=== PATIENT | male | born 1960 | race Caucasian/White ===

== ENCOUNTER → 2016-10-17 | Outpatient (CLI) | payer OTHER | END | disposition home or self-care (01) | LOC: LABWHC1 07:13 | PROVIDERS: ATTEND Nurse Practitioner | DX: F31.9 Bipolar disorder, unspecified (principal) | CPT/HCPCS: 36415; 80164 ==

== ENCOUNTER 2017-11-18 08:32 | Inpatient (IN) | payer MEDICAID, OTHER ==
--- NOTE | 2017-11-18 09:02 | ED ---
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 He states he was on and off yesterday. States this started again this morning when he woke up. He denies any injury or trauma to the area. Patient states bleeding seems to have stopped again at this time. Patient does admit that he does have some seasonal ALLERGIES. He states had some drainage coming from the nose. Patient also admits that his had thoughts of hurting himself over the last few weeks. He denies any specific plan. He does admit that he is bipolar. States he has been taking his medications here states that he has been approximately 3 weeks since he seen his counselor. He denies any homicidal thoughts or plans. Patient denies any other complaints. Patient denies any recent fever, chills, shortness of breath, chest pain, back pain, abdominal pain, dysuria or hematuria , constipation or diarrhea, headaches or visual changes, or any other complaints. - Related Data Home Medications Medication Instructions Recorded Confirmed clonazePAM [KlonoPIN] 1 mg PO TID 04/17/15 11/18/17 DULoxetine HCL [Cymbalta] 30 mg PO TID 11/18/17 11/18/17 lamoTRIgine 150 mg PO DAILY 11/18/17 11/18/17 Allergies Allergy/AdvReac Type Severity Reaction Status Date / Time No Known Allergies Allergy Verified 04/17/15 09:20 Review of Systems ROS Statement: Those systems with pertinent positive or pertinent negative responses have been documented in the HPI. ROS Other: All systems not noted in ROS Statement are negative. Past Medical History Past Medical History: Hypertension Additional Past Medical History / Comment(s): HX HTN-RESOLVED NOW PER PT, chronic back pain, anxiety, depression, and alcohol abuse. History of Any Multi-Drug Resistant Organisms: None Reported Past Surgical History: Back Surgery, Bladder Surgery, Hernia Repair Additional Past Surgical History / Comment(s): back surgery 2004 Past Anesthesia/Blood Transfusion Reactions: Motion Sickness Past Psychological History: Anxiety, Depression Smoking Status: Current every day smoker Past Alcohol Use History: Abuse, Heavy Past Drug Use History: None Reported - Past Family History Father Family Medical History: Coronary Artery Disease (CAD) Additional Family Medical History / Comment(s): Bipolar, Heart problems- Open Heart Mother Family Medical History: Cancer, Coronary Artery Disease (CAD) Additional Family Medical History / Comment(s): Breast Ca-Hx.Open Heart General Exam - General Exam Comments Initial Comments: General: The patient is awake and alert, in no distress, and does not appear acutely ill. Eye: Pupils are equal, round and reactive to light. Extra-ocular movements are intact. No nystagmus. There is normal conjunctiva bilaterally. No signs of icterus. Ears, nose, mouth and throat: There are moist mucous membranes and no oral lesions. Right left nostrils are clear no active bleeding. Posterior pharynx clear. Neck: The neck is supple, there is no tenderness or JVD. Cardiovascular: There is a regular rate and rhythm. No murmur, rub or gallop is appreciated. Respiratory: Lungs are clear to auscultation, respirations are non-labored, breath sounds are equal. No wheezes, stridor, rales, or rhonchi. Musculoskeletal: Normal ROM, no tenderness. Sensation intact. Strength 5/5. Pulses equal bilaterally 2+. Neurological: A&O x 3. CN II-XII intact, There are no obvious motor or sensory deficits. Coordination appears grossly intact. Speech is normal. Skin: Skin is warm and dry and no rashes or lesions are noted. Psychiatric: Cooperative Limitations: no limitations Course Vital Signs 11/18/17 08:51 Temperature 97.0 F L Pulse Rate 91 Respiratory 18 Rate Blood Pressure 127/68 O2 Sat by Pulse 96 Oximetry Medical Decision Making - Lab Data Lab Results 11/18/17 Range/Units 10:10 Urine Opiates Screen Not Detected (NotDetected) Ur Oxycodone Screen Not Detected (NotDetected) Urine Methadone Screen Not Detected (NotDetected) Ur Propoxyphene Screen Not Detected (NotDetected) Ur Barbiturates Screen Not Detected (NotDetected) U Tricyclic Antidepress Not Detected (NotDetected) Ur Phencyclidine Scrn Not Detected (NotDetected) Ur Amphetamines Screen Not Detected (NotDetected) U Methamphetamines Scrn Not Detected (NotDetected) U Benzodiazepines Scrn Not Detected (NotDetected) Urine Cocaine Screen Not Detected (NotDetected) U Marijuana (THC) Screen Not Detected (NotDetected) Disposition Clinical Impression: Suicidal ideation, Alcohol intoxication Disposition: ADMITTED IP TO THIS HOSP Condition: Stable Is patient prescribed a controlled substance at d/c from ED?: No Referrals: None,Stated [Primary Care Provider] - 1-2 days Time of Disposition: 13:42
[2017-11-18 11:30] LABS: Amphetamine Screen,Urine Not Detected (NotDetected); Barbiturate Screen,Urine Not Detected (NotDetected); Benzodiazepines Screen,Urine Not Detected (NotDetected); Cocaine Screen,Urine Not Detected (NotDetected); Methadone Screen, Urine Not Detected (NotDetected); Opiate Screen,Urine Not Detected (NotDetected); Oxycodone Screen, Urine Not Detected (NotDetected); Phencyclidine Screen,Urine Not Detected (NotDetected); Tricyclic Antidepressant,Urine Not Detected (NotDetected); Urn Cannabinoid Scrn Not Detected (NotDetected)
[2017-11-18] MEDS ORDERED: MAG HYDROX/AL HYDROX/SIMETH 30 ML CUP PO PRN (13:59)
[2017-11-18] MEDS ORDERED: ACETAMINOPHEN TAB 325 MG TAB PO PRN (13:59)
[2017-11-18] MEDS ORDERED: MAGNESIUM HYDROXIDE 2,400 MG/10 ML CUP PO PRN (13:59)
[2017-11-18] MEDS: NICOTINE 21MG/24HR PATCH TRANSDERM SCH (14:52)
[2017-11-18 15:07] VITALS: BMI 21.7
[2017-11-18] MEDS ORDERED: cloNIDine HCL 0.1 MG TAB PO STA (15:27)
[2017-11-18] MEDS ORDERED: OXYMETAZOLINE 0.05% NASL SPRAY 1 SPRAY BOTTLE NASAL STA (15:44)
[2017-11-18 16:20] LABS: Basophils % (A) 1 %; Eosinophils # (A) 0.2 k/uL (0-0.7); Eosinophils % (A) 2 %; HCT 50.3 % (39.0-53.0); HGB 15.9 gm/dL (13.0-17.5); Lymphocytes # (A) 1.2 k/uL (1.0-4.8); Lymphocytes % (A) 15 %; MCH 31.9 pg (25.0-35.0); MCHC 31.7 g/dL (31.0-37.0); MCV 100.6 fL (80.0-100.0); Mean Platelet Volume 6.2; Monocytes # (A) 0.9 k/uL (0-1.0); Monocytes % (A) 11 %; Neutrophils # (A) 5.5 k/uL (1.3-7.7); Neutrophils % (A) 70 %; Platelet Count 346 k/uL (150-450); RDW 13.4 % (11.5-15.5)
[2017-11-18 16:21] LABS: Prothrombin Time 9.5 sec (9.0-12.0)
[2017-11-18 16:29] LABS: ALT 83 U/L (21-72); AST 87 U/L (17-59); Albumin 4.4 g/dL (3.5-5.0); Alkaline Phosphatase 49 U/L (38-126); Anion Gap 9 mmol/L; Blood Urea Nitrogen 9 mg/dL (9-20); Calcium 9.1 mg/dL (8.4-10.2); Carbon Dioxide 28 mmol/L (22-30); Chloride 96 mmol/L (98-107); Glucose 95 mg/dL (74-99); Potassium 4.9 mmol/L (3.5-5.1); Sodium 133 mmol/L (137-145); Total Bilirubin 0.3 mg/dL (0.2-1.3); Total Protein 7.3 g/dL (6.3-8.2)
--- NOTE | 2017-11-18 16:30 | P.HPMEDMHU ---
History of Present Illness H&P Date: 11/18/17 Chief Complaint: Consult for MHU HPI 56-year-old male presented to the emergency room today by EMS, with chief complaint of epistaxis that started yesterday. He states he was on and off yesterday. States this started again this morning when he woke up. He denies any injury or trauma to the area. Patient states bleeding seems to have stopped again at this time. Patient does admit that he does have some seasonal ALLERGIES. He states had some drainage coming from the nose. Patient also admits that his had fleeting thoughts of hurting himself over the last few weeks. He denies any specific plan, but mentions he would jump off the bridge. He does admit that he is bipolar. States he has been taking his medications here states that he has been approximately 3 weeks since he seen his counselor. He denies any homicidal thoughts or plans. Patient denies any other complaints. Patient denies any recent fever, chills, shortness of breath, chest pain, back pain, abdominal pain, dysuria or hematuria, constipation or diarrhea , headaches or visual changes, or any other complaints. Per nursing reports apparently the patient blew .092 on BAT. He reports his last drink being at 1 AM this morning, has a history of alcohol withdrawals, usually drinks 6 beers daily. He was recommended for admission to the mental health unit, on arrival the patient began having right-sided nosebleed. Review of Systems Pertinent positives per HPI all other review of systems are otherwise negative Past Medical History Past Medical History: Hypertension Additional Past Medical History / Comment(s): HX HTN-RESOLVED NOW PER PT, chronic back pain/DDD, anxiety, depression, and alcohol abuse, Sinusitis, Epistaxis, Poor balance History of Any Multi-Drug Resistant Organisms: None Reported Past Surgical History: Back Surgery, Bladder Surgery, Hernia Repair Additional Past Surgical History / Comment(s): back surgery 2004 Past Anesthesia/Blood Transfusion Reactions: No Reported Reaction Past Psychological History: Anxiety, Bipolar, Depression Smoking Status: Current every day smoker Past Alcohol Use History: Abuse, Heavy Additional Past Alcohol Use History / Comment(s): 6 beers daily last drink at 0100 Past Drug Use History: None Reported - Past Family History Father Family Medical History: Coronary Artery Disease (CAD) Additional Family Medical History / Comment(s): Bipolar, Heart problems- Open Heart Mother Family Medical History: Cancer, Coronary Artery Disease (CAD) Additional Family Medical History / Comment(s): Breast Ca-Hx.Open Heart Medications and Allergies Home Medications Medication Instructions Recorded Confirmed Type clonazePAM [KlonoPIN] 1 mg PO TID 04/17/15 11/18/17 History DULoxetine HCL [Cymbalta] 30 mg PO TID 11/18/17 11/18/17 History lamoTRIgine 150 mg PO DAILY 11/18/17 11/18/17 History Allergies Allergy/AdvReac Type Severity Reaction Status Date / Time No Known Allergies Allergy Verified 11/18/17 15:36 Physical Exam Vitals: Vital Signs Temp Pulse Pulse Resp BP BP Pulse Ox 11/18/17 14:52 97.0 F L 98 20 157/97 97 11/18/17 08:51 97.0 F L 91 18 127/68 96 Intake and Output 11/18/17 11/18/17 11/18/17 06:59 14:59 22:59 Other: Weight 66.933 kg Constitutional: No acute distress, conversant, pleasant Eyes: Anicteric sclerae, moist conjunctiva, no lid-lag, PERRLA ENMT: NC/AT,Oropharynx clear, no erythema, exudates, kleenex packed in R nare Neck:Supple, FROM, no masses, or JVD, No carotid bruits; No thyromegaly Lungs: Clear to auscultation, Clear to percussion, Normal respiratory effort, no accessory muscle use Cardiovascular: Heart regular in rate and rhythm, No murmurs, gallops, or rubs no peripheral edema Abdominal: Soft Nontender, nom distended, no guarding, no rebound or rigidity, Normoactive bowel sounds No hepatomegaly, No splenomegaly, No palpable mass No abdominal wall hernia noted Skin: Normal temperature, tone, texture, turgor, No induration No subcutaneous nodules, No rash, lesions, No ulcers Extremities:No digital cyanosis No clubbing, Pedal pulses intact and symmetrical Radial pulses intact and symmetrical Normal gait and station, No calf tenderness Psychiatric: Alert and oriented to person, place and time, Appropriate affect Intact judgement Neuro: Muscles Strength 5/5 in all 4 extremities, Sensation to light touch grossly present throughout, Cranial nerves II-XII grossly intact. No focal sensory deficits Cranial Nerve Examination - Cranial Nerves Cranial Nerve II- Optic: Intact Cranial Nerve III- Oculomotor: Intact Cranial Nerve IV- Trochlear: Intact Cranial Nerve V- Trigeminal: Intact Cranial Nerve - Abducens: Intact Cranial Nerve VII- Facial: Intact Cranial Nerve VIII- Auditory: Intact Cranial Nerve IX- Glossopharyngeal: Intact Cranial Nerve X- Vagus: Intact Cranial Nerve XI- Accessory: Intact Cranial Nerve XII- Hypoglossal: Intact Results CBC & Chem 7: 11/18/17 15:51 Thrombosis Risk Factor Assmnt - Choose All That Apply Each Factor Represents 1 point: Age 41-60 years Other Risk Factors: No Other congenital or acquired thrombophilia - If yes, enter type in comment: No Thrombosis Risk Factor Assessment Total Risk Factor Score: 1 Thrombosis Risk Factor Assessment Level: Low Risk Assessment and Plan (1) Epistaxis Current Visit: Yes Status: Acute Code(s): R04.0 - EPISTAXIS SNOMED Code(s) : 751465308 (2) Suicidal ideation Current Visit: Yes Status: Acute Code(s): R45.851 - SUICIDAL IDEATIONS SNOMED Code(s): 8406095 (3) Alcohol intoxication Current Visit: Yes Status: Chronic Priority: Medium Code(s): F10.129 - ALCOHOL ABUSE WITH INTOXICATION, UNSPECIFIED SNOMED Code(s): 05868132 Plan: Patient is admitted to the mental health unit we'll defer to acute inpatient psychiatry treatment for all medical psychotherapy and ongoing CBT therapy. Given patient's history of alcoholism and he did present with acute alcohol intoxication, we'll monitor the patient for alcohol withdrawal. Check stat labs , CBC CMP PT/INR. For his epistaxis will give 2 sprays of Afrin intranasally along with Merocel packing covered by bacitracin. We'll continue to monitor patient's clinical course
[2017-11-18] MEDS: cloNIDine HCL 0.1 MG TAB PO SCH (20:01)
[2017-11-19] MEDS: NICOTINE 21MG/24HR PATCH TRANSDERM SCH (08:04)
[2017-11-19] MEDS: lamoTRIgine 100 MG TAB PO SCH (08:04)
[2017-11-19] MEDS: cloNIDine HCL 0.1 MG TAB PO SCH ×2 (08:05→19:47)
[2017-11-19 10:01] LABS: Basophils % (A) 1 %; Eosinophils # (A) 0.1 k/uL (0-0.7); Eosinophils % (A) 2 %; HCT 51.7 % (39.0-53.0); HGB 16.2 gm/dL (13.0-17.5); Lymphocytes # (A) 1.1 k/uL (1.0-4.8); Lymphocytes % (A) 19 %; MCH 31.4 pg (25.0-35.0); MCHC 31.3 g/dL (31.0-37.0); MCV 100.3 fL (80.0-100.0); Mean Platelet Volume 6.4; Monocytes # (A) 0.9 k/uL (0-1.0); Monocytes % (A) 16 %; Neutrophils # (A) 3.3 k/uL (1.3-7.7); Neutrophils % (A) 60 %; Platelet Count 382 k/uL (150-450); RBC 5.15 m/uL (4.30-5.90); RDW 13.3 % (11.5-15.5); WBC 5.5 k/uL (3.8-10.6)
[2017-11-19 10:11] LABS: ALT 77 U/L (21-72); AST 69 U/L (17-59); Albumin 4.4 g/dL (3.5-5.0); Alkaline Phosphatase 45 U/L (38-126); Anion Gap 9 mmol/L; Blood Urea Nitrogen 14 mg/dL (9-20); Calcium 9.8 mg/dL (8.4-10.2); Carbon Dioxide 31 mmol/L (22-30); Chloride 96 mmol/L (98-107); Glucose 78 mg/dL (74-99); Potassium 4.9 mmol/L (3.5-5.1); Sodium 136 mmol/L (137-145); Total Bilirubin 0.4 mg/dL (0.2-1.3); Total Protein 7.3 g/dL (6.3-8.2)
--- NOTE | 2017-11-19 11:00 | P.HP ---
Psychiatric H&P - . History & Physical: Allergies Allergy/AdvReac Type Severity Reaction Status Date / Time No Known Allergies Allergy Verified 11/18/17 15:36 Vital Signs Temp 98 F 11/19/17 06:20 Pulse 121 H 11/19/17 08:06 Resp 18 11/19/17 08:06 BP 135/87 11/19/17 08:06 Pulse Ox 97 11/18/17 14:52 Intake & Output 11/18/17 11/19/17 11/19/17 18:59 06:59 18:59 Weight 66.933 kg Laboratory Last Values WBC 5.5 k/uL (3.8-10.6) 11/19/17 09:33 RBC 5.15 m/uL (4.30-5.90) 11/19/17 09:33 Hgb 16.2 gm/dL (13.0-17.5) 11/19/17 09:33 Hct 51.7 % (39.0-53.0) 11/19/17 09:33 MCV 100.3 fL (80.0-100.0) H 11/19/17 09:33 MCH 31.4 pg (25.0-35.0) 11/19/17 09:33 MCHC 31.3 g/dL (31.0-37.0) 11/19/17 09:33 RDW 13.3 % (11.5-15.5) 11/19/17 09:33 Plt Count 382 k/uL (150-450) 11/19/17 09:33 Neutrophils % 60 % 11/19/17 09:33 Lymphocytes % 19 % 11/19/17 09:33 Monocytes % 16 % 11/19/17 09:33 Eosinophils % 2 % 11/19/17 09:33 Basophils % 1 % 11/19/17 09:33 Neutrophils # 3.3 k/uL (1.3-7.7) 11/19/17 09:33 Lymphocytes # 1.1 k/uL (1.0-4.8) 11/19/17 09:33 Monocytes # 0.9 k/uL (0-1.0) 11/19/17 09:33 Eosinophils # 0.1 k/uL (0-0.7) 11/19/17 09:33 Basophils # 0.0 k/uL (0-0.2) 11/19/17 09:33 PT 9.5 sec (9.0-12.0) 11/18/17 15:51 INR 1.0 (<1.2) 11/18/17 15:51 Sodium 136 mmol/L (137-145) L 11/19/17 09:33 Potassium 4.9 mmol/L (3.5-5.1) 11/19/17 09:33 Chloride 96 mmol/L (98-107) L 11/19/17 09:33 Carbon Dioxide 31 mmol/L (22-30) H 11/19/17 09:33 Anion Gap 9 mmol/L 11/19/17 09:33 BUN 14 mg/dL (9-20) 11/19/17 09:33 Creatinine 0.87 mg/dL (0.66-1.25) 11/19/17 09:33 Est GFR (CKD-EPI)AfAm >90 (>60 ml/min/1.73 sqM) 11/19/17 09:33 Est GFR (CKD-EPI)NonAf >90 (>60 ml/min/1.73 sqM) 11/19/17 09:33 Glucose 78 mg/dL (74-99) 11/19/17 09:33 Calcium 9.8 mg/dL (8.4-10.2) 11/19/17 09:33 Total Bilirubin 0.4 mg/dL (0.2-1.3) 11/19/17 09:33 AST 69 U/L (17-59) H 11/19/17 09:33 ALT 77 U/L (21-72) H 11/19/17 09:33 Alkaline Phosphatase 45 U/L (38-126) 11/19/17 09:33 Total Protein 7.3 g/dL (6.3-8.2) 11/19/17 09:33 Albumin 4.4 g/dL (3.5-5.0) 11/19/17 09:33 TSH 1.610 mIU/L (0.465-4.680) 11/19/17 09:33 Urine Opiates Screen Not Detected (NotDetected) 11/18/17 10:10 Ur Oxycodone Screen Not Detected (NotDetected) 11/18/17 10:10 Urine Methadone Screen Not Detected (NotDetected) 11/18/17 10:10 Ur Propoxyphene Screen Not Detected (NotDetected) 11/18/17 10:10 Ur Barbiturates Screen Not Detected (NotDetected) 11/18/17 10:10 U Tricyclic Antidepress Not Detected (NotDetected) 11/18/17 10:10 Ur Phencyclidine Scrn Not Detected (NotDetected) 11/18/17 10:10 Ur Amphetamines Screen Not Detected (NotDetected) 11/18/17 10:10 U Methamphetamines Scrn Not Detected (NotDetected) 11/18/17 10:10 U Benzodiazepines Scrn Not Detected (NotDetected) 11/18/17 10:10 Urine Cocaine Screen Not Detected (NotDetected) 11/18/17 10:10 U Marijuana (THC) Screen Not Detected (NotDetected) 11/18/17 10:10 11/19/17 10:51 IDENTIFYING DATA: This patient is a 56-year-old single male who was admitted to the mental health unit with a report of suicidal ideation in the context of alcohol intoxication. HPI: The patient presented to the emergency room with epistaxis. This was treated and during the course of his evaluation he reported having suicidal thoughts. He had verbalized to the psychiatric nurse that he had thoughts of drowning himself in the [place] or hanging himself. He had reported a history of bipolar disorder. It was noted that the patient was a poor historian and demonstrated evidence of confusion. Today the patient is pleasant and cooperative but continues to appear disorganized. He will have moments where he is more lucid but he is struggling with focused concentration and retaining information. He is not able to answer questions sufficiently enough to determine if he does have a bipolar illness. He reports feeling safe in the hospital. He describes no homicidal ideation. He is reporting no auditory or visual hallucinations or any specific delusions. Insight and judgment are impaired. He describes a history of anxiety symptoms but again struggles with specifying. PAST PSYCHIATRIC HISTORY: The patient's second psychiatric admission. He was on this mental health unit in October 2016. He has been [facility] at [facility] He has been on Cymbalta Klonopin Lamictal and Depakote. He states most recently he is on Cymbalta 20 mg 3 times a day, Klonopin 1 mg 3 times a day, Lamictal 150 mg daily. No history of suicide attempts. PMH: Chronic back pain with sciatica ALLERGIES: NO KNOWN DRUG ALLERGIES MEDICATIONS: As above CHEMICAL DEPENDENCY HISTORY: He reports using alcohol on a daily basis having at least 8 beers but oftentimes up to 14. He's been doing this for several months and prior to that he was drinking two thirds of a gallon of vodka a day. He has been in residential treatment twice the last was at [facility]. Arrangements have been made for him to go to [facility] again once he is psychiatrically stable and he is agreeable. FAMILY PSYCHIATRIC HISTORY: Several family members known to have depression and anxiety, no suicides in the family FAMILY CHEMICAL DEPENDENCY HISTORY: Several family members known to struggle with alcohol use SOCIAL HISTORY: The patient is 56 years old he single he has 2 adult children that reside in [place] one is a physician in one is a dentist. He lives alone in his own apartment. He has been unemployed since 1995 and is on a disability income. He has a 12th grade education no history of service. He has 2 brothers and 3 sisters. No legal history. No abuse history. MENTAL STATUS EXAM: The patient is a thin vanessa male appearing his stated age. He is mildly disheveled. He is pleasant and cooperative but overall appears somewhat confused. Speech is fluent and spontaneous. He appears distractible. He loses focus during the course of our conversation requiring me to repeat statements or reexplain answers to questions asked. He is reporting no suicidal or homicidal thoughts now and gives a disorganized description of his suicidal thoughts yesterday. He is reporting no auditory or visual hallucinations. He states he has struggle with paranoid thoughts in the past but feels safe here. With outstretched arms he demonstrates a fine tremor of his upper extremities. He demonstrates no verbal or physical aggressiveness. He is oriented to person place and date. He was able to name the days the week backwards after 3 trials. STRENGTHS/WEAKNESSES: Strengths: Willingness to receive voluntary treatment and willingness to go to inpatient chemical dependency treatment weaknesses ongoing alcohol use disorder INTELLECTUAL FUNCTIONING: Average IMPRESSIONS: [] 1. Depression unspecified, rule out major depressive disorder rule out bipolar depression, alcohol use disorder 2. Medical comorbidities include chronic pain PLAN: The patient has been admitted to the mental health unit he has signed in voluntarily. We reviewed his presenting symptoms and treatment options. I am unable to determine if he in fact has a bipolar disorder at this time conservatively we will remain off of the Cymbalta and continue the Lamictal. I will prescribe Ativan 1 mg 3 times a day scheduled and 1 mg every 2 hours as needed for alcohol withdrawal. We will monitor him closely using the CIME protocol. The patient is willing to attend inpatient chemical dependency treatment but at this time he is not appropriate for that level of care. Due to his disorganization he would not be able to benefit from the groups and requires further stabilization. Vital signs reviewed. He has been seen by internal medicine social work will meet with him to complete a psychosocial assessment.
[2017-11-19] MEDS: FOLIC ACID 1 MG TAB PO SCH (12:44)
[2017-11-19] MEDS: THIAMINE 100 MG TAB PO SCH (12:44)
[2017-11-19] MEDS: LORazepam 1 MG TAB PO PRN (12:45)
[2017-11-19] MEDS: LORazepam 1 MG TAB PO SCH ×2 (15:45→19:47)
[2017-11-20] MEDS: cloNIDine HCL 0.1 MG TAB PO SCH ×2 (08:51→20:25)
[2017-11-20] MEDS: lamoTRIgine 100 MG TAB PO SCH (08:51)
[2017-11-20] MEDS: NICOTINE 21MG/24HR PATCH TRANSDERM SCH (08:51)
[2017-11-20] MEDS: LORazepam 1 MG TAB PO SCH ×3 (08:51→20:26)
--- NOTE | 2017-11-20 11:30 | P.PN ---
Progress Note - Text Interval history: The patient is found in his room sleeping he follows me to an interview room. He states that he is doing okay but feels that he has some cobwebs in terms of his thinking. He does report feeling tired as he is coming off of alcohol and we're using Ativan to prevent withdrawal symptoms. Vital signs reviewed he's been tachycardic. He continues to be amenable to inpatient chemical dependency treatment a placement date has been established. He reports that his appetite been stable. He feels safe in the hospital. He's had no contact with any friends or family since he's been in the hospital he reports. Mental status exam: The patient is a thin vanessa male appearing his stated age. He is dressed in his own clothing. Eye contact is appropriate speech is fluent and spontaneous. He demonstrates some circumstantial thinking at times some tangential thinking. No loose associations or flight of ideas. He continues to struggle with focus and concentration. He does not seem to remember items we discussed from yesterday. He is reporting no suicidal or homicidal ideation. He reports no auditory or visual donations. He demonstrates no verbal or physical aggressiveness. There is only a mild tremor of upper extremities with outstretched arms. Affect is constricted. Plan: The patient will continue on his current psychotropic medication. We will continue to monitor for alcohol withdrawal. We will monitor his cognitive abilities to see if they improve. He is encouraged to participate fully in the milieu we will monitor him for safety. He requires continued psychiatric hospitalization at this time.
[2017-11-20] MEDS: THIAMINE 100 MG TAB PO SCH (12:25)
[2017-11-20] MEDS: FOLIC ACID 1 MG TAB PO SCH (12:25)
[2017-11-21] MEDS: lamoTRIgine 100 MG TAB PO SCH (08:38)
[2017-11-21] MEDS: NICOTINE 21MG/24HR PATCH TRANSDERM SCH (08:38)
[2017-11-21] MEDS: LORazepam 1 MG TAB PO SCH ×3 (08:39→21:03)
[2017-11-21] MEDS: cloNIDine HCL 0.1 MG TAB PO SCH ×2 (08:39→21:03)
[2017-11-21] MEDS: THIAMINE 100 MG TAB PO SCH (12:22)
[2017-11-21] MEDS: FOLIC ACID 1 MG TAB PO SCH (12:22)
[2017-11-21] MEDS: LORazepam 1 MG TAB PO PRN (12:26)
[2017-11-21 17:18] LABS: Appearance,Urine Clear (Clear); Bilirubin,Urine Negative (Negative); Blood,Urine Negative (Negative); Color,Urine Yellow; Glucose,Urine (UA) Negative (Negative); Ketones,Urine Negative (Negative); Leukocyte Esterase,Urine Negative (Negative); Nitrite,Urine Negative (Negative); Protein,Urine Negative (Negative); Urobilinogen,Urine <2.0 mg/dL (<2.0)
--- NOTE | 2017-11-21 19:13 | PN ---
PROGRESS NOTE patient is seen and interviewed in detail, found in better mood. He reports his mood has been better today. He still feeling having some low energy and some withdrawal symptoms from alcohol, though he said he would try to stay sober. He did sleep better last night. He denies any suicidal or homicidal ideation. He has been med compliant, tolerating well and reporting no side effects. MENTAL STATUS EXAM: Patient is alert and oriented x4. Has fair eye contact. Speech is spontaneous. Mood euthymic with flat affect. He denies any suicidal or homicidal ideation. I did not see him responding to internal stimuli. Insight and judgment improving slowly and gradually. ASSESSMENT: Major depressive disorder, recurrent, moderate, and alcohol use disorder. PLAN: Continue with the current medications. We will continue to monitor for withdrawals and offer him the support and resources in the community. SATANM / CONOR: [id number] /
[2017-11-22] MEDS: NICOTINE 21MG/24HR PATCH TRANSDERM SCH (09:07)
[2017-11-22] MEDS: lamoTRIgine 100 MG TAB PO SCH (09:07)
[2017-11-22] MEDS: FOLIC ACID 1 MG TAB PO SCH (09:08)
[2017-11-22] MEDS: THIAMINE 100 MG TAB PO SCH (09:08)
[2017-11-22] MEDS: LORazepam 1 MG TAB PO SCH ×3 (09:08→20:39)
[2017-11-22] MEDS: cloNIDine HCL 0.1 MG TAB PO SCH ×2 (09:08→20:39)
--- NOTE | 2017-11-22 12:47 | PN ---
PROGRESS NOTE The patient is seen, interviewed. Found sitting in the recreational room. Reports doing a lot better. He said so far he is liking the medication and he thinks he is getting ready to be discharged with the proper follow up. He wants to continue going to rehab services so that he can maintain sobriety. He has been promising and showing commitment to stay sober. Denies any issues. MENTAL STATUS EXAM: Patient alert and oriented x4. Has fair eye contact. Speech is spontaneous. Mood euthymic and bright affect. He denies any suicidal or homicidal ideation. I did not see him responding to internal stimuli. Insight and judgment improving. ASSESSMENT: 1. Major depressive disorder, recurrent, moderate. 2. Alcohol use disorder. PLAN: Continue the current medication as he is responding well to the medications. Supportive therapy provided. CBT therapy provided. SATNAM / CONOR: [id number] /
[2017-11-23] MEDS: lamoTRIgine 100 MG TAB PO SCH (08:08)
[2017-11-23] MEDS: NICOTINE 21MG/24HR PATCH TRANSDERM SCH (08:08)
[2017-11-23] MEDS: LORazepam 1 MG TAB PO SCH ×2 (08:08→20:07)
[2017-11-23] MEDS: cloNIDine HCL 0.1 MG TAB PO SCH ×2 (08:08→20:07)
--- NOTE | 2017-11-23 11:06 | P.PN ---
Progress Note - Text Interval history: The patient is found in group he follows me to an interview room. He states that he feels more clear. He is aware that he is scheduled to go to [facility] for inpatient chemical dependency treatment tomorrow. He has questions regarding that placement and those were addressed. He indicates that he slept last night appetite is stable. No questions regarding his medication. He feels he is no longer experiencing any symptoms of alcohol withdrawal. Mental status exam: The patient is alert he seated appropriately in his chair. Eye contact is appropriate speech is fluent spontaneous nonpressured. He was able to demonstrate a more linear thought process. He is oriented to person place and date. He is reporting no acute suicidal or homicidal ideation. He is endorsing no auditory or visual hallucinations. Insight and judgment improving. He demonstrates no verbal or physical aggressiveness. Plan: The patient appears to be clinically stabilizing. We will reduce the Ativan to twice daily. We will plan to discharge him tomorrow morning and he will be able to go to rehab by noon. We will continue to monitor him for safety and encourage full participation in the milieu.
[2017-11-23] MEDS: FOLIC ACID 1 MG TAB PO SCH (12:01)
[2017-11-23] MEDS: THIAMINE 100 MG TAB PO SCH (12:01)
[2017-11-24 06:39] VITALS: TEMP 97.9
[2017-11-24] MEDS: cloNIDine HCL 0.1 MG TAB PO SCH (08:59)
[2017-11-24] MEDS: LORazepam 1 MG TAB PO SCH (08:59)
[2017-11-24] MEDS: lamoTRIgine 100 MG TAB PO SCH (08:59)
[2017-11-24] MEDS: NICOTINE 21MG/24HR PATCH TRANSDERM SCH (08:59)
[2017-11-24] MEDS: FOLIC ACID 1 MG TAB PO SCH (08:59)
[2017-11-24 09:28] VITALS: BP 126/93; PULSE 106; RESP 18
--- NOTE | 2017-11-24 09:57 | P.DS ---
Providers Date of admission: 11/18/17 13:52 Expected date of discharge: 11/24/17 Attending physician: Cm Cobos Consults: 11/18/17 13:59 Consult Physician Routine Consulting Provider: Adina Montgomery Consult Reason/Comments: H & P & medical management Do you want consulting provider notified?: Yes Primary care physician: Stated None - Discharge Diagnosis(es) (1) Depression Current Visit: Yes Status: Acute Priority: High (2) Alcohol use disorder Current Visit: Yes Status: Acute Priority: High Hospital Course: Brief summary of admission note: This patient is a 56-year-old single male who was admitted to the mental health unit with a report of suicidal ideation in the context of alcohol use disorder. The patient originally presented to the emergency room with epistaxis he was treated and during the course of the evaluation reported suicidal ideation. He reported to the psychiatric nurse he had thoughts of drowning himself or hanging himself. He described a previous history of bipolar disorder. For full details please refer to the psychiatric evaluation dated 11/19/2017. Summary of hospital course: The patient was admitted to the mental health unit voluntarily. We reviewed his presenting symptoms and treatment options. We decided to continue the Lamictal and defer restarting the Cymbalta. We monitor for alcohol withdrawal symptoms and Ativan was used to prevent alcohol withdrawal. He was seen by internal medicine for a routine history and physical exam. The patient was initially confused this has improved over the course of the hospitalization. There may be an ongoing impairment of short- term memory. He is agreeable to attending inpatient chemical dependency treatment and that has been arranged at [place]. At this point the patient is stable for discharge from the hospital. He is scheduled to attend rehab today [place] but he is asking that this be postponed so that he can attend to several tasks he needs to complete prior to going to rehab for 28 days. The patient plans to stay at a penitentiary until he goes to rehab. He does have transportation available via his insurance. The patient's demonstrated no agitated behavior he feels stable he is reporting no suicidal or homicidal thoughts. Mental status exam: The patient is alert he is dressed in his own clothing hygiene is adequate. Speech is spontaneous fluent nonpressured. Eye contact is appropriate. He is reporting no suicidal or homicidal ideation intent or plan. In fact he is future oriented and describes several tasks he needs to complete prior to going to rehab. He reports no auditory or visual hallucinations or any specific delusions. There is no observed evidence of psychosis. He does not appear hypomanic or manic. Thought process can be linear. He demonstrates no tangential thinking loose associations or flight of ideas. At times he can be circumstantial. He demonstrates no verbal or physical aggressiveness. Affect is euthymic. Insight and judgment have improved. He is oriented to person place and date. Impressions 1. Depression and specified rule out major depressive disorder versus bipolar depression, alcohol use disorder Plan: The patient will be discharged mental health unit today. He plans on residing at a local penitentiary and till he attends inpatient chemical dependency treatment at [place]. He will continue on Lamictal 150 mg daily. We will defer restarting the Cymbalta at this time. Social work will arrange his outpatient follow-up depending on the wait time to attend [facility] inpatient chemical dependency treatment. He is instructed to abstain from any use of alcohol marijuana or any other illicit drug as it will elevate his safety risk. There is no imminent safety risk. He is verbalizing no suicidal or homicidal thoughts. He has been attending to his activities daily living such as eating sleeping and bathing. He is instructed to return to the hospital if any acute safety concerns. Patient Condition at Discharge: Stable Plan - Discharge Summary Discharge Rx Participant: No New Discharge Prescriptions: New cloNIDine HCL [Catapres] 0.1 mg PO BID #30 tab Folic Acid 1 mg PO DAILY@1200 #30 tab Nicotine 21Mg/24Hr Patch [Habitrol] 1 patch TRANSDERM DAILY #10 patch Thiamine [Vitamin B-1] 100 mg PO DAILY@1200 #30 tab Continue lamoTRIgine 150 mg PO DAILY #30 tablet Discontinued clonazePAM [KlonoPIN] 1 mg PO TID DULoxetine HCL [Cymbalta] 30 mg PO TID Discharge Medication List Folic Acid 1 mg PO DAILY@1200 #30 tab 11/24/17 [Rx] Nicotine 21Mg/24Hr Patch [Habitrol] 1 patch TRANSDERM DAILY #10 patch 11/24/17 [ Rx] Thiamine [Vitamin B-1] 100 mg PO DAILY@1200 #30 tab 11/24/17 [Rx] cloNIDine HCL [Catapres] 0.1 mg PO BID #30 tab 11/24/17 [Rx] lamoTRIgine 150 mg PO DAILY #30 tablet 11/24/17 [Rx] Follow up Appointment(s)/Referral(s): [facility] [Outside] - 11/24/17 12:00 pm (11/24/17 at 1200 ) None,Stated [Primary Care Provider] - 1-2 days
== END 2017-11-24 11:05 | disposition home or self-care (01) | DRG 885 ==
LOC: EC 08:32 → 3MHU 13:52
PROVIDERS: ADMIT Psychiatry & Neurology Psychiatry; ATTEND Psychiatry & Neurology Psychiatry
DX: F33.1 Major depressive disorder, recurrent, moderate (principal); F10.239 Alcohol dependence with withdrawal, unspecified; R45.851 Suicidal ideations; F10.229 Alcohol dependence with intoxication, unspecified; F17.200 Nicotine dependence, unspecified, uncomplicated; G89.29 Other chronic pain; I10 Essential (primary) hypertension; J30.2 Other seasonal allergic rhinitis; R04.0 Epistaxis; Z80.3 Family history of malignant neoplasm of breast; Z82.49 Family history of ischemic heart disease and other diseases of the circulatory system; Z81.1 Family history of alcohol abuse and dependence; Z81.8 Family history of other mental and behavioral disorders; Z60.2 Problems related to living alone; M54.9 Dorsalgia, unspecified; J32.9 Chronic sinusitis, unspecified
CPT/HCPCS: 80053; 80175; 80306; 81003; 82075; 84443; 85025; 85610; 99285

== ENCOUNTER 2017-11-28 06:31 | Emergency (ER) | payer OTHER ==
[2017-11-28 06:42] VITALS: RESP 18
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
[2017-11-28 12:29] VITALS: BP 128/82; PULSE 58; TEMP 98.4
== END 2017-11-28 12:29 | disposition home or self-care (01) ==
LOC: EC 06:31
DX: F32.9 Major depressive disorder, single episode, unspecified (principal); F10.129 Alcohol abuse with intoxication, unspecified; F22 Delusional disorders; F31.9 Bipolar disorder, unspecified; F17.200 Nicotine dependence, unspecified, uncomplicated
CPT/HCPCS: 99283

== ENCOUNTER 2017-11-29 22:21 | Emergency (ER) | payer OTHER ==
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
[2017-11-30 01:48] LABS: Amphetamine Screen,Urine Not Detected (NotDetected); Barbiturate Screen,Urine Not Detected (NotDetected); Benzodiazepines Screen,Urine Detected (NotDetected); Cocaine Screen,Urine Not Detected (NotDetected); Methadone Screen, Urine Not Detected (NotDetected); Opiate Screen,Urine Not Detected (NotDetected); Oxycodone Screen, Urine Not Detected (NotDetected); Phencyclidine Screen,Urine Not Detected (NotDetected); Tricyclic Antidepressant,Urine Not Detected (NotDetected); Urn Cannabinoid Scrn Not Detected (NotDetected)
[2017-11-30 02:10] VITALS: BP 133/79; PULSE 97; RESP 17; TEMP 97.3
== END 2017-11-30 02:34 | disposition home or self-care (01) ==
LOC: EC 22:21
DX: F41.9 Anxiety disorder, unspecified (principal); F17.200 Nicotine dependence, unspecified, uncomplicated
CPT/HCPCS: 80306; 82075; 99284

== ENCOUNTER 2018-01-05 13:16 | Inpatient (IN) | payer OTHER ==
[2018-01-05] MEDS ORDERED: LORazepam 2 MG/ML INJ IV STA ×3 (14:02→17:00)
[2018-01-05] MEDS ORDERED: ONDANSETRON 4 MG/2 ML VIAL IVP STA (14:04)
--- NOTE | 2018-01-05 14:10 | ED ---
General Adult HPI - General Chief complaint: Nausea/Vomiting/Diarrhea Stated complaint: BACK PAIN Time Seen by Provider: 01/05/18 13:25 Source: patient, RN notes reviewed Mode of arrival: EMS Limitations: no limitations - History of Present Illness Initial comments: This a 57-year-old male who presents emergency Department stating he has been vomiting all morning. Patient states he vomited at least 6 times per patient states she usually drinks beer a day. Patient states he only had 1 beer today. Patient states he feels like he is going to have diarrhea but he has not yet had any diarrhea. Patient states he has had some abdominal cramping. Patient states he can't stop shaking. Patient states that shaking started early this morning continues currently. Patient denies any fever chills per patient denies any chest pain or shortness of breath per patient denies any injury or trauma recently. Patient denies any near syncopal episode. Patient states he is also suicidal. - Related Data Home Medications Medication Instructions Recorded Confirmed DULoxetine HCL [Cymbalta] 30 mg PO TID 01/05/18 01/05/18 Previous Rx's Medication Instructions Recorded cloNIDine HCL [Catapres] 0.1 mg PO BID #30 tab 11/24/17 lamoTRIgine 150 mg PO DAILY #30 tablet 11/24/17 Allergies Allergy/AdvReac Type Severity Reaction Status Date / Time No Known Allergies Allergy Verified 01/05/18 14:11 Review of Systems ROS Statement: Those systems with pertinent positive or pertinent negative responses have been documented in the HPI. ROS Other: All systems not noted in ROS Statement are negative. Past Medical History Past Medical History: Hypertension Additional Past Medical History / Comment(s): HX HTN-RESOLVED NOW PER PT, chronic back pain/DDD, anxiety, depression, and alcohol abuse, Sinusitis, Epistaxis, Poor balance History of Any Multi-Drug Resistant Organisms: None Reported Past Surgical History: Back Surgery, Bladder Surgery, Hernia Repair Additional Past Surgical History / Comment(s): back surgery 2004 Past Anesthesia/Blood Transfusion Reactions: No Reported Reaction Past Psychological History: Anxiety, Bipolar, Depression Smoking Status: Current every day smoker Past Alcohol Use History: Abuse, Heavy Past Drug Use History: None Reported - Past Family History Father Family Medical History: Coronary Artery Disease (CAD) Additional Family Medical History / Comment(s): Bipolar, Heart problems- Open Heart Mother Family Medical History: Cancer, Coronary Artery Disease (CAD) Additional Family Medical History / Comment(s): Breast Ca-Hx.Open Heart General Exam - General Exam Comments Initial Comments: GENERAL: Patient is well-developed and well-nourished. Patient is nontoxic and well- hydrated and is in mild distress. Patient is having tremors. ENT: Neck is soft and supple. No significant lymphadenopathy is noted. Oropharynx is clear. Moist mucous membranes. Neck has full range of motion without eliciting any pain. EYES: The sclera were anicteric and conjunctiva were pink and moist. Extraocular movements were intact and pupils were equal round and reactive to light. Eyelids were unremarkable. PULMONARY: Unlabored respirations. Good breath sounds bilaterally. No audible rales rhonchi or wheezing was noted. CARDIOVASCULAR: There is a regular rate and rhythm without any murmurs gallops or rubs. ABDOMEN: Mild general abdominal pain. No palpable organomegaly was noted. There is no palpable pulsatile mass. SKIN: Skin is clear with no lesions or rashes and otherwise unremarkable. NEUROLOGIC: Patient is alert and oriented x3. Cranial nerves II through XII are grossly intact. Motor and sensory are also intact. Normal speech, volume and content. Symmetrical smile. MUSCULOSKELETAL: Normal extremities with adequate strength and full range of motion. No lower extremity swelling or edema. No calf tenderness. LYMPHATICS: No significant lymphadenopathy is noted PSYCHIATRIC: Patient states he suicidal Limitations: no limitations Course Vital Signs 01/05/18 01/05/18 01/05/18 13:22 14:00 15:00 Temperature Pulse Rate 83 89 87 Respiratory 20 18 Rate Blood Pressure 68/56 90/78 113/93 O2 Sat by Pulse 98 100 100 Oximetry 01/05/18 01/05/18 01/05/18 16:00 16:30 17:00 Temperature Pulse Rate 89 101 H 110 H Respiratory 18 22 Rate Blood Pressure 89/66 97/60 103/61 O2 Sat by Pulse 100 100 96 Oximetry 01/05/18 01/05/18 01/05/18 17:30 18:00 18:30 Temperature 97.1 F L Pulse Rate 99 113 H 115 H Respiratory 18 18 18 Rate Blood Pressure 110/73 95/58 83/66 O2 Sat by Pulse 100 99 99 Oximetry 01/05/18 19:00 Temperature Pulse Rate 114 H Respiratory 20 Rate Blood Pressure 139/115 O2 Sat by Pulse 99 Oximetry Medical Decision Making - Medical Decision Making EKG shows a normal sinus rhythm at 80 bpm OK interval is 162 QRS is 86 QT interval 400 QTC is 44. Patient's EKG is of somewhat back quality because the patient was shaking. Patient had a seizure while in the emergency department was assumed that it was a seizure from alcohol withdrawal patient stated he has had them before. I admitted the patient after speaking with Dr. Diaz he agreed with the admission I wrote admitting orders I put the patient withdrawal protocol for Ativan. While the patient was in the emergency department waiting for room he had black stools so I had them do an Hemoccult on them and the patient was guaiac positive. I spoke with Dr. Diaz about this and Dr. Barton admitted the patient to the unit. I ordered a type and screen. I ordered repeat CBC. PT and PTT. - Lab Data Result diagrams: 01/05/18 10:35 01/05/18 10:35 Lab Results 01/05/18 01/05/18 01/05/18 Range/Units 10:35 10:35 15:28 WBC 10.5 (3.8-10.6) k/uL RBC 3.97 L (4.30-5.90) m/uL Hgb 12.5 L D (13.0-17.5) gm/dL Hct 38.9 L (39.0-53.0) % MCV 98.0 (80.0-100.0) fL MCH 31.6 (25.0-35.0) pg MCHC 32.2 (31.0-37.0) g/dL RDW 13.2 (11.5-15.5) % Plt Count 205 (150-450) k/uL Neutrophils % 83 % Lymphocytes % 7 % Monocytes % 9 % Eosinophils % 0 % Basophils % 0 % Neutrophils # 8.7 H (1.3-7.7) k/uL Lymphocytes # 0.8 L (1.0-4.8) k/uL Monocytes # 0.9 (0-1.0) k/uL Eosinophils # 0.0 (0-0.7) k/uL Basophils # 0.0 (0-0.2) k/uL Sodium 123 L (137-145) mmol/L Potassium 3.9 (3.5-5.1) mmol/L Chloride 68 L* (98-107) mmol/L Carbon Dioxide 15 L (22-30) mmol/L Anion Gap 40 mmol/L BUN 59 H (9-20) mg/dL Creatinine 1.91 H (0.66-1.25) mg/dL Est GFR (CKD-EPI)AfAm 43 (>60 ml/min/1.73 sqM) Est GFR (CKD-EPI)NonAf 38 (>60 ml/min/1.73 sqM) Glucose 104 H (74-99) mg/dL Calcium 9.8 (8.4-10.2) mg/dL Magnesium 3.1 H (1.6-2.3) mg/dL Total Bilirubin 1.0 (0.2-1.3) mg/dL AST 1112 H (17-59) U/L ALT 680 H (21-72) U/L Alkaline Phosphatase 34 L (38-126) U/L Total Protein 6.0 L (6.3-8.2) g/dL Albumin 4.0 (3.5-5.0) g/dL Amylase 85 (30-110) U/L Lipase 80 (23-300) U/L Urine Color Yellow Urine Appearance Cloudy (Clear) Urine pH 5.5 (5.0-8.0) Ur Specific [place] 1.013 (1.001-1.035) Urine Protein 1+ H (Negative) Urine Glucose (UA) Negative (Negative) Urine Ketones 1+ H (Negative) Urine Blood Moderate H (Negative) Urine Nitrite Negative (Negative) Urine Bilirubin Negative (Negative) Urine Urobilinogen 2.0 (<2.0) mg/dL Ur Leukocyte Esterase Negative (Negative) Urine RBC <1 (0-5) /hpf Urine WBC 4 (0-5) /hpf Ur Squamous Epith Cells 1 (0-4) /hpf Hyaline Casts 32 H (0-2) /lpf Urine Mucus Few H (None) /hpf Urine Opiates Screen (NotDetected) Ur Oxycodone Screen (NotDetected) Urine Methadone Screen (NotDetected) Ur Propoxyphene Screen (NotDetected) Ur Barbiturates Screen (NotDetected) U Tricyclic Antidepress (NotDetected) Ur Phencyclidine Scrn (NotDetected) Ur Amphetamines Screen (NotDetected) U Methamphetamines Scrn (NotDetected) U Benzodiazepines Scrn (NotDetected) Urine Cocaine Screen (NotDetected) U Marijuana (THC) Screen (NotDetected) 01/05/18 Range/Units 15:28 WBC (3.8-10.6) k/uL RBC (4.30-5.90) m/uL Hgb (13.0-17.5) gm/dL Hct (39.0-53.0) % MCV (80.0-100.0) fL MCH (25.0-35.0) pg MCHC (31.0-37.0) g/dL RDW (11.5-15.5) % Plt Count (150-450) k/uL Neutrophils % % Lymphocytes % % Monocytes % % Eosinophils % % Basophils % % Neutrophils # (1.3-7.7) k/uL Lymphocytes # (1.0-4.8) k/uL Monocytes # (0-1.0) k/uL Eosinophils # (0-0.7) k/uL Basophils # (0-0.2) k/uL Sodium (137-145) mmol/L Potassium (3.5-5.1) mmol/L Chloride (98-107) mmol/L Carbon Dioxide (22-30) mmol/L Anion Gap mmol/L BUN (9-20) mg/dL Creatinine (0.66-1.25) mg/dL Est GFR (CKD-EPI)AfAm (>60 ml/min/1.73 sqM) Est GFR (CKD-EPI)NonAf (>60 ml/min/1.73 sqM) Glucose (74-99) mg/dL Calcium (8.4-10.2) mg/dL Magnesium (1.6-2.3) mg/dL Total Bilirubin (0.2-1.3) mg/dL AST (17-59) U/L ALT (21-72) U/L Alkaline Phosphatase (38-126) U/L Total Protein (6.3-8.2) g/dL Albumin (3.5-5.0) g/dL Amylase (30-110) U/L Lipase (23-300) U/L Urine Color Urine Appearance (Clear) Urine pH (5.0-8.0) Ur Specific [place] (1.001-1.035) Urine Protein (Negative) Urine Glucose (UA) (Negative) Urine Ketones (Negative) Urine Blood (Negative) Urine Nitrite (Negative) Urine Bilirubin (Negative) Urine Urobilinogen (<2.0) mg/dL Ur Leukocyte Esterase (Negative) Urine RBC (0-5) /hpf Urine WBC (0-5) /hpf Ur Squamous Epith Cells (0-4) /hpf Hyaline Casts (0-2) /lpf Urine Mucus (None) /hpf Urine Opiates Screen Not Detected (NotDetected) Ur Oxycodone Screen Not Detected (NotDetected) Urine Methadone Screen Not Detected (NotDetected) Ur Propoxyphene Screen Not Detected (NotDetected) Ur Barbiturates Screen Not Detected (NotDetected) U Tricyclic Antidepress Not Detected (NotDetected) Ur Phencyclidine Scrn Not Detected (NotDetected) Ur Amphetamines Screen Not Detected (NotDetected) U Methamphetamines Scrn Not Detected (NotDetected) U Benzodiazepines Scrn Not Detected (NotDetected) Urine Cocaine Screen Not Detected (NotDetected) U Marijuana (THC) Screen Not Detected (NotDetected) Disposition Clinical Impression: Acute vomiting, Alcoholism, Suicidal ideations, Elevated liver enzymes, Renal insufficiency, Hyponatremia, Alcohol withdrawal, Withdrawal seizures, GI bleed Disposition: ADMITTED IP TO THIS [facility] Time of Disposition: 16:24
[2018-01-05 14:25] LABS: Calcium 9.8 mg/dL (8.4-10.2); Magnesium 3.1 mg/dL (1.6-2.3); Potassium 3.9 mmol/L (3.5-5.1)
[2018-01-05] MEDS ORDERED: SODIUM CHLORIDE 0.9% 1,000 ML with MVI, ADULT NO.4 WITH VIT K 10 ML, THIAMINE 100 MG, F... IV ONE ×4 (14:30)
[2018-01-05 14:35] LABS: Basophils % (A) 0 %; Eosinophils % (A) 0 %; HCT 38.9 % (39.0-53.0); Lymphocytes # (A) 0.8 k/uL (1.0-4.8); Lymphocytes % (A) 7 %; MCH 31.6 pg (25.0-35.0); MCHC 32.2 g/dL (31.0-37.0); Mean Platelet Volume 7.4; Monocytes # (A) 0.9 k/uL (0-1.0); Monocytes % (A) 9 %; Neutrophils # (A) 8.7 k/uL (1.3-7.7); Neutrophils % (A) 83 %; Platelet Count 205 k/uL (150-450); RBC 3.97 m/uL (4.30-5.90); RDW 13.2 % (11.5-15.5); WBC 10.5 k/uL (3.8-10.6)
[2018-01-05 14:42] LABS: HGB 12.5 gm/dL (13.0-17.5)
--- NOTE | 2018-01-05 14:46 | XR ---
EXAMINATION TYPE: XR KUB DATE OF EXAM: 01/05/2018 2:39 PM CLINICAL HISTORY: Abdominal pain and vomiting TECHNIQUE: Single supine KUB image of the abdomen is obtained. COMPARISON: 01/26/2015. FINDINGS: Right lateral subcutaneous tissues are not imaged and cannot be evaluated. Scattered gas is seen in non-distended small bowel loops. Gas and fecal material is seen in non-distended colon. Ther e is no visceromegaly, pneumoperitoneum, or abnormal calcification appreciated. The lung bases are cl ear and the osseous structures are intact. Mild femoral acetabular arthropathy is seen bilaterally. P hleboliths are noted within the pelvis. IMPRESSION: Nonobstructive bowel gas pattern.
[2018-01-05] MEDS ORDERED: SODIUM CHLORIDE 0.9% 1,000 ML IV ONE ×3 (14:54→18:00)
[2018-01-05 15:44] LABS: Appearance,Urine Cloudy (Clear); Bilirubin,Urine Negative (Negative); Blood,Urine Moderate (Negative); Color,Urine Yellow; Glucose,Urine (UA) Negative (Negative); Hyaline Casts,Urine 32 /lpf (0-2); Ketones,Urine 1+ (Negative); Leukocyte Esterase,Urine Negative (Negative); Mucus,Urine Few /hpf; Nitrite,Urine Negative (Negative); PH, Urine 5.5 (5.0-8.0); Protein,Urine 1+ (Negative); RBC,Urine <1 /hpf (0-5); Specific Gravity,Urine 1.013 (1.001-1.035); Squamous Epithelial Cell,Urine 1 /hpf (0-4); WBC,Urine 4 /hpf (0-5)
[2018-01-05 15:52] LABS: Amphetamine Screen,Urine Not Detected (NotDetected); Barbiturate Screen,Urine Not Detected (NotDetected); Benzodiazepines Screen,Urine Not Detected (NotDetected); Cocaine Screen,Urine Not Detected (NotDetected); Methadone Screen, Urine Not Detected (NotDetected); Opiate Screen,Urine Not Detected (NotDetected); Oxycodone Screen, Urine Not Detected (NotDetected); Phencyclidine Screen,Urine Not Detected (NotDetected); Tricyclic Antidepressant,Urine Not Detected (NotDetected); Urn Cannabinoid Scrn Not Detected (NotDetected)
[2018-01-05] MEDS ORDERED: THIAMINE 100 MG/ML 2 ML VIAL IM STA (17:35)
[2018-01-05] MEDS ORDERED: LORazepam 2 MG/ML INJ IV PRN ×2 (17:35)
[2018-01-05] MEDS ORDERED: PANTOPRAZOLE 40 MG/10 ML VIAL IVP ONE (20:13)
[2018-01-05 21:08] LABS: HCT 32.8 % (39.0-53.0); HGB 10.5 gm/dL (13.0-17.5); MCH 30.9 pg (25.0-35.0); MCHC 32.1 g/dL (31.0-37.0); MCV 96.4 fL (80.0-100.0); Mean Platelet Volume 7.4; Platelet Count 154 k/uL (150-450); RBC 3.41 m/uL (4.30-5.90); RDW 13.2 % (11.5-15.5); WBC 11.7 k/uL (3.8-10.6)
--- NOTE | 2018-01-05 21:26 | P.HPIM ---
History of Present Illness H&P Date: 01/05/18 Chief Complaint: Nausea and vomiting Patient is a 57-year-old male with a known history of hypertension and alcohol abuse initially presented to ER with complaints of nausea and vomiting all day. Patient is also complaining of abdominal pain, mainly in the epigastric region , cramping type when asked specifically. Patient says that he has vomited all day about 5-6 times today. Patient does drink alcohol on daily basis. Patient says that she drank only 1 beer today. Patient is currently homeless. Denied any complaints of chest pain. No fever no chills. Patient says that has been shaky at home. Patient denied any fall or trauma. Patient does have a history of anxiety, depression and bipolar disorder. Patient says that she has been having suicidal ideation recently. Denied any Susa. Hemoglobin 12.5, sodium 123 and chloride 68, bicarb is 15, BUN 59 and creatinine 1.91 AST 1112, ALT 680 UDS negative Blood pressure 97/60, heart rate 116 KUB x-ray showed nonspecific bowel gas pattern. Patient is a poor historian and unable to provide reliable history. Late in the evening today, patient did have a large dark-colored bowel movement along with hematemesis. Repeat CBC stat was ordered. Patient will be transferred to MICU for close monitoring. Review of Systems Constitutional: Patient denies any fever. Patient did have chills at home . Generalized weakness.. Abdomen: Patient does have nausea and vomiting and cramping abdominal pain. Cardiovascular: Patient denies any chest pain or short of breath no palpitations. Respiratory: patient denied any cough is from production. No shortness of breath Neurologic: Patient denied any numbness or tingling headache. Musculoskeletal: Patient denies any complaints of joint swelling or deformity. Skin: Negative Psychiatric: Depression and suicidal ideation Endocrine: No heat or cold intolerance. No recent weight gain. Genitourinary: No dysuria or hematuria. All other 14 point ROS negative except the above Past Medical History Past Medical History: Hypertension Additional Past Medical History / Comment(s): HX HTN-RESOLVED NOW PER PT, chronic back pain/DDD, anxiety, depression, and alcohol abuse, Sinusitis, Epistaxis, Poor balance History of Any Multi-Drug Resistant Organisms: None Reported Past Surgical History: Back Surgery, Bladder Surgery, Hernia Repair Additional Past Surgical History / Comment(s): back surgery 2004 Past Anesthesia/Blood Transfusion Reactions: No Reported Reaction Past Psychological History: Anxiety, Bipolar, Depression Smoking Status: Current every day smoker Past Alcohol Use History: Abuse, Heavy Past Drug Use History: None Reported - Past Family History Father Family Medical History: Coronary Artery Disease (CAD) Additional Family Medical History / Comment(s): Bipolar, Heart problems- Open Heart Mother Family Medical History: Cancer, Coronary Artery Disease (CAD) Additional Family Medical History / Comment(s): Breast Ca-Hx.Open Heart Medications and Allergies Home Medications Medication Instructions Recorded Confirmed Type cloNIDine HCL [Catapres] 0.1 mg PO BID #30 tab 11/24/17 01/05/18 Rx lamoTRIgine 150 mg PO DAILY #30 tablet 11/24/17 01/05/18 Rx DULoxetine HCL [Cymbalta] 30 mg PO TID 01/05/18 01/05/18 History Allergies Allergy/AdvReac Type Severity Reaction Status Date / Time No Known Allergies Allergy Verified 01/05/18 14:11 Physical Exam Vitals: Vital Signs Temp Pulse Resp BP Pulse Ox 01/05/18 19:00 114 H 20 139/115 99 01/05/18 18:30 115 H 18 83/66 99 01/05/18 18:00 97.1 F L 113 H 18 95/58 99 01/05/18 17:30 99 18 110/73 100 01/05/18 17:00 110 H 22 103/61 96 01/05/18 16:30 101 H 18 97/60 100 01/05/18 16:00 89 89/66 100 01/05/18 15:00 87 113/93 100 01/05/18 14:00 89 18 90/78 100 01/05/18 13:22 83 20 68/56 98 Intake and Output 01/05/18 01/05/18 01/05/18 06:59 14:59 22:59 Other: Weight 68.039 kg PHYSICAL EXAMINATION: Patient is lying in the bed comfortably, no acute distress, awake alert and oriented but lethargic and Covered with 2-3 blankets... HEENT: Normocephalic. Neck is supple. Pupils reactive. Nostrils clear. Oral cavity is moist. Ears reveal no drainage. Neck reveals no JVD, carotid bruits, or thyromegaly. CHEST EXAMINATION: Trachea is central. Symmetrical expansion. Bibasilar diminished air entry. Lung garza clear to auscultation and percussion. CARDIAC: Normal S1, S2 with no gallops. No murmurs ABDOMEN: Soft. Mild epigastric tenderness. Bowel sounds normal. No organomegaly. No abdominal bruits. Extremities: reveal no edema. No clubbing or cyanosis Neurologically awake, alert, oriented x3 with well-coordinated movements. Patient is lethargic. No focal deficits noted Skin: No rash or skin lesions. Psychiatric: Coperative. Could not be assessed completely. Musculoskeletal: No joint swelling or deformity. Normal range of motion. Results CBC & Chem 7: 01/05/18 20:30 01/05/18 10:35 Labs: Abnormal Lab Results - Last 24 Hours (Table) 01/05/18 01/05/18 01/05/18 Range/Units 10:35 10:35 15:28 RBC 3.97 L (4.30-5.90) m/uL Hgb 12.5 L D (13.0-17.5) gm/dL Hct 38.9 L (39.0-53.0) % Neutrophils # 8.7 H (1.3-7.7) k/uL Lymphocytes # 0.8 L (1.0-4.8) k/uL Sodium 123 L (137-145) mmol/L Chloride 68 L* (98-107) mmol/L Carbon Dioxide 15 L (22-30) mmol/L BUN 59 H (9-20) mg/dL Creatinine 1.91 H (0.66-1.25) mg/dL Glucose 104 H (74-99) mg/dL Magnesium 3.1 H (1.6-2.3) mg/dL AST 1112 H (17-59) U/L ALT 680 H (21-72) U/L Alkaline Phosphatase 34 L (38-126) U/L Total Protein 6.0 L (6.3-8.2) g/dL Urine Protein 1+ H (Negative) Urine Ketones 1+ H (Negative) Urine Blood Moderate H (Negative) Hyaline Casts 32 H (0-2) /lpf Urine Mucus Few H (None) /hpf Thrombosis Risk Factor Assmnt - DVT/VTE Prophylaxis DVT/VTE Prophylaxis: Mechanical Prophylaxis ordered Assessment and Plan Assessment: Acute GI bleed. With dark-colored stools and hematemesis while in the hospital. Likely upper GI. Intractable Nausea vomiting and cramping abdominal pain on admission Acute blood loss anemia Severe alcohol abuse Hypertension. Currently hypotensive on admission Chronic back pain/DDD Anxiety/depression and bipolar disorder History of epistaxis and poor balance Currently a day smoker DVT prophylaxis with SCDs Plan: Patient will be continued on IV Protonix twice a day and monitor closely in the ICU. Continue to monitor H&H and IV fluids will be continued. GI consult. Transfuse if needed. Patient will be kept nothing by mouth and further recommendations based on the clinical course. Prognosis is guarded. Time with Patient: Greater than 30
[2018-01-05 21:38] LABS: Band Neutrophils % 15 %; Lymphocytes # (M) 2.22 k/uL (1.0-4.8); Metamyelocytes # (M) 0.12 k/uL (0); Metamyelocytes % 1 %; Monocytes # (M) 1.17 k/uL (0-1.0); Myelocytes # (M) 0.35 k/uL (0); Myelocytes % 3 %; Neutrophils % (M) 54 %; Nucleated Red Blood Cells 0 /100 WBC (0-0); Total Cells Counted 200
[2018-01-05 21:39] LABS: Toxic Vacuolation Present
[2018-01-05 21:42] LABS: Polychromasia Present
[2018-01-05 21:43] LABS: Large Platelets Present
[2018-01-05 22:31] LABS: INR 1.2 (<1.2); Partial Thromboplastin Time 24.2 sec (22.0-30.0); Prothrombin Time 11.1 sec (9.0-12.0)
[2018-01-05 23:01] LABS: Glucose,Whole Blood 99 mg/dL (75-99)
[2018-01-06] MEDS ORDERED: ACETAMINOPHEN IV (For NPO) 1,000 MG in EMPTY BAG 1 BAG IVPB ONE (00:13)
[2018-01-06] MEDS ORDERED: ONDANSETRON 4 MG/2 ML VIAL IVP PRN (00:16)
[2018-01-06] MEDS ORDERED: NALOXONE 0.4 MG/ML 1 ML VIAL IV PRN (03:59)
[2018-01-06] MEDS: SODIUM CHLORIDE 0.9% 1,000 ML IV SCH ×3 (04:28→12:54)
[2018-01-06 05:52] LABS: Calcium 7.7 mg/dL (8.4-10.2); Magnesium 2.4 mg/dL (1.6-2.3); Phosphorus 4.2 mg/dL (2.5-4.5)
[2018-01-06 06:10] LABS: HCT 29.8 % (39.0-53.0); HGB 10.2 gm/dL (13.0-17.5); MCH 32.5 pg (25.0-35.0); MCHC 34.1 g/dL (31.0-37.0); MCV 95.3 fL (80.0-100.0); Mean Platelet Volume 7.6; Platelet Count 139 k/uL (150-450); RBC 3.13 m/uL (4.30-5.90); RDW 13.2 % (11.5-15.5); WBC 9.3 k/uL (3.8-10.6)
--- NOTE | 2018-01-06 07:47 | XR ---
EXAMINATION TYPE: XR chest 1V DATE OF EXAM: 01/06/2018 HISTORY: Shortness of breath. COMPARISON: 01/26/2015 TECHNIQUE: Single view of the chest is submitted. FINDINGS: Demonstrated are scattered senescent parenchymal change. There is no evidence for focal infiltrate. The heart is stable. Hilar and mediastinal structures are within normal limits. Degenerative changes are seen of the dorsal spine. IMPRESSION: 1. Chronic changes without evidence for acute pulmonary disease.
[2018-01-06 08:10] LABS: Band Neutrophils % 22 %; Lymphocytes # (M) 0.47 k/uL (1.0-4.8); Metamyelocytes # (M) 0.65 k/uL (0); Metamyelocytes % 7 %; Monocytes # (M) 0.47 k/uL (0-1.0); Neutrophils % (M) 63 %; Nucleated Red Blood Cells 0 /100 WBC (0-0); Total Cells Counted 200
[2018-01-06 08:11] LABS: Toxic Vacuolation Present
[2018-01-06] MEDS: PANTOPRAZOLE 40 MG/10 ML VIAL IVP SCH ×2 (08:34→20:48)
[2018-01-06] MEDS ORDERED: SODIUM CHLORIDE 0.9% 1,000 ML IV ONE (09:43)
--- NOTE | 2018-01-06 10:20 | P.CNPUL ---
History of Present Illness Consult date: 01/06/18 Requesting physician: Cecilia Diaz Reason for consult: other Chief complaint: Anemia, GI bleeding, seizures, hyponatremia History of present illness: This is a 57-year-old white male patient who was brought into the emergency department per EMS for evaluation of vomiting. Patient is a habitual EtOH user. On the day of presentation patient states he only had 1 beer. He was having some abdominal cramping, he couldn't stop shaking. He denied any fever or chills, denied any chest pain or shortness of breath. Patient also admitted to being suicidal, patient has a history of major depression, and he follows with a counselor on the regular basis. Past medical history is significant for hypertension, anxiety, depression, bipolar disorder, nicotine dependence. X- ray of the abdomen showed nonobstructive bowel gas pattern. In the emergency department patient's serum sodium was noted to be low at 123, chloride of 68, CO2 of 15, BUN of 59 and creatinine of 1.91, LFTs were elevated, with AST of 1112, ALT of 680, alkaline phosphatase of 34.. Lipase and amylase were within normal limits. White count was 11.7, hemoglobin was 10.5, platelet, was 154. Subsequently patient started having a seizure in the emergency department, he was given of a dose of IV Ativan, and the seizure stopped. He then had a large black tarry bowel movement, he became hypotensive, with a blood pressure 68/56, tachycardic. He was given IV boluses of 2 L a 0.9 normal saline, and his maintenance IV fluids were infusing at 75 ML per hour. he was started on CPAP protocol for EtOH withdrawal. Patient denies any prior history of GI bleeding, he is not on any anticoagulants, no aspirin, NSAIDs. INR was 1.2. Denies any prior history of seizure disorder. Patient was transferred to the intensive care unit, where he is having frequent black tarry stools, no hematemesis, he has not received any blood transfusions. He still mildly tachycardic, with a heart rate in the 105 BPM, he is afebrile, current blood pressure is 96/66. Patient is a bit lethargic, but is able to arouse to verbal stimuli, he is oriented 3, he denies being suicidal, is able to provide history. Calm and cooperative, no signs of delirium noted at this time, no further seizure episodes. GI service has been consult that, we will also request evaluation by psychiatry. Review of Systems All systems: negative Constitutional: Denies chills, Denies fever Eyes: denies blurred vision, denies pain Ears, nose, mouth and throat: Denies headache, Denies sore throat Cardiovascular: Denies chest pain, Denies shortness of breath Respiratory: Denies cough Gastrointestinal: Denies abdominal pain, Denies diarrhea, Denies nausea, Denies vomiting Musculoskeletal: Denies myalgias Integumentary: Denies pruritus, Denies rash Neurological: Denies numbness, Denies weakness Psychiatric: Denies anxiety, Denies depression Endocrine: Denies fatigue, Denies weight change Past Medical History Past Medical History: Hypertension Additional Past Medical History / Comment(s): HX HTN-RESOLVED NOW PER PT, chronic back pain/DDD, anxiety, depression, and alcohol abuse w/withdrawl , Sinusitis, Epistaxis, Poor balance, 2015 anemia required blood tranfusion. History of Any Multi-Drug Resistant Organisms: None Reported Past Surgical History: Back Surgery, Bladder Surgery, Hernia Repair Additional Past Surgical History / Comment(s): back surgery 2004 Past Anesthesia/Blood Transfusion Reactions: No Reported Reaction Smoking Status: Current every day smoker - Past Family History Father Family Medical History: Coronary Artery Disease (CAD) Additional Family Medical History / Comment(s): Bipolar, Heart problems- Open Heart Mother Family Medical History: Cancer, Coronary Artery Disease (CAD) Additional Family Medical History / Comment(s): Breast Ca-Hx.Open Heart Medications and Allergies Home Medications Medication Instructions Recorded Confirmed Type cloNIDine HCL [Catapres] 0.1 mg PO BID #30 tab 11/24/17 01/05/18 Rx lamoTRIgine 150 mg PO DAILY #30 tablet 11/24/17 01/05/18 Rx DULoxetine HCL [Cymbalta] 30 mg PO TID 01/05/18 01/05/18 History Allergies Allergy/AdvReac Type Severity Reaction Status Date / Time No Known Allergies Allergy Verified 01/05/18 14:11 Physical Exam Vitals: Vital Signs Temp Pulse Pulse Resp BP BP Pulse Ox 01/06/18 09:00 105 H 14 117/77 98 01/06/18 08:00 97.6 F 105 H 20 113/85 96 01/06/18 07:00 105 H 13 96/66 95 01/06/18 06:00 116 H 18 92/66 92 L 01/06/18 05:00 104 H 15 94/65 92 L 01/06/18 04:11 97.9 F 110 H 13 86/62 94 L 01/06/18 03:00 86/62 01/06/18 02:00 112 H 16 94/67 01/06/18 01:00 115 H 16 87/65 01/06/18 00:05 98.2 F 120 H 18 90/62 01/05/18 23:00 98.1 F 130 H 16 89/64 94 L 01/05/18 22:51 124 H 20 123/101 91 L 01/05/18 21:25 104 H 20 111/79 91 L 01/05/18 21:00 98 136/111 01/05/18 19:00 114 H 20 139/115 99 01/05/18 18:30 115 H 18 83/66 99 01/05/18 18:00 97.1 F L 113 H 18 95/58 99 01/05/18 17:30 99 18 110/73 100 01/05/18 17:00 110 H 22 103/61 96 01/05/18 16:30 101 H 18 97/60 100 01/05/18 16:00 89 89/66 100 01/05/18 15:00 87 113/93 100 01/05/18 14:00 89 18 90/78 100 01/05/18 13:22 83 20 68/56 98 Intake and Output 01/05/18 01/06/18 01/06/18 22:59 06:59 14:59 Intake Total 3000 800 1200 Output Total 1600 Balance 3000 -800 1200 Intake: IV 800 1200 Sodium Chloride 0.9% 1, 800 1200 000 ml @ 100 mls/hr IV . Q10H [facility] Rx#:[id number] Amount of Fluid Infused ( 3000 ml) Output: Urine 1600 Other: Voiding Method Urinal Urinal # Voids 1 0 # Bowel Movements 1 1 Weight 60 kg GENERAL EXAM: Slightly lethargic, but easily arousable to verbal stimuli, 57- year-old white male patient comfortable in no apparent distress. HEAD: Normocephalic/atraumatic. EYES: Normal reaction of pupils, equal size. Conjunctiva pink, sclera white. NOSE: Clear with pink turbinates. THROAT: No erythema or exudates. NECK: No masses, no JVD, no thyroid enlargement, no adenopathy. CHEST: No chest wall deformity. Symmetrical expansion. LUNGS: Equal air entry with no crackles, wheeze, rhonchi or dullness. CVS: Regular rate and rhythm, normal S1 and S2, no gallops, no murmurs, no rubs ABDOMEN: Soft, nontender. No hepatosplenomegaly, normal bowel sounds, no guarding or rigidity. EXTREMITIES: No clubbing, no edema, no cyanosis, 2+ pulses and upper and lower extremities. MUSCULOSKELETAL: Muscle strength and tone normal. SPINE: No scoliosis or deformity SKIN: No rashes CENTRAL NERVOUS SYSTEM: Alert and oriented -3. No focal deficits, tone is normal in all 4 extremities. PSYCHIATRIC: Alert and oriented -3. Appropriate affect. Intact judgment and insight. Results - Laboratory Findings CBC and BMP: 01/06/18 04:44 01/06/18 04:44 PT/INR, D-dimer PT 11.1 sec (9.0-12.0) 01/05/18 20:30 INR 1.2 (<1.2) H 01/05/18 20:30 Abnormal lab findings: Abnormal Labs 01/05/18 01/05/18 01/05/18 10:35 10:35 15:28 WBC RBC 3.97 L Hgb 12.5 L D Hct 38.9 L Plt Count Neutrophils # 8.7 H Neutrophils # (Manual) Lymphocytes # 0.8 L Lymphocytes # (Manual) Monocytes # (Manual) Metamyelocytes # (Man) Myelocytes # (Manual) INR Sodium 123 L Chloride 68 L* Carbon Dioxide 15 L BUN 59 H Creatinine 1.91 H Glucose 104 H Calcium Magnesium 3.1 H AST 1112 H ALT 680 H Alkaline Phosphatase 34 L Total Protein 6.0 L Urine Protein 1+ H Urine Ketones 1+ H Urine Blood Moderate H Hyaline Casts 32 H Urine Mucus Few H 01/05/18 01/05/18 01/06/18 20:30 20:30 04:44 WBC 11.7 H RBC 3.41 L 3.13 L Hgb 10.5 L 10.2 L Hct 32.8 L 29.8 L Plt Count 139 L Neutrophils # Neutrophils # (Manual) 8.00 H 7.90 H Lymphocytes # Lymphocytes # (Manual) 0.47 L Monocytes # (Manual) 1.17 H Metamyelocytes # (Man) 0.12 H 0.65 H Myelocytes # (Manual) 0.35 H INR 1.2 H Sodium Chloride Carbon Dioxide BUN Creatinine Glucose Calcium Magnesium AST ALT Alkaline Phosphatase Total Protein Urine Protein Urine Ketones Urine Blood Hyaline Casts Urine Mucus 01/06/18 04:44 WBC RBC Hgb Hct Plt Count Neutrophils # Neutrophils # (Manual) Lymphocytes # Lymphocytes # (Manual) Monocytes # (Manual) Metamyelocytes # (Man) Myelocytes # (Manual) INR Sodium 124 L Chloride 86 L Carbon Dioxide BUN 69 H Creatinine Glucose 116 H Calcium 7.7 L Magnesium 2.4 H AST ALT Alkaline Phosphatase Total Protein Urine Protein Urine Ketones Urine Blood Hyaline Casts Urine Mucus - Diagnostic Findings Chest x-ray: report reviewed, image reviewed Additional studies: EKG reviewed Assessment and Plan Plan: Assessment: #1. Acute blood loss anemia secondary to GI bleeding, patient is having black tarry stools, and the source is likely upper GI tract #2. Hyponatremia, likely hypovolemic, proving with IV fluid boluses #3. New onset seizures, likely related to electrolyte imbalance, and EtOH withdrawal #4. Suicidal ideation #5. History of major depression #6. Acute kidney injury #7. Elevated liver enzymes #9. EtOH dependence #10. Nicotine dependence, ongoing #11. Hypertension Plan: Continue with serial H&H's, we will give the patient another liter bolus of 0.9 normal saline. Continue with IV Protonix, SCDs for DVT prophylaxis, continue with the CIWA, we'll request GI service and psychiatric evaluation for history of depression, and suicidal ideation. Continue with the suicidal precautions. Patient remain in the intensive care. I performed a history & physical examination of the patient and discussed their management with my nurse practitioner, Becky Hudson. I reviewed the nurse practitioner's note and agree with the documented findings and plan of care. Lung sounds are clear. The findings and the impression was discussed with the patient. I attest to the documentation by the nurse practitioner. Time with Patient: Greater than 30
--- NOTE | 2018-01-06 10:59 | P.CONS ---
History of Present Illness - Reason for Consult Consult date: 01/06/18 GI bleeding Requesting physician: Cecilia Diaz - Chief Complaint Nausea vomiting suicidal ideations - History of Present Illness 57-year-old gentleman history of EtOH abuse daily for several years beer intake , anxiety, depression, recent epistaxis, admitted with nausea vomiting suicidal ideations. Consultation requested for GI bleed evaluation. Denies hematemesis hematochezia melena but reports darker brown near black bowel movements. Reports lower abdominal discomfort. Afebrile. Hemoglobin 12.5 presently 10.2. Platelet 139. Previous hemoglobin last month was 16.2. INR 1.2. FOBT positive. BUN 59. Creatinine 1.9. Total bilirubin 1.0. AST 1112. ALT 680. AP 34. No NSAIDs or aspirin antiplatelet medications. Unsure if patient has a history of EGD colonoscopy in the past. Review of medical records patient had some labile blood pressures upon admission as low as systolically 50s. Review of Systems RConstitutional: Denies fever, chills, sweats, weight gain, or loss. HEENT: Negative for migraines, blurred vision or loss, earaches, drainage, tinnitus, oral mucosal lesions, dysphagia, or odynophagia. Cardiac: Negative for chest pain, arrhythmias, or palpitation. Respiratory: Negative for shortness of breath, hemoptysis, cough, or sputum production. Gastrointestinal: See HPI for pertinent findings. Genitourinary: Negative for hematuria, urgency, frequency, polyuria, dysuria, or penile discharge. Musculoskeletal: Negative for muscle aches, swelling, arthritis, and arthralgias. Neurologic: Negative for stroke or TIA. Endocrine: Negative for thyroid problems. Skin: Negative for rash or itching. Psychiatric: History of depression and anxiety admitted with suicidal ideations Past Medical History Past Medical History: Hypertension Additional Past Medical History / Comment(s): HX HTN-RESOLVED NOW PER PT, chronic back pain/DDD, anxiety, depression, and alcohol abuse w/withdrawl , Sinusitis, Epistaxis, Poor balance, 2015 anemia required blood tranfusion. History of Any Multi-Drug Resistant Organisms: None Reported Past Surgical History: Back Surgery, Bladder Surgery, Hernia Repair Additional Past Surgical History / Comment(s): back surgery 2004 Past Anesthesia/Blood Transfusion Reactions: No Reported Reaction Smoking Status: Current every day smoker - Past Family History Father Family Medical History: Coronary Artery Disease (CAD) Additional Family Medical History / Comment(s): Bipolar, Heart problems- Open Heart Mother Family Medical History: Cancer, Coronary Artery Disease (CAD) Additional Family Medical History / Comment(s): Breast Ca-Hx.Open Heart Medications and Allergies Home Medications Medication Instructions Recorded Confirmed Type cloNIDine HCL [Catapres] 0.1 mg PO BID #30 tab 11/24/17 01/05/18 Rx lamoTRIgine 150 mg PO DAILY #30 tablet 11/24/17 01/05/18 Rx DULoxetine HCL [Cymbalta] 30 mg PO TID 01/05/18 01/05/18 History Allergies Allergy/AdvReac Type Severity Reaction Status Date / Time No Known Allergies Allergy Verified 01/05/18 14:11 Physical Exam Vitals: Vital Signs Temp Pulse Pulse Resp BP BP Pulse Ox 01/06/18 08:00 97.6 F 105 H 20 113/85 96 01/06/18 07:00 105 H 13 96/66 95 01/06/18 06:00 116 H 18 92/66 92 L 01/06/18 05:00 104 H 15 94/65 92 L 01/06/18 04:11 97.9 F 110 H 13 86/62 94 L 01/06/18 03:00 86/62 01/06/18 02:00 112 H 16 94/67 01/06/18 01:00 115 H 16 87/65 01/06/18 00:05 98.2 F 120 H 18 90/62 01/05/18 23:00 98.1 F 130 H 16 89/64 94 L 01/05/18 22:51 124 H 20 123/101 91 L 01/05/18 21:25 104 H 20 111/79 91 L 01/05/18 21:00 98 136/111 01/05/18 19:00 114 H 20 139/115 99 01/05/18 18:30 115 H 18 83/66 99 01/05/18 18:00 97.1 F L 113 H 18 95/58 99 01/05/18 17:30 99 18 110/73 100 01/05/18 17:00 110 H 22 103/61 96 01/05/18 16:30 101 H 18 97/60 100 01/05/18 16:00 89 89/66 100 01/05/18 15:00 87 113/93 100 01/05/18 14:00 89 18 90/78 100 01/05/18 13:22 83 20 68/56 98 Intake and Output 01/05/18 01/06/18 01/06/18 22:59 06:59 14:59 Intake Total 3000 800 200 Output Total 1600 Balance 3000 -800 200 Intake: IV 800 200 Sodium Chloride 0.9% 1, 800 200 000 ml @ 100 mls/hr IV . Q10H [facility] Rx#:[id number] Amount of Fluid Infused ( 3000 ml) Output: Urine 1600 Other: Voiding Method Urinal # Voids 1 0 # Bowel Movements 1 1 Weight 60 kg General appearance: The patient is alert, oriented, in no acute distress. Slightly drowsy. HET: Head is normocephalic and atraumatic. Pupils are equal and reactive. Oropharynx is clear without lesions. Neck: Supple without lymphadenopathy. Trachea midline. Heart: S1 S2. Regular rate and rhythm. Lungs: No crackles or wheezes are heard. Abdomen: Soft, mild bilateral lower abdominal tenderness, nondistended with bowel sounds. No peritoneal signs. No palpable organomegaly or masses. Extremities: Normal skin color and turgor. No cyanosis, rash, ulceration, clubbing, or edema. Radial and pedal pulses are 2/4 bilaterally. Neurological: No focal deficits. Strength and sensation are grossly intact. Results CBC & Chem 7: 01/07/18 05:00 01/07/18 05:00 Labs: Abnormal Lab Results - Last 24 Hours (Table) 01/05/18 01/05/18 01/05/18 Range/Units 10:35 10:35 15:28 WBC (3.8-10.6) k/uL RBC 3.97 L (4.30-5.90) m/uL Hgb 12.5 L D (13.0-17.5) gm/dL Hct 38.9 L (39.0-53.0) % Plt Count (150-450) k/uL Neutrophils # 8.7 H (1.3-7.7) k/uL Neutrophils # (Manual) (1.3-7.7) k/uL Lymphocytes # 0.8 L (1.0-4.8) k/uL Lymphocytes # (Manual) (1.0-4.8) k/uL Monocytes # (Manual) (0-1.0) k/uL Metamyelocytes # (Man) (0) k/uL Myelocytes # (Manual) (0) k/uL INR (<1.2) Sodium 123 L (137-145) mmol/L Chloride 68 L* (98-107) mmol/L Carbon Dioxide 15 L (22-30) mmol/L BUN 59 H (9-20) mg/dL Creatinine 1.91 H (0.66-1.25) mg/dL Glucose 104 H (74-99) mg/dL Calcium (8.4-10.2) mg/dL Magnesium 3.1 H (1.6-2.3) mg/dL AST 1112 H (17-59) U/L ALT 680 H (21-72) U/L Alkaline Phosphatase 34 L (38-126) U/L Total Protein 6.0 L (6.3-8.2) g/dL Urine Protein 1+ H (Negative) Urine Ketones 1+ H (Negative) Urine Blood Moderate H (Negative) Hyaline Casts 32 H (0-2) /lpf Urine Mucus Few H (None) /hpf 01/05/18 01/05/18 01/06/18 Range/Units 20:30 20:30 04:44 WBC 11.7 H (3.8-10.6) k/uL RBC 3.41 L 3.13 L (4.30-5.90) m/uL Hgb 10.5 L 10.2 L (13.0-17.5) gm/dL Hct 32.8 L 29.8 L (39.0-53.0) % Plt Count 139 L (150-450) k/uL Neutrophils # (1.3-7.7) k/uL Neutrophils # (Manual) 8.00 H 7.90 H (1.3-7.7) k/uL Lymphocytes # (1.0-4.8) k/uL Lymphocytes # (Manual) 0.47 L (1.0-4.8) k/uL Monocytes # (Manual) 1.17 H (0-1.0) k/uL Metamyelocytes # (Man) 0.12 H 0.65 H (0) k/uL Myelocytes # (Manual) 0.35 H (0) k/uL INR 1.2 H (<1.2) Sodium (137-145) mmol/L Chloride (98-107) mmol/L Carbon Dioxide (22-30) mmol/L BUN (9-20) mg/dL Creatinine (0.66-1.25) mg/dL Glucose (74-99) mg/dL Calcium (8.4-10.2) mg/dL Magnesium (1.6-2.3) mg/dL AST (17-59) U/L ALT (21-72) U/L Alkaline Phosphatase (38-126) U/L Total Protein (6.3-8.2) g/dL Urine Protein (Negative) Urine Ketones (Negative) Urine Blood (Negative) Hyaline Casts (0-2) /lpf Urine Mucus (None) /hpf 01/06/18 Range/Units 04:44 WBC (3.8-10.6) k/uL RBC (4.30-5.90) m/uL Hgb (13.0-17.5) gm/dL Hct (39.0-53.0) % Plt Count (150-450) k/uL Neutrophils # (1.3-7.7) k/uL Neutrophils # (Manual) (1.3-7.7) k/uL Lymphocytes # (1.0-4.8) k/uL Lymphocytes # (Manual) (1.0-4.8) k/uL Monocytes # (Manual) (0-1.0) k/uL Metamyelocytes # (Man) (0) k/uL Myelocytes # (Manual) (0) k/uL INR (<1.2) Sodium 124 L (137-145) mmol/L Chloride 86 L (98-107) mmol/L Carbon Dioxide (22-30) mmol/L BUN 69 H (9-20) mg/dL Creatinine (0.66-1.25) mg/dL Glucose 116 H (74-99) mg/dL Calcium 7.7 L (8.4-10.2) mg/dL Magnesium 2.4 H (1.6-2.3) mg/dL AST (17-59) U/L ALT (21-72) U/L Alkaline Phosphatase (38-126) U/L Total Protein (6.3-8.2) g/dL Urine Protein (Negative) Urine Ketones (Negative) Urine Blood (Negative) Hyaline Casts (0-2) /lpf Urine Mucus (None) /hpf Assessment and Plan (1) Acute vomiting Narrative/Plan: 57-year-old male history of long-standing EtOH abuse admitted with nausea vomiting Hemoccult-positive stool lower abdominal pain with documentation of hypotension elevated transaminases without jaundice. Elevated liver enzymes multifactorial combination of ischemic hepatitis as well as component of alcohol hepatitis underlying viral hepatitis cannot be excluded but felt to be less likely. Possible peptic ulcer disease possible possible alcoholic gastritis esophagitis duodenitis, esophageal varices and portal hypertensive gastropathy needs to be kept within the differential with a history of long- standing alcoholism. Mild coagulopathy and mild thrombocytopenia. Current Visit: Yes Status: Acute Code(s): R11.10 - VOMITING, UNSPECIFIED SNOMED Code(s): 20915079 (2) Positive occult stool blood test Current Visit: Yes Status: Acute Code(s): R19.5 - OTHER FECAL ABNORMALITIES SNOMED Code(s): 02916959 (3) Alcoholism Current Visit: Yes Status: Chronic Priority: High Code(s): F10.20 - ALCOHOL DEPENDENCE, UNCOMPLICATED SNOMED Code(s): 7117644 (4) Elevated liver enzymes Current Visit: Yes Status: Acute Code(s): R74.8 - ABNORMAL LEVELS OF OTHER SERUM ENZYMES SNOMED Code(s): 674035007 (5) Suicidal ideation Current Visit: Yes Status: Acute Priority: High Code(s): R45.851 - SUICIDAL IDEATIONS SNOMED Code(s): 4509669 (6) Acute blood loss anemia Narrative/Plan: Possible GI bleed Current Visit: Yes Status: Acute Code(s): D62 - ACUTE POSTHEMORRHAGIC ANEMIA SNOMED Code(s): 047180976 (7) Acute kidney injury Current Visit: Yes Status: Acute Code(s): N17.9 - ACUTE KIDNEY FAILURE, UNSPECIFIED SNOMED Code(s): 51339899 Plan: 1. Protonix 40 mg twice daily. Ultrasound of the abdomen. Viral studies. Daily CBC, CMP, PT/INR. We'll check ammonia level. Hepatitis screen. EGD contingent on clinical course. 2. Alcohol abstinence advised. 3. Psychiatry consult. Thank you for this kind referral and the opportunity to participate in the care of your patient. This consultation was discussed with Dr. Rowe. The impression and plan of care have been directed as dictated.
[2018-01-06 11:41] LABS: HCT 26.8 % (39.0-53.0); HGB 9.2 gm/dL (13.0-17.5); MCH 32.8 pg (25.0-35.0); MCHC 34.3 g/dL (31.0-37.0); MCV 95.5 fL (80.0-100.0); Mean Platelet Volume 7.6; Platelet Count 138 k/uL (150-450); RDW 13.2 % (11.5-15.5); WBC 11.9 k/uL (3.8-10.6)
[2018-01-06] MEDS: THIAMINE 100 MG TAB PO SCH ×2 (12:53→16:48)
--- NOTE | 2018-01-06 14:04 | US ---
EXAMINATION TYPE: US abdomen limited DATE OF EXAM: 01/06/2018 COMPARISON: NONE CLINICAL HISTORY: elevated liver enzymes. EXAM MEASUREMENTS: Liver Length: 15.9 cm Gallbladder Wall: 0.1 cm CBD: 0.4 cm Right Kidney: 21.0 x 6.4 x 5.0 cm Pancreas: wnl Liver: wnl Gallbladder: 12.1 x 4.3 x 3.9cm Evidence for sonographic Gresham's sign: No CBD: wnl Right Kidney: wnl IMPRESSION: 1. gallbladder hydrops with a small amount of pericholecystic fluid. No definite cholelithiasis or wa ll thickening this time.
--- NOTE | 2018-01-06 14:13 | P.CN ---
Psychiatric Consult - . Consult date: 01/06/18 Consult:: 01/06/18 09:22 Depression and suicidal ideation Assessment and Plan Assessment: Patient is a 57-year-old male with a known history of hypertension and alcohol abuse initially presented to ER with complaints of nausea and vomiting all day. Patient is also complaining of abdominal pain, mainly in the epigastric region , cramping type when asked specifically. Patient says that he has vomited all day about 5-6 times today. Patient does drink alcohol on daily basis. Patient says that she drank only 1 beer today. Patient is currently homeless. Denied any complaints of chest pain. No fever no chills. Patient says that has been shaky at home. Patient denied any fall or trauma. Patient does have a history of anxiety, depression and bipolar disorder. Patient says that she has been having suicidal ideation recently. Past Medical History Past Medical History: Hypertension Additional Past Medical History / Comment(s): HX HTN-RESOLVED NOW PER PT, chronic back pain/DDD, anxiety, depression, and alcohol abuse, Sinusitis, Epistaxis, Poor balance History of Any Multi-Drug Resistant Organisms: None Reported Past Surgical History: Back Surgery, Bladder Surgery, Hernia Repair Additional Past Surgical History / Comment(s): surgery 2004 Past Anesthesia/Blood Transfusion Reactions: No Reported Reaction Past Psychological History: Anxiety, Bipolar, Depression Smoking Status: Current every day smoker Past Alcohol Use History: Abuse, Heavy Past Drug Use History: None Reported - Past Family History Father Family Medical History: Coronary Artery Disease (CAD) Additional Family Medical History / Comment(s): Bipolar, Heart problems- Open Heart Mother Family Medical History: Cancer, Coronary Artery Disease (CAD) Additional Family Medical History / Comment(s): Breast Ca-Hx.Open Heart Musculoskeletal Examination - Abnormal/Involuntary Movements: [ tremors] Strength: [ weakness:] Muscle Tone: [ flaccid] Gait: wide-based] Station: unsteady Mental Status Examination - this is a 57-year-old male lying in hospital bed who looks severely ill who complains of depression since 1996 and chronic alcoholic. He has little to no insight about how to take care of himself. General Appearance: [disheveled, bizarre, appears older than stated age Speech/Language: [slow, slurred, mumbling, hesitant, halting, monotone, soft] Attitude/Behavior: [withdrawn, indifferent] Mood: [ depressed, anxious, fearful, hopelessness] Affect: [flat, incongruent, labile, blunted constricted] Orientation: [time, person, place situation] Thought Content: [wnl Risk Factors: [He is suicidal (ideations, plan) Perception: [wnl Thought Processes: [ concrete, circumstantial] Concentration/Attention Span: [ impaired] [Per observation and interview with the patient] Recent Memory: impaired] [0 out of 3 in 3 minutes] Remote Memory: [wnl ] [past events, as related history] Intelligence: [below average] [based on history, based on vocabulary, syntax, grammar, and content] Judgement: poor] [per patient's behavior/history of present illness] Insight: [ poor] [understanding severity of illness/history of present illness] Psychiatric clinical impression: This is a chronic alcohol use disorder severe in nature and major depressive disorder. Psychiatric recommendations: Detox protocol's written and continue one-to-one sitter for his suicidal ideation (1) Alcoholism Current Visit: Yes Status: Chronic Priority: High Code(s): F10.20 - ALCOHOL DEPENDENCE, UNCOMPLICATED SNOMED Code(s): 7324248 (2) Depression Current Visit: No Status: Acute Priority: High Code(s): F32.9 - MAJOR DEPRESSIVE DISORDER, SINGLE EPISODE, UNSPECIFIED SNOMED Code(s): 49638288 (3) Suicidal ideation Current Visit: Yes Status: Acute Priority: High Code(s): R45.851 - SUICIDAL IDEATIONS SNOMED Code(s): 9401349 Plan: Continue detoxifications medical stabilization and continue with sitter is at the bedside since he is suicidal at the current time Time with Patient: Less than 30
[2018-01-06 14:57] LABS: Albumin 2.4 g/dL (3.5-5.0); Bilirubin, Delta 0.5 mg/dL (0.0-0.2); Bilirubin,Unconjugated 0.1 mg/dL (0.0-1.1); Total Bilirubin 0.6 mg/dL (0.2-1.3); Total Protein 4.4 g/dL (6.3-8.2)
[2018-01-06] MEDS: LORazepam 2 MG/ML INJ IV PRN (16:48)
[2018-01-06 18:07] LABS: HCT 27.9 % (39.0-53.0); HGB 9.2 gm/dL (13.0-17.5); MCH 32.2 pg (25.0-35.0); MCV 97.6 fL (80.0-100.0); Platelet Count 151 k/uL (150-450); RBC 2.86 m/uL (4.30-5.90); RDW 13.4 % (11.5-15.5); WBC 14.5 k/uL (3.8-10.6)
[2018-01-06 20:47] LABS: Hepatitis A Antibody IgM Non-Reactive (Non-Reactive); Hepatitis B Core IgM Non-Reactive (Non-Reactive)
[2018-01-07 00:52] LABS: HCT 26.3 % (39.0-53.0); HGB 8.9 gm/dL (13.0-17.5); MCH 32.6 pg (25.0-35.0); MCHC 33.9 g/dL (31.0-37.0); MCV 96.2 fL (80.0-100.0); Platelet Count 133 k/uL (150-450); RBC 2.73 m/uL (4.30-5.90); RDW 13.3 % (11.5-15.5)
[2018-01-07] MEDS: SODIUM CHLORIDE 0.9% 1,000 ML IV SCH ×3 (05:00→21:28)
[2018-01-07 05:51] LABS: ALT 976 U/L (21-72); Albumin 2.2 g/dL (3.5-5.0); Alkaline Phosphatase 28 U/L (38-126); Anion Gap 4 mmol/L; Blood Urea Nitrogen 35 mg/dL (9-20); Calcium 7.7 mg/dL (8.4-10.2); Carbon Dioxide 24 mmol/L (22-30); Chloride 105 mmol/L (98-107); Glucose 87 mg/dL (74-99); Magnesium 2.3 mg/dL (1.6-2.3); Phosphorus 2.1 mg/dL (2.5-4.5); Potassium 3.8 mmol/L (3.5-5.1); Sodium 133 mmol/L (137-145); Total Bilirubin 0.6 mg/dL (0.2-1.3); Total Protein 4.2 g/dL (6.3-8.2)
[2018-01-07 06:01] LABS: Basophils % (A) 0 %; Eosinophils % (A) 0 %; HCT 26.4 % (39.0-53.0); HGB 8.7 gm/dL (13.0-17.5); Lymphocytes # (A) 0.7 k/uL (1.0-4.8); Lymphocytes % (A) 6 %; MCH 32.4 pg (25.0-35.0); MCV 98.2 fL (80.0-100.0); Mean Platelet Volume 7.1; Monocytes # (A) 0.4 k/uL (0-1.0); Monocytes % (A) 3 %; Neutrophils # (A) 10.3 k/uL (1.3-7.7); Neutrophils % (A) 90 %; Platelet Count 160 k/uL (150-450); RBC 2.69 m/uL (4.30-5.90); RDW 13.4 % (11.5-15.5); WBC 11.5 k/uL (3.8-10.6)
[2018-01-07 06:16] LABS: AST 1351 U/L (17-59)
--- NOTE | 2018-01-07 08:05 | XR ---
EXAMINATION TYPE: XR chest 1V DATE OF EXAM: 01/07/2018 COMPARISON: Prior chest x-ray 01/06/2018 HISTORY: Shortness of breath TECHNIQUE: Single frontal view of the chest is obtained. FINDINGS: Suspect there are skinfolds bilaterally. There are overlying cardiac leads. Technique is so mewhat apical lordotic and rotated. Question retrocardiac density. There is no focal air space opaci ty, pleural effusion, or pneumothorax seen. The cardiac silhouette size is within normal limits. T he osseous structures are intact. IMPRESSION: No acute process. Retrocardiac density is indeterminate, correlate for possible hiatal h ernia, dedicated imaging could be performed for better evaluation.
[2018-01-07] MEDS: PANTOPRAZOLE 40 MG/10 ML VIAL IVP SCH ×2 (10:51→21:25)
[2018-01-07] MEDS: LORazepam 2 MG/ML INJ IV PRN (11:06)
[2018-01-07] MEDS: THIAMINE 100 MG TAB PO SCH ×2 (11:13→18:12)
[2018-01-07] MEDS ORDERED: MORPHINE SULFATE 2 MG/ML SYRINGE IVP PRN (12:27)
--- NOTE | 2018-01-07 15:00 | P.PN ---
Subjective Progress Note Date: 01/07/18 Principal diagnosis: Acute alcohol hepatitis suicidal ideations Ultrasound abdomen gallbladder hydrops no definite cholelithiasis. White count 11.5. Hemoglobin 8.7, 12.5 on admission. Platelet 160. Hepatitis screen nonreactive. Transaminases yesterday increased AST 3385. ALT 1451 but improved this morning AST 1351. ALT 976. AP 28. Total bilirubin 0.6. Ammonia 12. Objective - Vital Signs Vital signs: Vital Signs Temp 98.3 F 01/07/18 13:00 Pulse 85 01/07/18 14:00 Resp 13 01/07/18 14:00 BP 109/64 01/07/18 14:00 Pulse Ox 96 01/07/18 14:00 Intake & Output 01/06/18 01/07/18 01/07/18 18:59 06:59 18:59 Intake Total 2100 1200 700 Output Total 651 475 Balance 1449 725 700 Weight 55.7 kg Intake: IV 2100 1200 700 Sodium Chloride 0.9% 2099 1200 700 000 ml @ 100 mls/hr IV . Q10H [facility] Rx#:[id number] Output: Urine 650 475 Stool 1 Other: Voiding Method Urinal Urinal Urinal # Voids 1 1 0 # Bowel Movements 1 1 - Exam General appearance: The patient is alert, oriented, in no acute distress. HET: Head is normocephalic and atraumatic. Pupils are equal and reactive. Oropharynx is clear without lesions. Neck: Supple without lymphadenopathy. Trachea midline. Heart: S1 S2. Regular rate and rhythm. Lungs: No crackles or wheezes are heard. Abdomen: Soft, nontender, nondistended with bowel sounds. No peritoneal signs. No palpable organomegaly or masses. Extremities: Normal skin color and turgor. No cyanosis, rash, ulceration, clubbing, or edema. Radial and pedal pulses are 2/4 bilaterally. Neurological: No focal deficits. Strength and sensation are grossly intact. - Labs CBC & Chem 7: 01/07/18 05:00 01/07/18 05:00 Labs: Abnormal Lab Results - Last 24 Hours (Table) 01/06/18 01/06/18 01/07/18 Range/Units 04:44 17:53 00:30 WBC 14.5 H 12.0 H (3.8-10.6) k/uL RBC 2.86 L 2.73 L (4.30-5.90) m/uL Hgb 9.2 L 8.9 L (13.0-17.5) gm/dL Hct 27.9 L 26.3 L (39.0-53.0) % Plt Count 133 L (150-450) k/uL Neutrophils # (1.3-7.7) k/uL Lymphocytes # (1.0-4.8) k/uL Sodium (137-145) mmol/L BUN (9-20) mg/dL Creatinine (0.66-1.25) mg/dL Calcium (8.4-10.2) mg/dL Phosphorus (2.5-4.5) mg/dL Delta Bilirubin 0.5 H (0.0-0.2) mg/dL AST 3385 H (17-59) U/L ALT 1451 H (21-72) U/L Alkaline Phosphatase 31 L (38-126) U/L Total Protein 4.4 L (6.3-8.2) g/dL Albumin 2.4 L (3.5-5.0) g/dL 01/07/18 01/07/18 Range/Units 05:00 05:00 WBC 11.5 H (3.8-10.6) k/uL RBC 2.69 L (4.30-5.90) m/uL Hgb 8.7 L (13.0-17.5) gm/dL Hct 26.4 L (39.0-53.0) % Plt Count (150-450) k/uL Neutrophils # 10.3 H (1.3-7.7) k/uL Lymphocytes # 0.7 L (1.0-4.8) k/uL Sodium 133 L (137-145) mmol/L BUN 35 H (9-20) mg/dL Creatinine 0.55 L (0.66-1.25) mg/dL Calcium 7.7 L (8.4-10.2) mg/dL Phosphorus 2.1 L (2.5-4.5) mg/dL Delta Bilirubin (0.0-0.2) mg/dL AST 1351 H (17-59) U/L ALT 976 H (21-72) U/L Alkaline Phosphatase 28 L (38-126) U/L Total Protein 4.2 L (6.3-8.2) g/dL Albumin 2.2 L (3.5-5.0) g/dL Assessment and Plan (1) Acute vomiting Narrative/Plan: 57-year-old male history of long-standing EtOH abuse admitted with nausea vomiting Hemoccult-positive stool lower abdominal pain with documentation of hypotension elevated transaminases without jaundice. Elevated liver enzymes multifactorial combination of ischemic hepatitis as well as component of alcohol hepatitis underlying viral hepatitis possible but felt to be less likely. Possible peptic ulcer disease possible possible alcoholic gastritis esophagitis duodenitis, esophageal varices and portal hypertensive gastropathy needs to be kept within the differential with a history of long-standing alcoholism. Mild coagulopathy and mild thrombocytopenia. Current Visit: Yes Status: Acute Code(s): R11.10 - VOMITING, UNSPECIFIED SNOMED Code(s): 20648719 (2) Positive occult stool blood test Current Visit: Yes Status: Acute Code(s): R19.5 - OTHER FECAL ABNORMALITIES SNOMED Code(s): 15858134 (3) Alcoholism Current Visit: Yes Status: Chronic Priority: High Code(s): F10.20 - ALCOHOL DEPENDENCE, UNCOMPLICATED SNOMED Code(s): 1731389 (4) Elevated liver enzymes Current Visit: Yes Status: Acute Code(s): R74.8 - ABNORMAL LEVELS OF OTHER SERUM ENZYMES SNOMED Code(s): 712902211 (5) Suicidal ideation Current Visit: Yes Status: Acute Priority: High Code(s): R45.851 - SUICIDAL IDEATIONS SNOMED Code(s): 7183949 (6) Acute blood loss anemia Narrative/Plan: Possible GI bleed Current Visit: Yes Status: Acute Code(s): D62 - ACUTE POSTHEMORRHAGIC ANEMIA SNOMED Code(s): 508047974 (7) Acute kidney injury Current Visit: Yes Status: Acute Code(s): N17.9 - ACUTE KIDNEY FAILURE, UNSPECIFIED SNOMED Code(s): 68461926 Plan: 1. Protonix 40 mg twice daily. Daily CBC, CMP, PT/INR. No episodes of bleeding today patient is hungry will allow liquid diet for dinner. NPO after midnight for EGD tomorrow. 2. Alcohol abstinence advised. 3. Psychiatry consult appreciated. Assessment and plan of care discussed with Dr. Rowe
--- NOTE | 2018-01-07 15:45 | P.PN ---
Subjective Progress Note Date: 01/07/18 Principal diagnosis: Acute GI bleeding, hypovolemic hyponatremia, new onset seizures and suicidal ideations. This is a 57-year-old white male patient who was brought into the emergency department per EMS for evaluation of vomiting. Patient is a habitual EtOH user. On the day of presentation patient states he only had 1 beer. He was having some abdominal cramping, he couldn't stop shaking. He denied any fever or chills, denied any chest pain or shortness of breath. Patient also admitted to being suicidal, patient has a history of major depression, and he follows with a counselor on the regular basis. Past medical history is significant for hypertension, anxiety, depression, bipolar disorder, nicotine dependence. X- ray of the abdomen showed nonobstructive bowel gas pattern. In the emergency department patient's serum sodium was noted to be low at 123, chloride of 68, CO2 of 15, BUN of 59 and creatinine of 1.91, LFTs were elevated, with AST of 1112, ALT of 680, alkaline phosphatase of 34.. Lipase and amylase were within normal limits. White count was 11.7, hemoglobin was 10.5, platelet, was 154. Subsequently patient started having a seizure in the emergency department, he was given of a dose of IV Ativan, and the seizure stopped. He then had a large black tarry bowel movement, he became hypotensive, with a blood pressure 68/56, tachycardic. He was given IV boluses of 2 L a 0.9 normal saline, and his maintenance IV fluids were infusing at 75 ML per hour. he was started on CPAP protocol for EtOH withdrawal. Patient denies any prior history of GI bleeding, he is not on any anticoagulants, no aspirin, NSAIDs. INR was 1.2. Denies any prior history of seizure disorder. Patient was transferred to the intensive care unit, where he is having frequent black tarry stools, no hematemesis, he has not received any blood transfusions. He still mildly tachycardic, with a heart rate in the 105 BPM, he is afebrile, current blood pressure is 96/66. Patient is a bit lethargic, but is able to arouse to verbal stimuli, he is oriented 3, he denies being suicidal, is able to provide history. Calm and cooperative, no signs of delirium noted at this time, no further seizure episodes. GI service has been consult that, we will also request evaluation by psychiatry. Patient was reevaluated today on 01/07/2018, remains in the ICU, relatively asymptomatic, denies any suicidal ideations, his hemoglobin today is 8.7, it was 12.5 on admission. Hepatitis screen has been negative And the rest of the liver enzymes are abnormal consistent with acute alcohol hepatitis. GI staff is recommending at least EGD to be done tomorrow, and that will be to reevaluate his GI blood losses. Concerned about the possibility of peptic ulcer disease or possible alcoholic gastritis/esophagitis/esophageal varices. Patient continues to have a sitter at bedside, although he denies any suicidal thoughts at this point. All labs were reviewed, his electrodes are normal renal profile is normal liver enzymes are elevated as noted above with AST of 1351 ALT of 976. Objective - Vital Signs Vital signs: Vital Signs Temp 98.3 F 01/07/18 13:00 Pulse 90 01/07/18 15:00 Resp 12 01/07/18 15:00 BP 137/94 01/07/18 15:00 Pulse Ox 97 01/07/18 15:00 Intake & Output 01/06/18 01/07/18 01/07/18 18:59 06:59 18:59 Intake Total 2100 1200 800 Output Total 651 475 Balance 1449 725 800 Weight 55.7 kg Intake: IV 2100 1200 800 Sodium Chloride 0.9% 1, 2100 1200 800 000 ml @ 100 mls/hr IV . Q10H [facility] Rx#:[id number] Output: Urine 650 475 Stool 1 Other: Voiding Method Urinal Urinal Urinal # Voids 1 1 0 # Bowel Movements 1 1 - Exam General appearance: Physical exam revealed a 57-year-old black male, in no distress. Asymptomatic at the time of my evaluation. HET: PERRLA, EOMI, atraumatic, normocephalic. Pale conjunctiva was noted. Neck: Supple, no neck masses, no JVD, no thyroid thyromegaly, no stridor.. Heart: S1 S2. Regular rate and rhythm. Lungs: Diminished breath sounds at the bases, no rhonchi and no wheezes. Symmetrical chest expansion is noted. Abdomen: Soft nontender no megaly no rebound no guarding, positive bowel sounds.. Extremities: No clubbing edema or cyanosis. Good distal pulses bilaterally. Neurological: No gross focal neurologic deficits. Psychiatric: Normal mood affect and mental status examination. Musculoskeletal: No limitations in range of motion, no deformities. Lymphatics: No lymphadenopathy. - Labs CBC & Chem 7: 01/07/18 05:00 01/07/18 05:00 Labs: Abnormal Lab Results - Last 24 Hours (Table) 01/06/18 01/07/18 01/07/18 Range/Units 17:53 00:30 05:00 WBC 14.5 H 12.0 H 11.5 H (3.8-10.6) k/uL RBC 2.86 L 2.73 L 2.69 L (4.30-5.90) m/uL Hgb 9.2 L 8.9 L 8.7 L (13.0-17.5) gm/dL Hct 27.9 L 26.3 L 26.4 L (39.0-53.0) % Plt Count 133 L (150-450) k/uL Neutrophils # 10.3 H (1.3-7.7) k/uL Lymphocytes # 0.7 L (1.0-4.8) k/uL Sodium (137-145) mmol/L BUN (9-20) mg/dL Creatinine (0.66-1.25) mg/dL Calcium (8.4-10.2) mg/dL Phosphorus (2.5-4.5) mg/dL AST (17-59) U/L ALT (21-72) U/L Alkaline Phosphatase (38-126) U/L Total Protein (6.3-8.2) g/dL Albumin (3.5-5.0) g/dL 01/07/18 Range/Units 05:00 WBC (3.8-10.6) k/uL RBC (4.30-5.90) m/uL Hgb (13.0-17.5) gm/dL Hct (39.0-53.0) % Plt Count (150-450) k/uL Neutrophils # (1.3-7.7) k/uL Lymphocytes # (1.0-4.8) k/uL Sodium 133 L (137-145) mmol/L BUN 35 H (9-20) mg/dL Creatinine 0.55 L (0.66-1.25) mg/dL Calcium 7.7 L (8.4-10.2) mg/dL Phosphorus 2.1 L (2.5-4.5) mg/dL AST 1351 H (17-59) U/L ALT 976 H (21-72) U/L Alkaline Phosphatase 28 L (38-126) U/L Total Protein 4.2 L (6.3-8.2) g/dL Albumin 2.2 L (3.5-5.0) g/dL Assessment and Plan Assessment: #1. Acute blood loss anemia secondary to GI bleeding, patient is having black tarry stools, discussed with gastroenterology, may undergo EGD tomorrow. Concerned about erosive gastritis, peptic ulcer disease, duodenitis, and possible dysphagia basis. #2. Hypovolemic hyponatremia, improved with hydration. #3. New onset seizures, likely related to electrolyte imbalance, or possibly alcohol withdrawal. #4. Suicidal ideation, psychiatric consultation was initiated. #5. History of major depression #6. Acute kidney injury, resolved. #7. Elevated liver enzymes #9. EtOH dependence #10. Nicotine dependence, ongoing #11. Hypertension Recommendation: Agree with EGD planning for tomorrow, continue present supportive care measures, will continue to follow. Time with Patient: Less than 30
[2018-01-07] MEDS: traMADol 50 MG TAB PO PRN ×2 (16:32→21:23)
[2018-01-07] MEDS ORDERED: Potassium Replacement Protocol 1 EACH MISC MISCELLANE PRN (17:03)
[2018-01-07] MEDS ORDERED: POTASSIUM CHLORIDE ER 20 MEQ TAB.ER PO ONE (18:00)
[2018-01-07] MEDS ORDERED: LACTATED RINGERS 1,000 ML IV SCH (20:56)
[2018-01-07 22:43] LABS: Basophils % (A) 0 %; Eosinophils # (A) 0.1 k/uL (0-0.7); Eosinophils % (A) 1 %; HCT 22.3 % (39.0-53.0); HGB 7.3 gm/dL (13.0-17.5); Lymphocytes # (A) 0.9 k/uL (1.0-4.8); Lymphocytes % (A) 10 %; MCH 31.6 pg (25.0-35.0); MCHC 32.5 g/dL (31.0-37.0); MCV 97.3 fL (80.0-100.0); Monocytes # (A) 0.5 k/uL (0-1.0); Monocytes % (A) 5 %; Neutrophils # (A) 7.6 k/uL (1.3-7.7); Neutrophils % (A) 83 %; Platelet Count 145 k/uL (150-450); RDW 13.5 % (11.5-15.5); WBC 9.1 k/uL (3.8-10.6)
[2018-01-08] MEDS: traMADol 50 MG TAB PO PRN ×2 (04:59→12:47)
[2018-01-08 06:26] VITALS: BP 111/72; PULSE 95; RESP 16; TEMP 96.8
[2018-01-08 08:34] LABS: INR 0.9 (<1.2); Prothrombin Time 9.3 sec (9.0-12.0)
[2018-01-08 08:45] LABS: ALT 664 U/L (21-72); AST 633 U/L (17-59); Albumin 2.2 g/dL (3.5-5.0); Alkaline Phosphatase 37 U/L (38-126); Anion Gap 4 mmol/L; Blood Urea Nitrogen 15 mg/dL (9-20); Calcium 7.9 mg/dL (8.4-10.2); Carbon Dioxide 25 mmol/L (22-30); Chloride 106 mmol/L (98-107); Glucose 82 mg/dL (74-99); Magnesium 1.8 mg/dL (1.6-2.3); Phosphorus 2.1 mg/dL (2.5-4.5); Potassium 3.8 mmol/L (3.5-5.1); Sodium 135 mmol/L (137-145); Total Bilirubin 0.4 mg/dL (0.2-1.3); Total Protein 4.3 g/dL (6.3-8.2)
[2018-01-08 08:59] LABS: Basophils % (A) 0 %; Eosinophils # (A) 0.1 k/uL (0-0.7); Eosinophils % (A) 2 %; HCT 23.2 % (39.0-53.0); HGB 7.5 gm/dL (13.0-17.5); Lymphocytes % (A) 12 %; MCH 31.4 pg (25.0-35.0); MCHC 32.2 g/dL (31.0-37.0); MCV 97.5 fL (80.0-100.0); Monocytes # (A) 0.6 k/uL (0-1.0); Monocytes % (A) 7 %; Neutrophils # (A) 6.6 k/uL (1.3-7.7); Neutrophils % (A) 78 %; Platelet Count 163 k/uL (150-450); RBC 2.38 m/uL (4.30-5.90); RDW 13.5 % (11.5-15.5); WBC 8.5 k/uL (3.8-10.6)
[2018-01-08] MEDS: PANTOPRAZOLE 40 MG/10 ML VIAL IVP SCH (09:58)
[2018-01-08] MEDS: THIAMINE 100 MG TAB PO SCH (11:20)
--- NOTE | 2018-01-08 12:01 | P.PN ---
Subjective Progress Note Date: 01/08/18 Principal diagnosis: jGI bleeding, hypovolemic hyponatremia, new onset seizures and suicidal ideations This is a 57-year-old white male patient who was brought into the emergency department per EMS for evaluation of vomiting. Patient is a habitual EtOH user. On the day of presentation patient states he only had 1 beer. He was having some abdominal cramping, he couldn't stop shaking. He denied any fever or chills, denied any chest pain or shortness of breath. Patient also admitted to being suicidal, patient has a history of major depression, and he follows with a counselor on the regular basis. Past medical history is significant for hypertension, anxiety, depression, bipolar disorder, nicotine dependence. X- ray of the abdomen showed nonobstructive bowel gas pattern. In the emergency department patient's serum sodium was noted to be low at 123, chloride of 68, CO2 of 15, BUN of 59 and creatinine of 1.91, LFTs were elevated, with AST of 1112, ALT of 680, alkaline phosphatase of 34.. Lipase and amylase were within normal limits. White count was 11.7, hemoglobin was 10.5, platelet, was 154. Subsequently patient started having a seizure in the emergency department, he was given of a dose of IV Ativan, and the seizure stopped. He then had a large black tarry bowel movement, he became hypotensive, with a blood pressure 68/56, tachycardic. He was given IV boluses of 2 L a 0.9 normal saline, and his maintenance IV fluids were infusing at 75 ML per hour. he was started on CPAP protocol for EtOH withdrawal. Patient denies any prior history of GI bleeding, he is not on any anticoagulants, no aspirin, NSAIDs. INR was 1.2. Denies any prior history of seizure disorder. Patient was transferred to the intensive care unit, where he is having frequent black tarry stools, no hematemesis, he has not received any blood transfusions. He still mildly tachycardic, with a heart rate in the 105 BPM, he is afebrile, current blood pressure is 96/66. Patient is a bit lethargic, but is able to arouse to verbal stimuli, he is oriented 3, he denies being suicidal, is able to provide history. Calm and cooperative, no signs of delirium noted at this time, no further seizure episodes. GI service has been consult that, we will also request evaluation by psychiatry. Patient was reevaluated today on 01/07/2018, remains in the ICU, relatively asymptomatic, denies any suicidal ideations, his hemoglobin today is 8.7, it was 12.5 on admission. Hepatitis screen has been negative And the rest of the liver enzymes are abnormal consistent with acute alcohol hepatitis. GI staff is recommending at least EGD to be done tomorrow, and that will be to reevaluate his GI blood losses. Concerned about the possibility of peptic ulcer disease or possible alcoholic gastritis/esophagitis/esophageal varices. Patient continues to have a sitter at bedside, although he denies any suicidal thoughts at this point. All labs were reviewed, his electrodes are normal renal profile is normal liver enzymes are elevated as noted above with AST of 1351 ALT of 976. On 01/08/2018 patient seen in follow-up. He is awake and alert, in no acute distress, he still has a safety investigator/cause analyst at the bedside for suicidal ideation. Is scheduled for EGD today for investigation of acute GI blood loss anemia. Patient is still having dark stools. Today's hemoglobin is 7.5, patient remains hemodynamically stable, he has not required any blood transfusions, odium is improving, up to 135 today, depressed the electrolytes are within normal limits, BUN 15 and creatinine 0.51. No leukocytosis, no fever or chills , his liver enzymes are improving. GI service is following, hepatitis panel has been negative. [place] any shortness of breath or chest pain, room air pulse ox is 98%, lung sounds are positive for diminished breath sounds, with some limited rales at the bases. Objective - Vital Signs Vital signs: Vital Signs Temp 96.8 F L 01/08/18 05:45 Pulse 95 01/08/18 05:45 Resp 16 01/08/18 08:00 BP 111/72 01/08/18 05:45 Pulse Ox 98 01/08/18 05:45 Intake & Output 01/07/18 01/08/18 01/08/18 18:59 06:59 18:59 Intake Total 1650 Output Total 500 Balance 1150 Intake: IV 1250 Sodium Chloride 0.9% 1, 1250 000 ml @ 50 mls/hr IV . Q20H [facility] Rx#:[id number] Oral 400 Output: Urine 500 Other: Voiding Method Urinal Toilet Toilet Urinal Urinal # Voids 0 0 # Bowel Movements 3 - Exam General appearance: Physical exam revealed a 57-year-old black male, in no distress. Asymptomatic at the time of my evaluation. HET: PERRLA, EOMI, atraumatic, normocephalic. Pale conjunctiva was noted. Neck: Supple, no neck masses, no JVD, no thyroid thyromegaly, no stridor.. Heart: S1 S2. Regular rate and rhythm. Lungs: Diminished breath sounds at the bases, no rhonchi and no wheezes. Symmetrical chest expansion is noted. Abdomen: Soft nontender no megaly no rebound no guarding, positive bowel sounds.. Extremities: No clubbing edema or cyanosis. Good distal pulses bilaterally. Neurological: No gross focal neurologic deficits. Psychiatric: Normal mood affect and mental status examination. Musculoskeletal: No limitations in range of motion, no deformities. Lymphatics: No lymphadenopathy. - Labs CBC & Chem 7: 01/08/18 07:24 01/08/18 07:24 Labs: Abnormal Lab Results - Last 24 Hours (Table) 01/07/18 01/08/18 01/08/18 Range/Units 22:33 07:24 07:24 RBC 2.30 L 2.38 L (4.30-5.90) m/uL Hgb 7.3 L 7.5 L (13.0-17.5) gm/dL Hct 22.3 L 23.2 L (39.0-53.0) % Plt Count 145 L (150-450) k/uL Lymphocytes # 0.9 L (1.0-4.8) k/uL Sodium 135 L (137-145) mmol/L Creatinine 0.51 L (0.66-1.25) mg/dL Calcium 7.9 L (8.4-10.2) mg/dL Phosphorus 2.1 L (2.5-4.5) mg/dL AST 633 H (17-59) U/L ALT 664 H (21-72) U/L Alkaline Phosphatase 37 L (38-126) U/L Total Protein 4.3 L (6.3-8.2) g/dL Albumin 2.2 L (3.5-5.0) g/dL Assessment and Plan Plan: Assessment: #1. Acute blood loss anemia secondary to GI bleeding, patient is having black tarry stools, and the source is likely upper GI tract #2. Hyponatremia, likely hypovolemic, improving with IV fluid fluids #3. New onset seizures, likely related to electrolyte imbalance, and EtOH withdrawal #4. Suicidal ideation #5. History of major depression #6. Acute kidney injury, resolved #7. Elevated liver enzymes, improving #9. EtOH dependence #10. Nicotine dependence, ongoing #11. Hypertension Plan: Patient is scheduled for EGD today, urinary/critical care perspective patient is hemodynamically stable, denies any shortness of breath, no chest pain. Serum sodium is improving, patient continues on IV fluids, liver enzymes are improving. No active pulmonary or critical care issues at this time, we will follow the patient on as-needed basis. I performed a history & physical examination of the patient and discussed their management with my nurse practitioner, eBcky Hudson. I reviewed the nurse practitioner's note and agree with the documented findings and plan of care. Lung sounds are positive for some limited crackles at the bases. The findings and the impression was discussed with the patient. I attest to the documentation by the nurse practitioner. Time with Patient: Less than 30
--- NOTE | 2018-01-08 12:27 | P.CN ---
Psychiatric Consult - . Consult date: 01/08/18 Consult:: 01/06/18 09:22 Depression and suicidal ideation Assessment and Plan Assessment: Patient is a 57-year-old male with a known history of hypertension and alcohol abuse initially presented to ER with complaints of nausea and vomiting all day. Patient is also complaining of abdominal pain, mainly in the epigastric region , cramping type when asked specifically. Patient says that he has vomited all day about 5-6 times today. Patient does drink alcohol on daily basis. Patient says that she drank only 1 beer today. Patient is currently homeless. Denied any complaints of chest pain. No fever no chills. Patient says that has been shaky at home. Patient denied any fall or trauma. Patient does have a history of anxiety, depression and bipolar disorder. Patient says that she has been having suicidal ideation recently. Past Medical History Past Medical History: Hypertension Additional Past Medical History / Comment(s): HX HTN-RESOLVED NOW PER PT, chronic back pain/DDD, anxiety, depression, and alcohol abuse, Sinusitis, Epistaxis, Poor balance History of Any Multi-Drug Resistant Organisms: None Reported Past Surgical History: Back Surgery, Bladder Surgery, Hernia Repair Additional Past Surgical History / Comment(s): surgery 2004 Past Anesthesia/Blood Transfusion Reactions: No Reported Reaction Past Psychological History: Anxiety, Bipolar, Depression Smoking Status: Current every day smoker Past Alcohol Use History: Abuse, Heavy Past Drug Use History: None Reported - Past Family History Father Family Medical History: Coronary Artery Disease (CAD) Additional Family Medical History / Comment(s): Bipolar, Heart problems- Open Heart Mother Family Medical History: Cancer, Coronary Artery Disease (CAD) Additional Family Medical History / Comment(s): Breast Ca-Hx.Open Heart Mental Status Examination - this is a 57-year-old male lying in hospital bed who looks severely ill who complains of depression since 1996 and chronic alcoholic. He has little to no insight about how to take care of himself.The patient presents alert, pleasant, and cooperative. There calmly seated without any agitated behavior. [he] reports that [his] mood is good. Affect is congruent and euthymic. [he] deny having any suicidal or homicidal ideation intent or plan. [he] denies any auditory or visual hallucinations. There is no evidence of any delusional thought content. [his] thought process is linear and goal-directed. [his] speech is fluent and nonpressured. [his] memory and concentration is grossly intact for the purposes of this session. Psychiatric clinical impression: This is a chronic alcohol use disorder severe in nature and major depressive disorder. Psychiatric recommendations: Detox protocol's written and discontinue one-to- one sitter for h he is not suicidal ideation (1) Alcoholism Current Visit: Yes Status: Chronic Priority: High Code(s): F10.20 - ALCOHOL DEPENDENCE, UNCOMPLICATED SNOMED Code(s): 3577789 (2) Depression Current Visit: No Status: Chronic Priority: Low Code(s): F32.9 - MAJOR DEPRESSIVE DISORDER, SINGLE EPISODE, UNSPECIFIED SNOMED Code(s): 13429407 (3) Suicidal ideation Current Visit: Yes Status: Chronic Priority: Low Code(s): R45.851 - SUICIDAL IDEATIONS SNOMED Code(s): 2843635 Plan: Continue detoxifications medical stabilization and continue with sitter is at the bedside since he is not suicidal at the current time Time with Patient: Less than 30
[2018-01-08 14:32] VITALS: BMI 17.6
[2018-01-08] MEDS: SODIUM CHLORIDE 0.9% 1,000 ML IV SCH (15:06)
--- NOTE | 2018-01-08 18:14 | P.DS ---
Providers Date of admission: 01/05/18 16:31 Expected date of discharge: 01/08/18 Attending physician: Cecilia Ritter Final Diagnoses: Acute GI bleed. With dark-colored stools and hematemesis while in the hospital. Likely upper GI. Intractable Nausea vomiting and cramping abdominal pain on admission Acute blood loss anemia Severe alcohol abuse Hypertension. Currently hypotensive on admission Chronic back pain/DDD Anxiety/depression and bipolar disorder History of epistaxis and poor balance Currently a day smoker DVT prophylaxis with SCDs Consults: 01/05/18 16:29 Consult Physician Urgent Consulting Provider: Horace Nuno Consult Reason/Comments: Suicidal ideations Do you want consulting provider notified?: Already Contacted 01/05/18 20:33 Consult Physician Urgent Consulting Provider: Reilly Mayo Consult Reason/Comments: GI bleed Do you want consulting provider notified?: Yes 01/05/18 20:34 Consult Physician Routine Consulting Provider: Yolanda Jackson Consult Reason/Comments: GI bleed Do you want consulting provider notified?: Yes Primary care physician: Stated None Hospital Course: Acute GI bleed. With dark-colored stools and hematemesis while in the hospital. Likely upper GI. Hyponatremia, hypovolemic, improving with fluids Intractable Nausea vomiting and cramping abdominal pain on admission, subsided Acute blood loss anemia Chronic Severe alcohol abuse Major depressive disorder in a patient with history of anxiety, depression, bipolar disorder Suicidal ideation; no suicidal or homicidal ideation intent or plan as per psychiatry New-onset seizures secondary to EtOH abuse, electrolyte imbalance Hypertension. hypotensive on admission Chronic back pain/DDD Ongoing nicotine dependence Hospital course:Patient is a 57-year-old male with a known history of hypertension and alcohol abuse initially presented to ER with complaints of nausea and vomiting all day. Patient is also complaining of abdominal pain, mainly in the epigastric region, cramping type when asked specifically. Patient says that he has vomited all day about 5-6 times today. Patient does drink alcohol on daily basis. Patient says that she drank only 1 beer today. Patient is currently homeless. Denied any complaints of chest pain. No fever no chills. Patient says that has been shaky at home. Patient denied any fall or trauma. Patient does have a history of anxiety, depression and bipolar disorder. Patient says that she has been having suicidal ideation recently. Denied any Susa. Hemoglobin 12.5, sodium 123 and chloride 68, bicarb is 15, BUN 59 and creatinine 1.91 AST 1112, ALT 680 UDS negative Blood pressure 97/60, heart rate 116 KUB x-ray showed nonspecific bowel gas pattern. Patient is a poor historian and unable to provide reliable history. Late in the evening today, patient did have a large dark-colored bowel movement along with hematemesis. Repeat CBC stat was ordered. Patient will be transferred to MICU for close monitoring. Evaluated by selector packer/pulmonary, GI, consult psychiatry. Patient had continue to improve, transferred out of ICU to [facility] unit. Scheduled today for EGD. Black stools have subsided, no further bleeding episodes. No further seizure episodes. Reevaluated by psychiatry, suicide precautions including sitter discontinued. case worker assisting with providing patient with homeless retirement at discharge. Patient declined EGD, refused to wait for discharge/prescriptions, went AMA. EXAM: GENERAL: Alert and oriented 3, no acute distress CV: Regular S1 and S2. LUNGS: Diminished. ABD: Soft, nontender, positive bowel sounds.Neuro no gross focal neuro deficits The impression and plan of care has been dictated as directed. Dr.: I performed a history and examination of this patient, discussed the same with the dictator. I agree with the dictator's note ,documented as a scribe. Any additional findings or plans will be noted. Time taken: 35 minutes Patient Condition at Discharge: Stable Plan - Discharge Summary New Discharge Prescriptions: New Omeprazole [PriLOSEC] 20 mg PO AC-BID #60 cap Continue cloNIDine HCL [Catapres] 0.1 mg PO BID #30 tab lamoTRIgine 150 mg PO DAILY #30 tablet DULoxetine HCL [Cymbalta] 30 mg PO TID Discharge Medication List cloNIDine HCL [Catapres] 0.1 mg PO BID #30 tab 11/24/17 [Rx] lamoTRIgine 150 mg PO DAILY #30 tablet 11/24/17 [Rx] DULoxetine HCL [Cymbalta] 30 mg PO TID 01/05/18 [History] Omeprazole [PriLOSEC] 20 mg PO AC-BID #60 cap 01/08/18 [Rx] Follow up Appointment(s)/Referral(s): Brant Lozano MD [REFERRING] - 3 Days Velocci,Awais, MD [STAFF PHYSICIAN] - 3 Days Activity/Diet/Wound Care/Special Instructions: patient left [facility] Discharge Disposition: Left Against Medical Advice
--- NOTE | 2018-01-11 17:54 | P.PN ---
Subjective Progress Note Date: 01/06/18 Progress note being dictated for Dr. Diaz. Interval history:Patient is a 57-year-old male with a known history of hypertension and alcohol abuse initially presented to ER with complaints of nausea and vomiting all day. Patient is also complaining of abdominal pain, mainly in the epigastric region, cramping type when asked specifically. Patient says that he has vomited all day about 5-6 times today. Patient does drink alcohol on daily basis. Patient says that she drank only 1 beer today. Patient is currently homeless. Denied any complaints of chest pain. No fever no chills. Patient says that has been shaky at home. Patient denied any fall or trauma. Patient does have a history of anxiety, depression and bipolar disorder. Patient says that she has been having suicidal ideation recently. Denied any Suicidal ideation. Hemoglobin 12.5, sodium 123 and chloride 68, bicarb is 15, BUN 59 and creatinine 1.91 AST 1112, ALT 680 UDS negative Blood pressure 97/60, heart rate 116 KUB x-ray showed nonspecific bowel gas pattern. Patient is a poor historian and unable to provide reliable history. Late in the evening today, patient did have a large dark-colored bowel movement along with hematemesis. Repeat CBC stat was ordered. Patient will be transferred to MICU for close monitoring. Review of Systems Constitutional: Patient denies any fever. Patient did have chills at home . Generalized weakness.. Abdomen: Patient does have nausea and vomiting and cramping abdominal pain. Cardiovascular: Patient denies any chest pain or short of breath no palpitations. Respiratory: patient denied any cough is from production. No shortness of breath Neurologic: Patient denied any numbness or tingling headache. Musculoskeletal: Patient denies any complaints of joint swelling or deformity. Skin: Negative Psychiatric: Depression and suicidal ideation Endocrine: No heat or cold intolerance. No recent weight gain. Genitourinary: No dysuria or hematuria. All other 14 point ROS negative except the above 01/06/2018 currently being monitored in ICU. Telemetry sinus rhythm to sinus tach. Lethargic with Garbled speech. Suicide precautions maintained with sitter at bedside. Frequent black tarry stools, hemoglobin 9.2. Worsening LFTs , ammonia level 12. Evaluated by GI with recommendations noted. Abdominal ultrasound pending. Evaluated by a psychiatry, recommending suicide precautions be maintained, as patient currently suicidal. Chest x-ray nonacute. Afebrile. No further seizure episodes. Objective - Vital Signs Vital signs: Vital Signs Temp 98.2 F 01/06/18 16:00 Pulse 106 H 01/06/18 19:00 Resp 14 01/06/18 19:00 BP 127/83 01/06/18 19:00 Pulse Ox 96 01/06/18 19:00 Intake & Output 01/06/18 01/06/18 01/07/18 06:59 18:59 06:59 Intake Total 3800 2100 100 Output Total 1600 651 Balance 2200 1449 100 Weight 60 kg Intake: IV 800 2100 100 Sodium Chloride 0.9% 1, 800 2100 100 000 ml @ 100 mls/hr IV . Q10H [facility] Rx#:[id number] Amount of Fluid Infused ( 3000 ml) Output: Urine 1600 650 Stool 1 Other: Voiding Method Urinal Urinal # Voids 1 1 # Bowel Movements 1 1 - Exam GENERAL: no acute distress, awake alert and oriented but lethargic with garbled speech HEENT: Normocephalic. Neck is supple. Pupils reactive. Nostrils clear. Oral cavity is moist. Neck reveals no JVD, carotid bruits, or thyromegaly. CHEST EXAMINATION: Trachea is central. Symmetrical expansion. Bibasilar diminished air entry. Lung garza clear to auscultation and percussion. CARDIAC: Normal S1, S2 with no gallops. Mild tachycardia. No murmurs ABDOMEN: Soft. Mild epigastric tenderness. Bowel sounds normal. No organomegaly. No abdominal bruits. Extremities: reveal no edema. No clubbing or cyanosis Neurologically awake, alert, oriented x3 with well-coordinated movements. Patient is lethargic. No focal deficits noted Skin: No rash or skin lesions. Psychiatric: Coperative. Could not be assessed completely. Musculoskeletal: No joint swelling or deformity. Normal range of motion. - Labs CBC & Chem 7: 01/08/18 07:24 01/08/18 07:24 Labs: Abnormal Lab Results - Last 24 Hours (Table) 01/05/18 01/05/18 01/06/18 Range/Units 20:30 20:30 04:44 WBC (3.8-10.6) k/uL RBC 3.13 L (4.30-5.90) m/uL Hgb 10.2 L (13.0-17.5) gm/dL Hct 29.8 L (39.0-53.0) % Plt Count 139 L (150-450) k/uL Neutrophils # (Manual) 8.00 H 7.90 H (1.3-7.7) k/uL Lymphocytes # (Manual) 0.47 L (1.0-4.8) k/uL Monocytes # (Manual) 1.17 H (0-1.0) k/uL Metamyelocytes # (Man) 0.12 H 0.65 H (0) k/uL Myelocytes # (Manual) 0.35 H (0) k/uL INR 1.2 H (<1.2) Sodium (137-145) mmol/L Chloride (98-107) mmol/L BUN (9-20) mg/dL Glucose (74-99) mg/dL Calcium (8.4-10.2) mg/dL Magnesium (1.6-2.3) mg/dL Delta Bilirubin (0.0-0.2) mg/dL AST (17-59) U/L ALT (21-72) U/L Alkaline Phosphatase (38-126) U/L Total Protein (6.3-8.2) g/dL Albumin (3.5-5.0) g/dL 01/06/18 01/06/18 01/06/18 Range/Units 04:44 04:44 11:17 WBC 11.9 H (3.8-10.6) k/uL RBC 2.80 L (4.30-5.90) m/uL Hgb 9.2 L (13.0-17.5) gm/dL Hct 26.8 L (39.0-53.0) % Plt Count 138 L (150-450) k/uL Neutrophils # (Manual) (1.3-7.7) k/uL Lymphocytes # (Manual) (1.0-4.8) k/uL Monocytes # (Manual) (0-1.0) k/uL Metamyelocytes # (Man) (0) k/uL Myelocytes # (Manual) (0) k/uL INR (<1.2) Sodium 124 L (137-145) mmol/L Chloride 86 L (98-107) mmol/L BUN 69 H (9-20) mg/dL Glucose 116 H (74-99) mg/dL Calcium 7.7 L (8.4-10.2) mg/dL Magnesium 2.4 H (1.6-2.3) mg/dL Delta Bilirubin 0.5 H (0.0-0.2) mg/dL AST 3385 H (17-59) U/L ALT 1451 H (21-72) U/L Alkaline Phosphatase 31 L (38-126) U/L Total Protein 4.4 L (6.3-8.2) g/dL Albumin 2.4 L (3.5-5.0) g/dL 01/06/18 Range/Units 17:53 WBC 14.5 H (3.8-10.6) k/uL RBC 2.86 L (4.30-5.90) m/uL Hgb 9.2 L (13.0-17.5) gm/dL Hct 27.9 L (39.0-53.0) % Plt Count (150-450) k/uL Neutrophils # (Manual) (1.3-7.7) k/uL Lymphocytes # (Manual) (1.0-4.8) k/uL Monocytes # (Manual) (0-1.0) k/uL Metamyelocytes # (Man) (0) k/uL Myelocytes # (Manual) (0) k/uL INR (<1.2) Sodium (137-145) mmol/L Chloride (98-107) mmol/L BUN (9-20) mg/dL Glucose (74-99) mg/dL Calcium (8.4-10.2) mg/dL Magnesium (1.6-2.3) mg/dL Delta Bilirubin (0.0-0.2) mg/dL AST (17-59) U/L ALT (21-72) U/L Alkaline Phosphatase (38-126) U/L Total Protein (6.3-8.2) g/dL Albumin (3.5-5.0) g/dL Assessment and Plan Assessment: Acute GI bleed. With dark-colored stools and hematemesis while in the hospital. Likely upper GI. Hyponatremia, hypovolemic, improving with fluids Intractable Nausea vomiting and cramping abdominal pain on admission Acute blood loss anemia Chronic Severe alcohol abuse Major depressive disorder in a patient with history of anxiety, depression, bipolar disorder Suicidal ideation, suicide precautions in place New-onset seizure secondary to EtOH abuse, electrolyte imbalance Hypertension. Currently hypotensive on admission Chronic back pain/DDD Ongoing nicotine dependence Plan: Continue on current medication regime ,monitoring and symptomatic treatment. Maintain suicide precautions, including security public safety officer at bedside. Continue on CIWA protocol, PPI twice a day. IV fluid resuscitation. Close monitoring of H&H.Abd US pending. The impression and plan of care has been dictated as directed. : I performed a history and examination of this patient, discussed the same with the dictator. I agree with the dictator's note ,documented as a scribe. Any additional findings or plans will be noted.
--- NOTE | 2018-01-11 18:28 | P.PN ---
Subjective Progress Note Date: 01/07/18 Progress note being dictated for Dr. Diaz. Interval history:Patient is a 57-year-old male with a known history of hypertension and alcohol abuse initially presented to ER with complaints of nausea and vomiting all day. Patient is also complaining of abdominal pain, mainly in the epigastric region, cramping type when asked specifically. Patient says that he has vomited all day about 5-6 times today. Patient does drink alcohol on daily basis. Patient says that she drank only 1 beer today. Patient is currently homeless. Denied any complaints of chest pain. No fever no chills. Patient says that has been shaky at home. Patient denied any fall or trauma. Patient does have a history of anxiety, depression and bipolar disorder. Patient says that she has been having suicidal ideation recently. Denied any Suicidal ideation. Hemoglobin 12.5, sodium 123 and chloride 68, bicarb is 15, BUN 59 and creatinine 1.91 AST 1112, ALT 680 UDS negative Blood pressure 97/60, heart rate 116 KUB x-ray showed nonspecific bowel gas pattern. Patient is a poor historian and unable to provide reliable history. Late in the evening today, patient did have a large dark-colored bowel movement along with hematemesis. Repeat CBC stat was ordered. Patient will be transferred to MICU for close monitoring. Review of Systems Constitutional: Patient denies any fever. Patient did have chills at home . Generalized weakness.. Abdomen: Patient does have nausea and vomiting and cramping abdominal pain. Cardiovascular: Patient denies any chest pain or short of breath no palpitations. Respiratory: patient denied any cough is from production. No shortness of breath Neurologic: Patient denied any numbness or tingling headache. Musculoskeletal: Patient denies any complaints of joint swelling or deformity. Skin: Negative Psychiatric: Depression and suicidal ideation Endocrine: No heat or cold intolerance. No recent weight gain. Genitourinary: No dysuria or hematuria. All other 14 point ROS negative except the above 01/06/2018 currently being monitored in ICU. Telemetry sinus rhythm to sinus tach. Lethargic with Garbled speech. Suicide precautions maintained with sitter at bedside. Frequent black tarry stools, hemoglobin 9.2. Worsening LFTs , ammonia level 12. Evaluated by GI with recommendations noted. Abdominal ultrasound pending. Evaluated by a psychiatry, recommending suicide precautions be maintained, as patient currently suicidal. Chest x-ray nonacute. Afebrile. No further seizure episodes. 01/07/18 currently in ICU. Chest x-ray nonacute. Abdominal ultrasound reported gallbladder hydrops with no definite cholelithiasis. Hepatitis screen nonreactive. Elevated LFTs, AST 1351, ALT 976-Acute alcohol hepatitis. Afebrile , WBC 11.5. No further bleeding today .Hemoglobin trending down, 8.7. Scheduled for EGD tomorrow. Sodium 133. Denies suicide ideation, sitter maintained as per psychiatry. Objective - Vital Signs Vital signs: Vital Signs Temp 97.4 F L 01/07/18 16:00 Pulse 87 01/07/18 16:00 Resp 18 01/07/18 16:00 BP 131/87 01/07/18 16:00 Pulse Ox 96 01/07/18 16:00 Intake & Output 01/06/18 01/07/18 01/07/18 18:59 06:59 18:59 Intake Total 2100 1200 1000 Output Total 651 475 500 Balance 1449 725 500 Weight 55.7 kg Intake: IV 2100 1200 1000 Sodium Chloride 0.9% 2099 1200 1000 000 ml @ 50 mls/hr IV . Q20H [facility] Rx#:[id number] Output: Urine 650 475 500 Stool 1 Other: Voiding Method Urinal Urinal Urinal # Voids 1 1 0 # Bowel Movements 1 1 - Exam GENERAL: no acute distress, awake, more alert and oriented 2 HEENT: Normocephalic. Neck is supple. Pupils reactive. Nostrils clear. Oral cavity is moist. Neck reveals no JVD, carotid bruits, or thyromegaly. CHEST EXAMINATION: Trachea is central. Symmetrical expansion. Bibasilar diminished air entry. Lung garza clear to auscultation and percussion. CARDIAC: Normal S1, S2 with no gallops. Mild tachycardia. No murmurs ABDOMEN: Soft. Mild epigastric tenderness. Bowel sounds normal. No organomegaly. No abdominal bruits. Extremities: reveal no edema. No clubbing or cyanosis Neurologically awake, alert, oriented x3 with well-coordinated movements. Patient is lethargic. No focal deficits noted Skin: No rash or skin lesions. Psychiatric: Coperative. Could not be assessed completely. Musculoskeletal: No joint swelling or deformity. Normal range of motion. - Labs CBC & Chem 7: 01/08/18 07:24 01/08/18 07:24 Labs: Abnormal Lab Results - Last 24 Hours (Table) 01/06/18 01/07/18 01/07/18 Range/Units 17:53 00:30 05:00 WBC 14.5 H 12.0 H 11.5 H (3.8-10.6) k/uL RBC 2.86 L 2.73 L 2.69 L (4.30-5.90) m/uL Hgb 9.2 L 8.9 L 8.7 L (13.0-17.5) gm/dL Hct 27.9 L 26.3 L 26.4 L (39.0-53.0) % Plt Count 133 L (150-450) k/uL Neutrophils # 10.3 H (1.3-7.7) k/uL Lymphocytes # 0.7 L (1.0-4.8) k/uL Sodium (137-145) mmol/L BUN (9-20) mg/dL Creatinine (0.66-1.25) mg/dL Calcium (8.4-10.2) mg/dL Phosphorus (2.5-4.5) mg/dL AST (17-59) U/L ALT (21-72) U/L Alkaline Phosphatase (38-126) U/L Total Protein (6.3-8.2) g/dL Albumin (3.5-5.0) g/dL 01/07/18 Range/Units 05:00 WBC (3.8-10.6) k/uL RBC (4.30-5.90) m/uL Hgb (13.0-17.5) gm/dL Hct (39.0-53.0) % Plt Count (150-450) k/uL Neutrophils # (1.3-7.7) k/uL Lymphocytes # (1.0-4.8) k/uL Sodium 133 L (137-145) mmol/L BUN 35 H (9-20) mg/dL Creatinine 0.55 L (0.66-1.25) mg/dL Calcium 7.7 L (8.4-10.2) mg/dL Phosphorus 2.1 L (2.5-4.5) mg/dL AST 1351 H (17-59) U/L ALT 976 H (21-72) U/L Alkaline Phosphatase 28 L (38-126) U/L Total Protein 4.2 L (6.3-8.2) g/dL Albumin 2.2 L (3.5-5.0) g/dL Assessment and Plan Assessment: Acute GI bleed. With dark-colored stools and hematemesis while in the hospital. Likely upper GI. Hyponatremia, hypovolemic, improving with fluids Intractable Nausea vomiting and cramping abdominal pain on admission Acute blood loss anemia Chronic Severe alcohol abuse Major depressive disorder in a patient with history of anxiety, depression, bipolar disorder Suicidal ideation, suicide precautions in place New-onset seizure secondary to EtOH abuse, electrolyte imbalance Hypertension. Currently hypotensive on admission Chronic back pain/DDD Ongoing nicotine dependence Plan: Continue on current medication regime ,monitoring and symptomatic treatment. Maintain suicide precautions, including occupational health and safety adviser at bedside. Continue on CIWA protocol, PPI twice a day. EGD scheduled for tomorrow. Possible transfer to [facility] today. Close monitoring of H&H. The impression and plan of care has been dictated as directed. : I performed a history and examination of this patient, discussed the same with the dictator. I agree with the dictator's note ,documented as a scribe. Any additional findings or plans will be noted.
== END 2018-01-08 15:58 | disposition left against medical advice (07) | DRG 378 ==
LOC: EC 13:16 → 3NMEDONC 16:31 → 3SCARD 18:22 → 2SICU 21:29 → 4MS4W 01-07 21:54
PROVIDERS: ADMIT Internal Medicine; ATTEND Internal Medicine
DX: K92.0 Hematemesis (principal); F10.239 Alcohol dependence with withdrawal, unspecified; E87.1 Hypo-osmolality and hyponatremia; N17.9 Acute kidney failure, unspecified; D62 Acute posthemorrhagic anemia; D68.9 Coagulation defect, unspecified; E87.2 Acidosis; R45.851 Suicidal ideations; K82.1 Hydrops of gallbladder; I10 Essential (primary) hypertension; F41.9 Anxiety disorder, unspecified; K70.10 Alcoholic hepatitis without ascites; E86.1 Hypovolemia; I95.9 Hypotension, unspecified; F31.9 Bipolar disorder, unspecified; R56.9 Unspecified convulsions; F17.200 Nicotine dependence, unspecified, uncomplicated; D69.6 Thrombocytopenia, unspecified; R74.8 Abnormal levels of other serum enzymes; Z82.49 Family history of ischemic heart disease and other diseases of the circulatory system; Z79.899 Other long term (current) drug therapy; Z59.0 Homelessness; Z80.3 Family history of malignant neoplasm of breast
CPT/HCPCS: 36415; 71045; 74018; 76705; 80048; 80053; 80074; 80076; 80306; 81001; 82140; 82150; 82272; 83690; 83735; 84100; 85025; 85027; 85610; 85730; 86850; 86900; 86901; 96365; 96366; 96372; 96374; 96375; 96376; 99285

== ENCOUNTER 2019-06-18 11:33 | Inpatient (IN) | payer OTHER ==
[2019-06-18] MEDS ORDERED: LORazepam 2 MG/ML INJ IV STA (11:47)
[2019-06-18] MEDS ORDERED: OCTREOTIDE 100 MCG/ML INJ IVP STA (11:57)
--- NOTE | 2019-06-18 11:57 | ED ---
General Adult HPI - General Stated complaint: GI Bleed Time Seen by Provider: 06/18/19 11:37 Source: patient, EMS Mode of arrival: EMS Limitations: no limitations - History of Present Illness Initial comments: Dictation was produced using [employer] dictation software. please excuse any grammatical, word or spelling errors. This patient was cared for during a federal and state declared state of emergency secondary to Covid 19 Chief Complaint: 58-year-old male sent in from [facility] for GI bleeding. History of Present Illness: She is a 58-year-old male who has past medical history hypertension, anxiety and chronic alcoholism. Patient's been having GI bleed since today. Patient was initially evaluated at [facility] emergency room. According to EMS who reported to them patient had episode of bright red hematemesis that measured approximately 1 pint. Patient was initially evaluated at the emergency room. He is found to have stable labs. He did have tachycardia. Patient was given Protonix and intravenous fluids he was transferred to our emergency department. She states since being transferred from that hospital he's been feeling decent. He did have episodes of coffee- ground emesis measuring approximately one can. The ROS documented in this emergency department record has been reviewed and confirmed by me. Those systems with pertinent positive or negative responses have been documented in the HPI. All other systems are other negative and/or noncontributory. PHYSICAL EXAM: General Impression: Alert and oriented x3, not in acute distress HEENT: Normocephalic atraumatic, extra-ocular movements intact, pupils equal and reactive to light bilaterally, mucous membranes moist. Cardiovascular: Tachycardic Chest: Able to complete full sentences, no retractions, no tachypnea Abdomen: Bowel sounds present, abdomen soft, non-tender, non-distended, no organomegaly Musculoskeletal: Pulses present and equal in all extremities, no peripheral edema Motor: no focal deficits noted Neurological: CN II-XII grossly intact, no focal motor or sensory deficits noted Skin: Intact with no visualized rashes Psych: Anxious ED course: 58 yo Male sent in for upper GI bleed. According to history patient had pretty copious amounts of hematemesis. Transfer documentation was reviewed. Metabolic panel was grossly unremarkable. Patient's hemoglobin was 12.9. He had normal coags. INR of 0.94, troponin 0.014. Patient also had computed tomography scan of the head CT of the C-spine and CT of the chest. No PEs noted. There was however findings of infiltrates. Patient appears slightly anxious. He is given anxiolytics. Considering his history, there is concern that patient lost significant amount of blood. There is strong clinical suspicion of suffered G of bleeding giving his history of chronic alcoholism.Vital signs upon arrival shows heart rate of 135, rest of vital signs within acceptable limits. Discussed patient case with Dr. Jackson is willing to accept patients care to the intensive care unit. GI will be consulted. Discussed patient case with Dr. Mendoza who is willing to accept patients care. Patient started on octreotide infusion. Here he had received Protonix prior to transfer. Patient will be admitted. EKG interpretation: Ventricular rate 137, sinus tachycardia,. 142, QRS 84, QTC 431. No FL prolongation, no QTC prolongation, no ST or T-wave changes noted. Overall, this EKG is unremarkable - Related Data Home Medications Medication Instructions Recorded Confirmed DULoxetine HCL [Cymbalta] 30 mg PO TID 01/05/18 01/15/18 Previous Rx's Medication Instructions Recorded cloNIDine HCL [Catapres] 0.1 mg PO BID #30 tab 11/24/17 lamoTRIgine 150 mg PO DAILY #30 tablet 11/24/17 Acetaminophen Tab [Tylenol] 650 mg PO Q6HR PRN tab 01/20/18 Cephalexin [Keflex] 500 mg PO Q8HR #30 cap 01/20/18 Pantoprazole Sodium [Protonix] 40 mg PO BID #60 tablet. 01/20/18 Sucralfate [Carafate] 1 gm PO AC-TID #90 tab 01/20/18 Thiamine [Vitamin B-1] 100 mg PO DAILY #30 tab 01/20/18 Allergies Allergy/AdvReac Type Severity Reaction Status Date / Time No Known Allergies Allergy Verified 01/15/18 11:28 Review of Systems ROS Statement: Those systems with pertinent positive or pertinent negative responses have been documented in the HPI. ROS Other: All systems not noted in ROS Statement are negative. Past Medical History Past Medical History: COPD, Hyperlipidemia, Hypertension Additional Past Medical History / Comment(s): Pt recently admitted on 01/05/18 with acute GI bleed, had dark stool and hematemesis-likely upper GI, acute blood loss anemia. Other hx: Alcoholism, alcohol withdrawal with seizure, chronic back pain/DDD, bilateral feet numb/tingling/pain, poor balance, sinusitis, epistaxis History of Any Multi-Drug Resistant Organisms: None Reported Past Surgical History: Back Surgery, Bladder Surgery, Hernia Repair Additional Past Surgical History / Comment(s): Back surgery 2005-L4, dilatation of ureter, L inguinal hernia, colonoscopy-normal Past Anesthesia/Blood Transfusion Reactions: No Reported Reaction Additional Past Anesthesia/Blood Transfusion Reaction / Comment(s): Pt has received blood in past without reaction. Past Psychological History: Anxiety, Bipolar, Depression Smoking Status: Current every day smoker Past Alcohol Use History: Abuse, Heavy Past Drug Use History: None Reported - Past Family History Father Family Medical History: Coronary Artery Disease (CAD) Additional Family Medical History / Comment(s): Bipolar, heart problems - open heart surgery. Mother Family Medical History: Cancer, Coronary Artery Disease (CAD) Additional Family Medical History / Comment(s): History of breast cancer, open heart surgery. General Exam Limitations: no limitations Course Vital Signs 06/18/19 11:47 Temperature 99 F Pulse Rate 135 H Respiratory 16 Rate Blood Pressure 126/74 O2 Sat by Pulse 97 Oximetry Disposition Clinical Impression: GI bleed Disposition: ADMITTED IP TO THIS HOSP Condition: Critical Referrals: Vitor Lomas MD [Primary Care Provider] - 1-2 days Decision Time: 12:01
[2019-06-18] MEDS ORDERED: NALOXONE 0.4 MG/ML 1 ML VIAL IV PRN (11:58)
[2019-06-18 12:00] LABS: HCT 37.8 % (39.0-53.0); HGB 12.2 gm/dL (13.0-17.5); MCH 31.4 pg (25.0-35.0); MCHC 32.4 g/dL (31.0-37.0); Mean Platelet Volume 8.5; Platelet Count 132 k/uL (150-450); RDW 15.9 % (11.5-15.5); WBC 9.4 k/uL (3.8-10.6)
[2019-06-18 12:14] LABS: Partial Thromboplastin Time 22.9 sec (22.0-30.0)
[2019-06-18] MEDS ORDERED: SODIUM CHLORIDE 0.9% 500 ML 500 ML IV ONE (12:15)
[2019-06-18] MEDS: PANTOPRAZOLE 40 MG/10 ML VIAL IV SCH ×2 (12:27→20:36)
[2019-06-18] MEDS: SODIUM CHLORIDE 0.9% 1,000 ML IV SCH ×2 (12:29→23:58)
[2019-06-18] MEDS: OCTREOTIDE 500 MCG in SODIUM CHLORIDE 0.9% 250 ML IV SCH (12:31)
[2019-06-18] MEDS ORDERED: LORazepam 2 MG/ML INJ IV PRN ×2 (12:50)
[2019-06-18] MEDS ORDERED: THIAMINE 100 MG/ML 2 ML VIAL IM STA (12:50)
--- NOTE | 2019-06-18 14:14 | P.HPIM ---
History of Present Illness H&P Date: 06/18/19 Chief Complaint: Vomiting blood History of presenting complaint: This is 58-year-old patient who follows with Dr. Lomas. Chronic stable medical conditions include anxiety, depression, hypertension, COPD, peripheral neuropathy, chronic alcoholism. Patient had a prior EGD in 2017 that showed gastritis and severe erosive esophagitis. [place] to be all from alcoholism. Patient now presents with about to vomiting blood. Significant amount Initially presents to [facility]. Where he was transferred down here. Patient admitted to the ICU. Tachycardic. A bit anxious. Slight upper abdominal discomfort. GI was consulted. Review of systems: GEN.: Tired EYES: None HEENT: None NECK: None RESPIRATORY: Occasional wheezing CARDIOVASCULAR: None GASTROINTESTINAL: As above GENITOURINARY: None MUSCULOSKELETAL: Chronic low back pain LYMPHATICS: None HEMATOLOGICAL: None PSYCHIATRY: Anxiety depression, controlled NEUROLOGICAL: Numbness tingling in hand and feet Past medical history to include: Anxiety, hypertension, depression, COPD, alcohol-related seizures, peripheral neuropathy, gastritis, severe esophagitis, chronic low back pain Social history: Smokes 14 cigarettes a day. More so in the past. Lives with his niece. Has been drinking for several years currently drinking 4 cans of 12 hours.. Not working. Physical examination: VITAL SIGNS: 99, 135, 16, 126/74, 97% GENERAL: BMI 22.6, laying in bed suddenly anxious and disheveled. Spider nevi EYES: Pupils equal. Conjunctiva normal. HEENT: External appearance of nose and ears normal, oral cavity grossly normal. NECK: JVD not raised; masses not palpable. HEART: First and second heart sounds are normal; no edema. LUNGS: Respiratory rate increased, decreased breath sound. ABDOMEN: Soft, minimal epigastric tenderness, liver spleen not palpable, no masses palpable. PSYCH: [Alert and oriented x3; mood and affect anxious l. NEUROLOGICAL: Cranial nerves grossly intact; no facial asymmetry, power and sensation grossly intact, minimal tremor. LYMPHATICS: No lymph nodes palpable in the axilla and neck INVESTIGATIONS, reviewed in the clinical context: White count 9.4 hemoglobin 12.2 Assessment: -Acute upper GI bleed manifesting as hematemesis, and the patient long-standing alcoholic, with a prior EGD in 2079 showing gastritis and severe esophagitis. Additionally peptic ulcer disease and/or varices possible -Acute blood loss anemia from GI bleed -Anxiety disorder not otherwise specified -Major depression currently in remission -Essential hypertension -COPD in a current smoker -Peripheral neuropathy from chronic alcohol use of -History of alcohol related seizures -Gastritis esophagitis -alcohol withdrawal syndrome with anxiety tachycardia, mild tremor Plan: Patient admitted to the ICU. GI was consulted. Will need a EGD. We'll put the patient on Valium 5 mg 3 times a day scheduled and a CIWA scale. Patient is also on IV Protonix IV fluids. Add thiamine. Resume all dose of Cymbalta. Also had nicotine patch. Past Medical History Past Medical History: COPD, Hyperlipidemia, Hypertension Additional Past Medical History / Comment(s): Pt recently admitted on 01/05/18 with acute GI bleed, had dark stool and hematemesis-likely upper GI, acute blood loss anemia. Other hx: Alcoholism, alcohol withdrawal with seizure, chronic back pain/DDD, bilateral feet numb/tingling/pain, poor balance, sinusi tis, epistaxis History of Any Multi-Drug Resistant Organisms: None Reported Past Surgical History: Back Surgery, Bladder Surgery, Hernia Repair Additional Past Surgical History / Comment(s): Back surgery 2005-L4, dilatation of ureter, L inguinal hernia, colonoscopy-normal Past Anesthesia/Blood Transfusion Reactions: No Reported Reaction Additional Past Anesthesia/Blood Transfusion Reaction / Comment(s): Pt has received blood in past without reaction. Past Psychological History: Anxiety, Bipolar, Depression Smoking Status: Current every day smoker Past Alcohol Use History: Abuse, Heavy Past Drug Use History: None Reported - Past Family History Father Family Medical History: Coronary Artery Disease (CAD) Additional Family Medical History / Comment(s): Bipolar, heart problems - open heart surgery. Mother Family Medical History: Cancer, Coronary Artery Disease (CAD) Additional Family Medical History / Comment(s): History of breast cancer, open heart surgery. Medications and Allergies Home Medications Medication Instructions Recorded Confirmed Type lamoTRIgine 150 mg PO DAILY #30 tablet 11/24/17 06/18/19 Rx DULoxetine HCL [Cymbalta] 30 mg PO TID 01/05/18 06/18/19 History Pantoprazole Sodium [Protonix] 40 mg PO BID #60 tablet. 01/20/18 06/18/19 Rx amLODIPine [Norvasc] 10 mg PO DAILY 06/18/19 06/18/19 History clonazePAM [KlonoPIN] 1 mg PO TID 06/18/19 06/18/19 History Allergies Allergy/AdvReac Type Severity Reaction Status Date / Time No Known Allergies Allergy Verified 06/18/19 12:17 Physical Exam Vitals: Vital Signs Temp Pulse Resp BP Pulse Ox 06/18/19 13:15 134 H 13 91/73 95 06/18/19 12:39 118 H 18 95/63 98 06/18/19 12:11 142 H 18 96/80 98 06/18/19 11:47 99 F 135 H 16 126/74 97 Intake and Output 06/17/19 06/18/19 06/18/19 22:59 06:59 14:59 Other: Weight 69.4 kg Results CBC & Chem 7: 06/18/19 11:45 Labs: Abnormal Lab Results - Last 24 Hours (Table) 06/18/19 06/18/19 Range/Units 11:45 11:45 RBC 3.90 L (4.30-5.90) m/uL Hgb 12.2 L (13.0-17.5) gm/dL Hct 37.8 L (39.0-53.0) % RDW 15.9 H (11.5-15.5) % Plt Count 132 L (150-450) k/uL Plasma Lactic Acid Cristi 6.4 H* (0.7-2.0) mmol/L
--- NOTE | 2019-06-18 14:23 | P.CNPUL ---
History of Present Illness Consult date: 06/18/19 Reason for consult: other (upper GI bleeding) Chief complaint: vomiting blood History of present illness: this is a 58-year-old white male with history of alcohol abuse, patient drinks on the average 20 beers per week, patient is also known to have history of hypertension, generalized anxiety disorder, bipolar disorder, chronic alcoholism, presented with 2 days history of vomiting blood. Patient was seen initially at [facility], and according to EMS he had multiple bouts of bright red emesis on his way down to [facility]. Patient denies taking any nonsteroidal anti-inflammatory medications, denies any prior history of GI bleeding although, back in January of 2018, patient was admitted with similar symptoms of hematemesis and dark stools. previous EGD showed gastritis and severe erosive esophagitis. Patient was transferred to [facility] from [facility], and his symptoms of upper GI bleeding subsided, but when I saw the patient he had 1 episode of coffee-ground emesis. GI has been consulted. Patient is a bit anxious, and he will be placed on the alcohol withdrawal protocol. Patient has not received any blood transfusions in our facility so far. Review of Systems constitutional: Negative HEENT: Negative. Pulmonary: Negative GI: As noted in HPI. Cardiac: Negative Genitourinary: Negative Musculoskeletal: Negative except for chronic low back pain. Skin: Negative Hematologic: No clotting bleeding or bruising, except previous history and present history of upper GI bleeding. Psychiatric: History of bipolar disorder and depression. Endocrine: Denies any heat or cold intolerance. lymphatics: Negative Neurologic: Denies any headache blurred vision or dizziness. Past Medical History Past Medical History: COPD, Hyperlipidemia, Hypertension Additional Past Medical History / Comment(s): Pt recently admitted on 01/05/18 with acute GI bleed, had dark stool and hematemesis-likely upper GI, acute blood loss anemia. Other hx: Alcoholism, alcohol withdrawal with seizure, chronic back pain/DDD, bilateral feet numb/tingling/pain, poor balance, sinusitis, epistaxis History of Any Multi-Drug Resistant Organisms: None Reported Past Surgical History: Back Surgery, Bladder Surgery, Hernia Repair Additional Past Surgical History / Comment(s): Back surgery 2005-L4, dilatation of ureter, L inguinal hernia, colonoscopy-normal Past Anesthesia/Blood Transfusion Reactions: No Reported Reaction Additional Past Anesthesia/Blood Transfusion Reaction / Comment(s): Pt has received blood in past without reaction. Past Psychological History: Anxiety, Bipolar, Depression Smoking Status: Current every day smoker Past Alcohol Use History: Abuse, Heavy Past Drug Use History: None Reported - Past Family History Father Family Medical History: Coronary Artery Disease (CAD) Additional Family Medical History / Comment(s): Bipolar, heart problems - open heart surgery. Mother Family Medical History: Cancer, Coronary Artery Disease (CAD) Additional Family Medical History / Comment(s): History of breast cancer, open heart surgery. Medications and Allergies Home Medications Medication Instructions Recorded Confirmed Type lamoTRIgine 150 mg PO DAILY #30 tablet 11/24/17 06/18/19 Rx DULoxetine HCL [Cymbalta] 30 mg PO TID 01/05/18 06/18/19 History Pantoprazole Sodium [Protonix] 40 mg PO BID #60 tablet. 01/20/18 06/18/19 Rx amLODIPine [Norvasc] 10 mg PO DAILY 06/18/19 06/18/19 History clonazePAM [KlonoPIN] 1 mg PO TID 06/18/19 06/18/19 History Allergies Allergy/AdvReac Type Severity Reaction Status Date / Time No Known Allergies Allergy Verified 06/18/19 12:17 Physical Exam Vitals: Vital Signs Temp Pulse Resp BP Pulse Ox 06/18/19 13:15 134 H 13 91/73 95 06/18/19 12:39 118 H 18 95/63 98 06/18/19 12:11 142 H 18 96/80 98 06/18/19 11:47 99 F 135 H 16 126/74 97 Intake and Output 06/17/19 06/18/19 06/18/19 22:59 06:59 14:59 Other: Weight 69.4 kg Physical Exam: Revealed 58-year-old white male, slightly anxious, in no distress. Head: Atraumatic normocephalic. HEENT:[Neck is supple.] [No neck masses.] [No thyromegaly.] [No JVD.] Chest: [Clear throughout, no crackles, no rhonchi, no wheezes.] Cardiac Exam: [Normal S1 and S2, no S3 gallop, no murmur.] Abdomen: [Soft, nontender, no megaly, no rebound, no guarding, normal bowel sounds.] Extremities: [No clubbing, no edema, no cyanosis.] Neurological Exam: [No focal neurologic deficit.]alert oriented 3. skin: No rashes. Psychiatric: Normal mood affect and normal mental status examination. Lymphatics: No lymphadenopathy. Results - Laboratory Findings CBC and BMP: 06/18/19 11:45 PT/INR, D-dimer PT 10.0 sec (9.0-12.0) 06/18/19 11:45 INR 1.0 (<1.2) 06/18/19 11:45 Abnormal lab findings: Abnormal Labs 06/18/19 04 11:45 11:45 RBC 3.90 L Hgb 12.2 L Hct 37.8 L RDW 15.9 H Plt Count 132 L Plasma Lactic Acid Cristi 6.4 H* Assessment and Plan Assessment: impression: Acute upper GI bleeding, differential diagnoses includes erosive gastritis, esophagitis, gastric ulcer disease, and possible esophageal varices. Acute blood loss anemia secondary to GI bleeding History of generalized anxiety disorder History of bipolar disorder Benign essential hypertension COPD, presently in active and the patient is a current smoker History of gastritis and esophagitis based on previous EGD in 2018. Recommendation: Continue to monitor in the ICU. Start patient on Protonix. Start patient on the CIWA protocol. Monitor serial hemoglobin and hematocrit. Consult gastroenterology. Resume home meds, avoid nonsteroidal anti-inflammatory drugs. Nicotine patch. Counseled regarding alcohol and smoking cessation. We'll continue to follow. Time with Patient: Greater than 30
[2019-06-18] MEDS: THIAMINE 100 MG TAB PO SCH (17:31)
[2019-06-18] MEDS: DIAZEPAM 5 MG TAB PO SCH ×2 (17:31→22:23)
[2019-06-18] MEDS: lamoTRIgine 100 MG TAB PO SCH (17:31)
[2019-06-18] MEDS: DULoxetine HCL 30 MG CAPSULE.DR PO SCH ×2 (17:32→22:23)
[2019-06-18 17:57] LABS: Glucose,Whole Blood 107 mg/dL (75-99)
[2019-06-18 18:25] LABS: HCT 32.2 % (39.0-53.0); HGB 10.3 gm/dL (13.0-17.5); MCH 31.5 pg (25.0-35.0); MCHC 32.1 g/dL (31.0-37.0); MCV 98.3 fL (80.0-100.0); Macrocytosis Slight; Mean Platelet Volume 8.6; Platelet Count 125 k/uL (150-450); RBC 3.27 m/uL (4.30-5.90); RDW 15.8 % (11.5-15.5); WBC 7.1 k/uL (3.8-10.6)
[2019-06-18 19:18] LABS: ALT 94 U/L (4-49); AST 84 U/L (17-59); African American GFR (CKD) >90 (>60 ml/min/1.73 sqM); Albumin 3.8 g/dL (3.5-5.0); Alkaline Phosphatase 36 U/L (38-126); Anion Gap 18 mmol/L; Blood Urea Nitrogen 29 mg/dL (9-20); Calcium 8.5 mg/dL (8.4-10.2); Carbon Dioxide 19 mmol/L (22-30); Chloride 101 mmol/L (98-107); Glucose 94 mg/dL (74-99); Non-African American GFR(CKD) >90 (>60 ml/min/1.73 sqM); Potassium 3.8 mmol/L (3.5-5.1); Sodium 138 mmol/L (137-145); Total Bilirubin 0.7 mg/dL (0.2-1.3); Total Protein 6.3 g/dL (6.3-8.2)
--- NOTE | 2019-06-18 20:33 | P.CONS ---
History of Present Illness - Reason for Consult Consult date: 06/18/19 Hematemesis Requesting physician: Byron Mendoza - Chief Complaint Vomiting blood - History of Present Illness 58-year-old male with multiple medical comorbidities including anxiety, depression, hypertension, COPD, alcoholism who presented to outside hospital with complaints of vomiting blood. The patient reports nausea and vomiting productive of bright red blood as well as episodes of coffee-ground emesis. He reports this has been present for the past few days. He denies any associated abdominal pain. He does have a history of alcoholism reporting that he is been drinking alcohol for approximately 40 years. Currently reporting for years daily. The patient previously presented with similar complaints in 01/2018 and was taken for EGD significant for erosive esophagitis and gastritis. Laboratory evaluation on presentation significant for total bilirubin 0.7, alkaline phosphatase 36, AST 84, ALTs 94, INR 1, lactic acid 6.4 and then 4.8 on repeat blood drawl, hemoglobin 12.2 and then 10.3 on repeat blood draw with platelet count 125,000. Review of Systems REVIEW OF SYSTEMS: CONSTITUTIONAL: Denies any fevers, chills, weight change or fatigue. CARDIOVASCULAR: Denies any chest pain, palpitations high or low blood pressures RESPIRATORY: Denies any shortness of breath, hemoptysis or cough. GENITOURINARY: No dysuria or hematuria. MUSCULOSKELETAL: No weakness reported. SKIN: Denies any new rashes or lesions, jaundice or pallor. PSYCHIATRIC: Denies any depression or anxiety. NEUROLOGY: Denies headache, denies any new focal deficits. EARS/NOSE/THROAT: No recent hearing change, congestion, nasal discharge or sore throat. EYES: No pain in eyes, discharge or change in vision. GASTROINTESTINAL: As per HPI. Past Medical History Past Medical History: COPD, Hyperlipidemia, Hypertension Additional Past Medical History / Comment(s): Pt recently admitted on 01/05/18 with acute GI bleed, had dark stool and hematemesis-likely upper GI, acute blood loss anemia. Other hx: Alcoholism, alcohol withdrawal with seizure, chronic back pain/DDD, bilateral feet numb/tingling/pain, poor balance, sinusitis, epistaxis History of Any Multi-Drug Resistant Organisms: None Reported Past Surgical History: Back Surgery, Bladder Surgery, Hernia Repair Additional Past Surgical History / Comment(s): Back surgery 2005-L4, dilatation of ureter, L inguinal hernia, colonoscopy-normal Past Anesthesia/Blood Transfusion Reactions: No Reported Reaction Additional Past Anesthesia/Blood Transfusion Reaction / Comm: Pt has received blood in past without reaction. Past Psychological History: Anxiety, Bipolar, Depression Smoking Status: Current every day smoker Past Alcohol Use History: Abuse, Heavy Past Drug Use History: None Reported - Past Family History Father Family Medical History: Coronary Artery Disease (CAD) Additional Family Medical History / Comment(s): Bipolar, heart problems - open heart surgery. Mother Family Medical History: Cancer, Coronary Artery Disease (CAD) Additional Family Medical History / Comment(s): History of breast cancer, open heart surgery. Medications and Allergies Home Medications Medication Instructions Recorded Confirmed Type lamoTRIgine 150 mg PO DAILY #30 tablet 11/24/17 06/18/19 Rx DULoxetine HCL [Cymbalta] 30 mg PO TID 01/05/18 06/18/19 History Pantoprazole Sodium [Protonix] 40 mg PO BID #60 tablet. 01/20/18 06/18/19 Rx amLODIPine [Norvasc] 10 mg PO DAILY 06/18/19 06/18/19 History clonazePAM [KlonoPIN] 1 mg PO TID 06/18/19 06/18/19 History Allergies Allergy/AdvReac Type Severity Reaction Status Date / Time No Known Allergies Allergy Verified 06/18/19 12:17 Physical Exam Vitals: Vital Signs Temp Pulse Resp BP Pulse Ox 06/18/19 12:39 118 H 18 95/63 98 06/18/19 12:11 142 H 18 96/80 98 06/18/19 11:47 99 F 135 H 16 126/74 97 Intake and Output 06/17/19 06/18/19 06/18/19 22:59 06:59 14:59 Other: Weight 69.4 kg On physical examination, patient appears comfortable in no apparent distress. HEAD: Normocephalic, atraumatic. EYES: No scleral icterus. No conjunctival injection. MOUTH: No lesions, tongue midline. NECK: Trachea midline, no gross abnormalities. CHEST: Decreased air entry in all lung garza. HEART: Regular rate and rhythm. ABDOMEN: Soft, nontender to palpation. Bowel sounds are positive. No organomegaly. No guarding or rigidity. EXTREMITIES: No pedal edema. SKIN: No rashes, no jaundice. NEUROLOGIC: Alert and oriented with tremulousness noted. No focal deficits. Results CBC & Chem 7: 06/18/19 18:07 06/18/19 11:45 Labs: Abnormal Lab Results - Last 24 Hours (Table) 06/18/19 Range/Units 11:45 RBC 3.90 L (4.30-5.90) m/uL Hgb 12.2 L (13.0-17.5) gm/dL Hct 37.8 L (39.0-53.0) % RDW 15.9 H (11.5-15.5) % Plt Count 132 L (150-450) k/uL Assessment and Plan (1) GI bleed Narrative/Plan: 58-year-old female with multiple medical comorbidities including alcohol abuse who presents to the hospital with complaints of vomiting of bright red blood and coffee-ground emesis. Similar presentation in 2018 with findings of erosive esophagitis gastritis. No varices noted at that time. Unclear if secondary to peptic ulcer disease, esophagitis, gastritis, variceal bleed, or other etiology. Current Visit: Yes Status: Acute Code(s): K92.2 - GASTROINTESTINAL HEMORRHAGE, UNSPECIFIED SNOMED Code(s): 79677866 (2) Acute blood loss anemia Current Visit: No Status: Acute Code(s): D62 - ACUTE POSTHEMORRHAGIC ANEMIA SNOMED Code(s): 209540348 Plan: Supportive care Continue IV PPI CBC every 6 hours Continue to monitor for signs or symptoms of GI bleed Plan for EGD for further evaluation tomorrow morning Nothing by mouth except for ice chips Further recommendations pending findings of EGD Alcohol abstinence Will monitor for signs or symptoms of alcohol withdrawal Thank you for allowing us to participate in the care of the patient
[2019-06-18] MEDS: LORazepam 2 MG/ML INJ IV PRN ×2 (20:36→23:56)
[2019-06-19 00:48] LABS: HCT 28.8 % (39.0-53.0); HGB 9.3 gm/dL (13.0-17.5); MCH 31.4 pg (25.0-35.0); MCHC 32.4 g/dL (31.0-37.0); MCV 96.9 fL (80.0-100.0); Mean Platelet Volume 8.4; Platelet Count 121 k/uL (150-450); RBC 2.97 m/uL (4.30-5.90); RDW 15.9 % (11.5-15.5); WBC 6.7 k/uL (3.8-10.6)
[2019-06-19 05:24] LABS: HCT 28.7 % (39.0-53.0); HGB 9.4 gm/dL (13.0-17.5); MCHC 32.9 g/dL (31.0-37.0); MCV 97.2 fL (80.0-100.0); Mean Platelet Volume 8.3; Platelet Count 125 k/uL (150-450); RBC 2.95 m/uL (4.30-5.90); RDW 15.7 % (11.5-15.5)
[2019-06-19 05:33] LABS: African American GFR (CKD) >90 (>60 ml/min/1.73 sqM); Anion Gap 4 mmol/L; Blood Urea Nitrogen 19 mg/dL (9-20); Calcium 7.6 mg/dL (8.4-10.2); Carbon Dioxide 29 mmol/L (22-30); Chloride 103 mmol/L (98-107); Glucose 123 mg/dL (74-99); Non-African American GFR(CKD) >90 (>60 ml/min/1.73 sqM); Potassium 3.9 mmol/L (3.5-5.1); Sodium 136 mmol/L (137-145)
[2019-06-19] MEDS: PANTOPRAZOLE 40 MG/10 ML VIAL IV SCH ×2 (08:24→21:44)
[2019-06-19] MEDS: OCTREOTIDE 500 MCG in SODIUM CHLORIDE 0.9% 250 ML IV SCH (08:24)
[2019-06-19] MEDS ORDERED: PROPOFOL 10 MG/ML 20 ML VIAL IV ONE (08:41)
[2019-06-19] MEDS ORDERED: LIDOCAINE 1% INJ 10MG/ML (20 ML MDV) ONE (08:41)
[2019-06-19] MEDS ORDERED: IV FLUID CONTINUATION 200 ML IV ONE (08:42)
--- NOTE | 2019-06-19 09:03 | P.PCN ---
Date of Procedure: 06/19/19 Description of Procedure: BRIEF HISTORY: 58-year-old male with multiple medical comorbidities including anxiety, depression, hypertension, COPD, alcoholism who presented to outside hospital with complaints of vomiting blood. The patient reports nausea and vomiting productive of bright red blood as well as episodes of coffee-ground emesis. He reports this has been present for the past few days. He denies any associated abdominal pain. He does have a history of alcoholism reporting that he is been drinking alcohol for approximately 40 years. Currently reporting for years daily. The patient previously presented with similar complaints in 01/2018 and was taken for EGD significant for erosive esophagitis and gastritis. PROCEDURE PERFORMED: Esophagogastroduodenoscopy. PREOPERATIVE DIAGNOSIS: Hematemesis, coffee-ground emesis, anemia of acute blood loss. ESTIMATED BLOOD LOSS: Minimal. IV sedation per anesthesia. PROCEDURE: After informed consent was obtained, the patient was brought into the endoscopy unit. IV sedation was administered by Anesthesia under continuous monitoring. Initially the Olympus GIF-190 video endoscope was inserted into the mouth. Esophagus intubated without any difficulty. It was gradually advanced into the stomach and duodenum and carefully examined. The bulb and the second part of the duodenum appeared normal. The scope at this time was withdrawn to the stomach, adequately insufflated with air, and upon careful examination, mucosa of the antrum, body, cardia and the fundus appeared normal, except for some mild scattered erythema in the antrum and body suggestive of mild gastritis. The scope was then withdrawn into the esophagus. The GE junction was located at 40 cm from the incisors, with a 3 cm hiatal hernia noted. Distal 10 cm of the esophagus was significant for LA grade D erosive esophagitis. The patient tolerated the procedure. IMPRESSION: 1. LA grade D erosive esophagitis. 2. Mild gastritis antrum and body. 3. Moderate size hiatal hernia. RECOMMENDATIONS: The findings of this examination were discussed with the patient. Okay for full liquid diet, advance as tolerated. Continue Protonix 40 mg twice daily. Okay to discontinue octreotide drip. Will add sucralfate 4 times a day before meals at bedtime. Alcohol abstinence. Monitor hemoglobin and hematocrit. No plan for further endoscopic evaluation..
[2019-06-19] MEDS: DIAZEPAM 5 MG TAB PO SCH (10:26)
[2019-06-19] MEDS: DULoxetine HCL 30 MG CAPSULE.DR PO SCH ×3 (10:27→21:45)
[2019-06-19] MEDS: lamoTRIgine 100 MG TAB PO SCH (10:27)
[2019-06-19] MEDS: THIAMINE 100 MG TAB PO SCH ×2 (10:28→17:15)
[2019-06-19] MEDS: SODIUM CHLORIDE 0.9% 1,000 ML IV SCH ×2 (10:35→21:45)
--- NOTE | 2019-06-19 12:51 | P.PN ---
Subjective Progress Note Date: 06/19/19 Principal diagnosis: Coffee-ground emesis this is a 58-year-old white male with history of alcohol abuse, patient drinks on the average 20 beers per week, patient is also known to have history of hypertension, generalized anxiety disorder, bipolar disorder, chronic alcoholism, presented with 2 days history of vomiting blood. Patient was seen initially at [facility], and according to EMS he had multiple bouts of bright red emesis on his way down to [facility]. Patient denies taking any nonsteroidal anti-inflammatory medications, denies any prior history of GI bleeding although, back in January of 2018, patient was admitted with similar symptoms of hematemesis and dark stools. previous EGD showed gastritis and severe erosive esophagitis. Patient was transferred to [facility] from [facility], and his symptoms of upper GI bleeding subsided, but when I saw the patient he had 1 episode of coffee-ground emesis. GI has been consulted. Patient is a bit anxious, and he will be placed on the alcohol withdrawal protocol. Patient has not received any blood transfusions in our facility so far. The patient was seen today 06/19/2019 in follow-up in the intensive care unit. He is awake and alert in no acute distress. No further coffee-ground emesis. No active bleeding noted. He did undergo EGD this morning and was found to have elevated grade D erosive esophagitis, mild gastritis in the antrum and body, moderate sized hiatal hernia. No active bleeding. He is continued on Protonix 40 mg twice a day. Octreotide drip was discontinued. Diet will be advanced. He denies any shortness of breath, cough or congestion. No chest pain or palpitations. He is maintaining O2 saturations in the upper 90s on room air. He's been afebrile. Hemodynamically stable. White count 7.0. Hemoglobin 9.4. Platelets 125. Creatinine 0.50. He remains on the CIWA protocol. Objective - Vital Signs Vital signs: Vital Signs Temp 98.5 F 06/19/19 11:51 Pulse 71 06/19/19 11:51 Resp 17 06/19/19 11:51 BP 126/77 06/19/19 11:51 Pulse Ox 98 06/19/19 11:51 Intake & Output 06/18/19 06/19/19 06/19/19 18:59 06:59 18:59 Intake Total 540 1127.5 606.042 Output Total 800 650 900 Balance -260 477.5 -293.958 Weight 69.4 kg 69.5 kg Intake: IV 540 1127.5 357.5 Octreotide 500 mcg In 137.5 37.5 Sodium Chloride 0.9% 250 ml @ 25 MCG/HR 12.5 mls/ hr IV .Q20H [facility] Rx#: [id number] Sodium Chloride 0.9% 1, 540 990 270 000 ml @ 90 mls/hr IV . Q11H7M [facility] Rx#:[id number] Intake, IV Titration 248.542 Amount Octreotide 500 mcg In 248.542 Sodium Chloride 0.9% 250 ml @ 25 MCG/HR 12.5 mls/ hr IV .Q20H [facility] Rx#: [id number] Oral 0 Output: Urine 800 0 900 Stool 650 Other: Voiding Method Bedside Commode Bedside Commode Urinal Urinal # Voids 1 1 # Bowel Movements 1 1 - Exam GENERAL EXAM: Alert, 58-year-old gentleman, on room air, comfortable in no apparent distress. HEAD: Normocephalic. EYES: Normal reaction of pupils, equal size. NOSE: Clear with pink turbinates. THROAT: Poor dentition. No erythema or exudates. NECK: No masses, no JVD. CHEST: No chest wall deformity. LUNGS: Equal air entry with no crackles, wheeze, rhonchi or dullness. CVS: S1 and S2 normal with no audible murmur, regular rhythm. ABDOMEN: No hepatosplenomegaly, normal bowel sounds, no guarding or rigidity. SPINE: No scoliosis or deformity SKIN: No rashes CENTRAL NERVOUS SYSTEM: No focal deficits, tone is normal in all 4 extremities. EXTREMITIES: There is no peripheral edema. No clubbing, no cyanosis. Peripheral pulses are intact. - Labs CBC & Chem 7: 06/19/19 05:06 06/19/19 05:06 Labs: Abnormal Lab Results - Last 24 Hours (Table) 06/18/19 06/18/19 06/18/19 Range/Units 11:45 11:45 16:16 RBC (4.30-5.90) m/uL Hgb (13.0-17.5) gm/dL Hct (39.0-53.0) % RDW (11.5-15.5) % Plt Count (150-450) k/uL Sodium (137-145) mmol/L Carbon Dioxide 19 L (22-30) mmol/L BUN 29 H (9-20) mg/dL Creatinine (0.66-1.25) mg/dL Glucose (74-99) mg/dL POC Glucose (mg/dL) (75-99) mg/dL Plasma Lactic Acid Cristi 6.4 H* 4.8 H* (0.7-2.0) mmol/L Calcium (8.4-10.2) mg/dL AST 84 H (17-59) U/L ALT 94 H (4-49) U/L Alkaline Phosphatase 36 L (38-126) U/L 06/18/19 06/18/19 06/18/19 Range/Units 17:36 18:07 20:00 RBC 3.27 L (4.30-5.90) m/uL Hgb 10.3 L (13.0-17.5) gm/dL Hct 32.2 L (39.0-53.0) % RDW 15.8 H (11.5-15.5) % Plt Count 125 L (150-450) k/uL Sodium (137-145) mmol/L Carbon Dioxide (22-30) mmol/L BUN (9-20) mg/dL Creatinine (0.66-1.25) mg/dL Glucose (74-99) mg/dL POC Glucose (mg/dL) 107 H (75-99) mg/dL Plasma Lactic Acid Cristi 2.2 H* (0.7-2.0) mmol/L Calcium (8.4-10.2) mg/dL AST (17-59) U/L ALT (4-49) U/L Alkaline Phosphatase (38-126) U/L 06/18/19 06/19/19 06/19/19 Range/Units 23:41 05:06 05:06 RBC 2.97 L 2.95 L (4.30-5.90) m/uL Hgb 9.3 L 9.4 L (13.0-17.5) gm/dL Hct 28.8 L 28.7 L (39.0-53.0) % RDW 15.9 H 15.7 H (11.5-15.5) % Plt Count 121 L 125 L (150-450) k/uL Sodium 136 L (137-145) mmol/L Carbon Dioxide (22-30) mmol/L BUN (9-20) mg/dL Creatinine 0.50 L (0.66-1.25) mg/dL Glucose 123 H (74-99) mg/dL POC Glucose (mg/dL) (75-99) mg/dL Plasma Lactic Acid Cristi (0.7-2.0) mmol/L Calcium 7.6 L (8.4-10.2) mg/dL AST (17-59) U/L ALT (4-49) U/L Alkaline Phosphatase (38-126) U/L Assessment and Plan Assessment: Acute upper GI bleeding, differential diagnoses includes erosive gastritis, esophagitis, gastric ulcer disease, and possible esophageal varices. The patient did undergo EGD this morning 06/19/2019 was found to have a elevated grade D erosive esophagitis with no active bleeding. There is mild gastritis. Moderate hiatal hernia. Acute blood loss anemia secondary to GI bleeding, stable did not require any blood transfusions this admission. Currently hemoglobin of 9.4. History of alcoholism with previous alcoholic seizures. Currently on the CIWA protocol History of generalized anxiety disorder History of bipolar disorder Benign essential hypertension COPD, presently in active and the patient is a current smoker History of gastritis and esophagitis based on previous EGD in 2018. Plan: The patient was seen and evaluated by Dr. Jackson Currently stable from the pulmonary and critical care standpoint Transfer out to the general medical floor Home once cleared by medicine I, the cosigning physician, performed a history & physical examination of the patient. Lungs sounds are clear. Maintaining good O2 saturations in the 90s on room air. I discussed the assessment and plan of care with my nurse practitioner, Shira Harris. I attest to the above note as dictated by her.
[2019-06-19] MEDS: SUCRALFATE 1 GM TAB PO SCH ×3 (14:18→21:44)
--- NOTE | 2019-06-19 16:52 | P.PN ---
Progress Note - Text Progress Note Date: 06/19/19 Chief Complaint: Vomiting blood History of presenting complaint: This is 58-year-old patient who follows with Dr. Lomas. Chronic stable medical conditions include anxiety, depression, hypertension, COPD, peripheral neuropathy, chronic alcoholism. Patient had a prior EGD in 2018 that showed gastritis and severe erosive esophagitis. [place] to be all from alcoholism. Patient now presents with about to vomiting blood. Significant amount Initially presents to [facility]. Where he was transferred down here. Patient admitted to the ICU. Tachycardic. A bit anxious. Slight upper abdominal discomfort. GI was consulted. Today-underwent EGD. Found to have-mild gastritis, grade D erosive esophagitis, moderate-sized hiatal hernia. Multiple ICU. Octreotide drip was discontinued. Review of systems: Was done for constitutional, cardiovascular, GI, pulmonary. relevant finding as above Active Medications Diazepam (Valium) 2 mg PO TID [facility] Duloxetine HCl (Cymbalta) 30 mg PO TID [facility] Last Admin: 06/19/19 10:27 Dose: 30 mg Documented by: Sodium Chloride (Saline 0.9%) 1,000 mls @ 90 mls/hr IV .Q11H7M [facility] Last Admin: 06/19/19 10:35 Dose: 90 mls/hr Documented by: Lamotrigine (Lamictal) 150 mg PO DAILY [facility] Last Admin: 06/19/19 10:27 Dose: 150 mg Documented by: Lorazepam (Ativan) 1 mg IV Q2HR PRN PRN Reason: CIWA 8 or 9 Last Admin: 06/18/19 23:56 Dose: 1 mg Documented by: Lorazepam (Ativan) 1 mg IV Q1HR PRN PRN Reason: CIWA 10 to 15 Lorazepam (Ativan) 2 mg IV Q10M PRN PRN Reason: CIWA 16 or higher Stop: 06/20/19 12:50 Naloxone HCl (Narcan) 0.2 mg IV Q2M PRN PRN Reason: Opioid Reversal Pantoprazole Sodium (Protonix) 40 mg IV BID [facility] Last Admin: 06/19/19 08:24 Dose: 40 mg Documented by: Sucralfate (Carafate) 1 gm PO ACHS [facility] Last Admin: 06/19/19 14:18 Dose: Not Given Documented by: Thiamine HCl (Vitamin B-1) 100 mg PO BID-W/MEALS [facility] Last Admin: 06/19/19 10:28 Dose: 100 mg Documented by: Physical examination: VITAL SIGNS: 98.5, 71, 17, 126/77, 98% on room air GENERAL: BMI 22.6, laying in bed, tired. Spider nevi EYES: Pupils equal. Conjunctiva normal. HEENT: External appearance of nose and ears normal, oral cavity grossly normal. NECK: JVD not raised; masses not palpable. HEART: First and second heart sounds are normal; no edema. LUNGS: Respiratory rate increased, decreased breath sound. ABDOMEN: Soft, minimal epigastric tenderness, liver spleen not palpable, no masses palpable. PSYCH: [Alert and oriented x3; mood and affect anxious l. NEUROLOGICAL: No tremors INVESTIGATIONS, reviewed in the clinical context: White count 7 hemoglobin 9.4 Previous testing White count 9.4 hemoglobin 12.2 Assessment: -Acute upper GI bleed manifesting as hematemesis, and the patient long-standing alcoholic,-grade D esophagitis and gastritis -Acute blood loss anemia from GI bleed -Anxiety disorder not otherwise specified -Major depression currently in remission -Essential hypertension -COPD in a current smoker -Peripheral neuropathy from chronic alcohol use of -History of alcohol related seizures -Gastritis esophagitis -alcohol withdrawal syndrome with anxiety tachycardia, mild tremor -Lactic acidosis type II. No sepsis Plan: Decreased dose of Valium to 2 mg 3 times a day. Patient oriented PPI. Start on clear liquids and advance diet as tolerated. Repeat CBC in the morning. Hopefully home tomorrow.
[2019-06-19] MEDS: DIAZEPAM 2 MG TAB PO SCH ×2 (17:15→21:44)
[2019-06-19] MEDS: LORazepam 2 MG/ML INJ IV PRN (20:32)
[2019-06-19 20:37] LABS: Glucose,Whole Blood 97 mg/dL (75-99)
[2019-06-20 05:58] LABS: HCT 29.6 % (39.0-53.0); HGB 9.5 gm/dL (13.0-17.5); MCH 31.5 pg (25.0-35.0); MCHC 32.2 g/dL (31.0-37.0); MCV 98.1 fL (80.0-100.0); Macrocytosis Slight; Mean Platelet Volume 8.7; Platelet Count 152 k/uL (150-450); RBC 3.02 m/uL (4.30-5.90); RDW 15.3 % (11.5-15.5); WBC 4.6 k/uL (3.8-10.6)
[2019-06-20 06:45] LABS: Glucose,Whole Blood 93 mg/dL (75-99)
[2019-06-20] MEDS: SODIUM CHLORIDE 0.9% 1,000 ML IV SCH (08:23)
[2019-06-20] MEDS: DULoxetine HCL 30 MG CAPSULE.DR PO SCH ×3 (08:25→22:57)
[2019-06-20] MEDS: SUCRALFATE 1 GM TAB PO SCH (08:25)
[2019-06-20] MEDS: lamoTRIgine 100 MG TAB PO SCH (08:25)
[2019-06-20] MEDS: DIAZEPAM 2 MG TAB PO SCH (08:25)
[2019-06-20] MEDS: THIAMINE 100 MG TAB PO SCH ×2 (08:25→16:58)
[2019-06-20] MEDS: PANTOPRAZOLE 40 MG/10 ML VIAL IV SCH (08:26)
--- NOTE | 2019-06-20 10:13 | PN ---
PROGRESS NOTE DATE OF DICTATION: 06/20/2019 The patient is a 58-year-old pleasant white male admitted to the hospital 2 days ago when he presented with multiple episodes of coffee-ground emesis. He underwent an upper endoscopy by Dr. Rowe yesterday which showed severe LA grade D reflux esophagitis. The patient remains on Protonix 40 mg q.12 hours. He complains of some abdominal discomfort, nausea but no emesis. He was able to eat soft diet this morning without any complaints. Denies any melena. PHYSICAL EXAMINATION: On physical examination, he appears comfortable. VITAL SIGNS: Blood pressure 102/65, pulse is 103, temperature 98.4. HEENT examination unremarkable. Conjunctivae pink. Sclerae anicteric. Oral cavity, no lesions. NECK: No JVD or lymph node enlargement. CHEST: Clear to auscultation. HEART: Regular rate and rhythm. ABDOMEN: Mild tenderness in the epigastric area. Rest of the abdomen is benign. Bowel sounds are positive. No organomegaly. EXTREMITIES: No pedal edema. SKIN: No rashes. NEURO: Alert and oriented x3. No focal deficits. LABS: Labs from today WBC is 4.6, hemoglobin 9.5, platelets normal. Basic metabolic panel is within normal limits. IMPRESSION: 1. Acute upper gastrointestinal bleed, status post EGD yesterday that showed severe LA grade D reflux esophagitis, presently on Protonix 40 mg q.12 hours. No further episodes of bleeding. 2. Persistent nausea. 3. Anemia with a hemoglobin of 9.5 secondary to acute blood loss, which is stable. 4. History of heavy alcohol abuse. RECOMMENDATIONS: 1. Continue with Protonix 40 mg q.12 hours. 2. Monitor CBC on a daily basis. 3. Abstinence from alcohol. 4. Repeat labs in the morning and he can be discharged home in 1 to 2 days. Thank you for this consultation. MMODL / IJN: [id number] /
[2019-06-20 11:26] VITALS: RESP 18
[2019-06-20 11:36] LABS: Glucose,Whole Blood 92 mg/dL (75-99)
--- NOTE | 2019-06-20 12:34 | P.PN ---
Subjective Progress Note Date: 06/20/19 On today's evaluation of 06/20/2019 the patient is also the intensive care unit. The patient has history of alcohol abuse. His doing well for now. He is hemodynamically stable. His hypertension and chronic anxiety and bipolar disorder and chronic alcoholism. He was in the hospital because of GI bleed. He denied taking any form of nonsteroidal anti-inflammatory medication. The patient underwent an EGD yesterday and the patient was found to have grade B erosive gastritis and mild gastritis of the antrum and the body. He also had a moderate-sized hiatal hernia. No active bleeding has been noted. Today's tolerating regular diet. Hemoglobin is at 9.5. No signs of any delirium tremens. He is on Ativan as needed. He is also Klonopin 1 mg 3 times a day. He is taking Cymbalta 30 mg 3 times a day. No signs of any hepatic encephalopathy. He is on oral Protonix. Objective - Vital Signs Vital signs: Vital Signs Temp 97.8 F 06/20/19 11:14 Pulse 87 06/20/19 11:14 Resp 18 06/20/19 11:14 BP 131/84 06/20/19 11:14 Pulse Ox 99 06/20/19 11:14 Intake & Output 06/19/19 06/20/19 06/20/19 18:59 06:59 18:59 Intake Total 952.828 6953 Output Total 1950 550 400 Balance -1023.958 530 -400 Intake: IV 357.5 1080 Octreotide 500 mcg In 37.5 Sodium Chloride 0.9% 250 ml @ 25 MCG/HR 12.5 mls/ hr IV .Q20H [facility] Rx#: [id number] Sodium Chloride 0.9% 1, 270 1080 000 ml @ 90 mls/hr IV . Q11H7M [facility] Rx#:[id number] Intake, IV Titration 248.542 Amount Octreotide 500 mcg In 248.542 Sodium Chloride 0.9% 250 ml @ 25 MCG/HR 12.5 mls/ hr IV .Q20H [facility] Rx#: [id number] Oral 320 Output: Urine 1300 550 400 Stool 650 Other: Voiding Method Bedside Commode Bedside Commode Bedside Commode Urinal Urinal Urinal # Voids 2 1 - Exam GENERAL EXAM: Alert, 58-year-old gentleman, on room air, comfortable in no apparent distress. HEAD: Normocephalic. EYES: Normal reaction of pupils, equal size. NOSE: Clear with pink turbinates. THROAT: Poor dentition. No erythema or exudates. NECK: No masses, no JVD. CHEST: No chest wall deformity. LUNGS: Equal air entry with no crackles, wheeze, rhonchi or dullness. CVS: S1 and S2 normal with no audible murmur, regular rhythm. ABDOMEN: No hepatosplenomegaly, normal bowel sounds, no guarding or rigidity. SPINE: No scoliosis or deformity SKIN: No rashes CENTRAL NERVOUS SYSTEM: No focal deficits, tone is normal in all 4 extremities. EXTREMITIES: There is no peripheral edema. No clubbing, no cyanosis. Peripheral pulses are intact. - Labs CBC & Chem 7: 06/20/19 05:31 06/19/19 05:06 Labs: Abnormal Lab Results - Last 24 Hours (Table) 06/20/19 Range/Units 05:31 RBC 3.02 L (4.30-5.90) m/uL Hgb 9.5 L (13.0-17.5) gm/dL Hct 29.6 L (39.0-53.0) % Assessment and Plan Plan: Acute upper GI bleeding, differential diagnoses includes erosive gastritis, esophagitis, gastric ulcer disease, and possible esophageal varices. The patient did undergo EGD this morning 06/19/2019 was found to have a elevated grade D erosive esophagitis with no active bleeding. There is mild gastritis. Moderate hiatal hernia. Acute blood loss anemia secondary to GI bleeding, stable did not require any blood transfusions this admission. Currently hemoglobin of 9.4. History of alcoholism with previous alcoholic seizures. Currently on the CIWA protocol History of generalized anxiety disorder History of bipolar disorder Benign essential hypertension COPD, presently in active and the patient is a current smoker History of gastritis and esophagitis based on previous EGD in 2018. Plan No signs of any active bleeding. The patient's hemoglobin is stable. The patient has evidence of erosive gastritis and is at the joint space without signs of any active bleeding. EGD was completed. He is tolerating a regular diet for now. He is on oral Protonix. Hemoglobin is at 9.5. No signs of any delirium tremens. We'll see him as needed.
[2019-06-20] MEDS: PANTOPRAZOLE 40 MG TABLET PO SCH (16:58)
[2019-06-20] MEDS: clonazePAM 1 MG TAB PO SCH ×2 (16:58→22:57)
[2019-06-20 17:11] LABS: Glucose,Whole Blood 94 mg/dL (75-99)
[2019-06-20 20:17] LABS: Glucose,Whole Blood 91 mg/dL (75-99)
--- NOTE | 2019-06-20 21:23 | P.PN ---
Progress Note - Text Progress Note Date: 06/20/19 Chief Complaint: Vomiting blood History of presenting complaint: This is 58-year-old patient who follows with Dr. Lomas. Chronic stable medical conditions include anxiety, depression, hypertension, COPD, peripheral neuropathy, chronic alcoholism. Patient had a prior EGD in 2018 that showed gastritis and severe erosive esophagitis. [place] to be all from alcoholism. Patient now presents with about to vomiting blood. Significant amount Initially presents to [facility]. Where he was transferred down here. Patient admitted to the ICU. Tachycardic. A bit anxious. Slight upper abdominal discomfort. GI was consulted. - octreotide drip. EGD-Found to have-mild gastritis, grade D erosive esophagitis, moderate-sized hiatal hernia. Today-. No bloody stools. Feeling a bit better. Eating small amounts. manager [employer] informed of the niece will not be able to take care of the patient. Looking for inpatient rehab Review of systems: Was done for constitutional, cardiovascular, GI, pulmonary. relevant finding as above Active Medications Clonazepam (Klonopin) 1 mg PO TID [facility] Last Admin: 06/20/19 16:58 Dose: 1 mg Documented by: Duloxetine HCl (Cymbalta) 30 mg PO TID [facility] Last Admin: 06/20/19 16:58 Dose: 30 mg Documented by: Lamotrigine (Lamictal) 150 mg PO DAILY [facility] Last Admin: 06/20/19 08:25 Dose: 150 mg Documented by: Lorazepam (Ativan) 1 mg IV Q2HR PRN PRN Reason: CIWA 8 or 9 Last Admin: 06/19/19 20:32 Dose: 1 mg Documented by: Lorazepam (Ativan) 1 mg IV Q1HR PRN PRN Reason: CIWA 10 to 15 Naloxone HCl (Narcan) 0.2 mg IV Q2M PRN PRN Reason: Opioid Reversal Pantoprazole Sodium (Protonix) 40 mg PO AC-BID [facility] Last Admin: 06/20/19 16:58 Dose: 40 mg Documented by: Thiamine HCl (Vitamin B-1) 100 mg PO BID-W/MEALS [facility] Last Admin: 06/20/19 16:58 Dose: 100 mg Documented by: Physical examination: VITAL SIGNS: 97.8, 87, 18, 131/84, 99% on 2 L GENERAL: , laying in bed, tired. Spider nevi EYES: Pupils equal. Conjunctiva normal. HEENT: External appearance of nose and ears normal, oral cavity grossly normal. NECK: JVD not raised; masses not palpable. HEART: First and second heart sounds are normal; no edema. LUNGS: Respiratory rate increased, decreased breath sound. ABDOMEN: Soft, minimal epigastric tenderness, liver spleen not palpable, no masses palpable. PSYCH: Alert and oriented x3; mood and affect anxious NEUROLOGICAL: No tremors INVESTIGATIONS, reviewed in the clinical context: Hemoglobin 9.5 Previous testing White count 9.4 hemoglobin 12.2 Assessment: -Acute upper GI bleed manifesting as hematemesis, and the patient long-standing alcoholic,-grade D esophagitis and gastritis -Acute blood loss anemia from GI bleed -Anxiety disorder not otherwise specified -Major depression currently in remission -Essential hypertension -COPD in a current smoker -Peripheral neuropathy from chronic alcohol use of -History of alcohol related seizures -Gastritis esophagitis -alcohol withdrawal syndrome with anxiety tachycardia, mild tremor-improved -Lactic acidosis type II. No sepsis Plan: We will DC Valium. Resume patient's home dose of Klonopin. Discussed with outpatient case manager. Looking at inpatient rehab.
[2019-06-21 04:58] VITALS: BP 120/81; PULSE 70; TEMP 98.4
[2019-06-21 07:02] LABS: Glucose,Whole Blood 99 mg/dL (75-99)
[2019-06-21] MEDS: lamoTRIgine 100 MG TAB PO SCH (08:42)
[2019-06-21] MEDS: clonazePAM 1 MG TAB PO SCH (08:42)
[2019-06-21] MEDS: DULoxetine HCL 30 MG CAPSULE.DR PO SCH (08:43)
[2019-06-21] MEDS: PANTOPRAZOLE 40 MG TABLET PO SCH (08:44)
[2019-06-21] MEDS: THIAMINE 100 MG TAB PO SCH (08:44)
[2019-06-21 09:11] LABS: Basophils % (A) 0 %; Eosinophils # (A) 0.1 k/uL (0-0.7); Eosinophils % (A) 2 %; HCT 32.4 % (39.0-53.0); HGB 10.5 gm/dL (13.0-17.5); Lymphocytes # (A) 1.2 k/uL (1.0-4.8); Lymphocytes % (A) 28 %; MCH 31.8 pg (25.0-35.0); MCHC 32.5 g/dL (31.0-37.0); MCV 97.8 fL (80.0-100.0); Mean Platelet Volume 7.9; Monocytes # (A) 0.3 k/uL (0-1.0); Monocytes % (A) 8 %; Neutrophils # (A) 2.6 k/uL (1.3-7.7); Neutrophils % (A) 58 %; Platelet Count 234 k/uL (150-450); RBC 3.31 m/uL (4.30-5.90); RDW 15.4 % (11.5-15.5); WBC 4.4 k/uL (3.8-10.6)
[2019-06-21 11:46] LABS: Glucose,Whole Blood 107 mg/dL (75-99)
--- NOTE | 2019-06-21 11:50 | P.PN ---
Subjective Progress Note Date: 06/21/19 Principal diagnosis: Coffee-ground emesis On today's evaluation of 06/20/2019 the patient is also the intensive care unit. The patient has history of alcohol abuse. His doing well for now. He is hemodynamically stable. His hypertension and chronic anxiety and bipolar disorder and chronic alcoholism. He was in the hospital because of GI bleed. He denied taking any form of nonsteroidal anti-inflammatory medication. The patient underwent an EGD yesterday and the patient was found to have grade B erosive gastritis and mild gastritis of the antrum and the body. He also had a moderate-sized hiatal hernia. No active bleeding has been noted. Today's tolerating regular diet. Hemoglobin is at 9.5. No signs of any delirium tremens. He is on Ativan as needed. He is also Klonopin 1 mg 3 times a day. He is taking Cymbalta 30 mg 3 times a day. No signs of any hepatic encephalopathy. He is on oral Protonix. On 06/21/2019 patient seen in follow-up general medical floor, he is awake and alert, oriented 3, in no acute distress, no signs of delirium tremens, patient is calm and cooperative, he denies any chest pain, or shortness of breath, no active bleeding. Today's labs reveal hemoglobin of 10.5, platelet count of 234, normal white count. Hemodynamically patient remains stable. On room air, lung sounds are clear, patient is afebrile, no acute events overnight. Remains on PPI therapy, he is on Klonopin 1 mg 3 times a day, continues on serial protocol. Mentation is awake and alert, and 3, and patient is anticipated to be discharged home today. Objective - Vital Signs Vital signs: Vital Signs Temp 98.4 F 06/21/19 04:57 Pulse 70 06/21/19 04:57 Resp 18 06/21/19 04:57 BP 120/81 06/21/19 04:57 Pulse Ox 98 06/21/19 04:57 Intake & Output 06/20/19 06/21/19 06/21/19 18:59 06:59 18:59 Intake Total 1400 720 Output Total 1000 1000 Balance 400 -280 Intake: IV 900 360 Sodium Chloride 0.9% 1, 900 360 000 ml @ 90 mls/hr IV . Q11H7M [facility] Rx#:[id number] Oral 500 360 Output: Urine 1000 1000 Other: Voiding Method Bedside Commode Bedside Commode Bedside Commode Urinal Urinal Urinal - Exam GENERAL EXAM: Alert, very pleasant, 58-year-old white male, on room air comfortable in no apparent distress. HEAD: Normocephalic/atraumatic. EYES: Normal reaction of pupils, equal size. Conjunctiva pink, sclera white. NOSE: Clear with pink turbinates. THROAT: No erythema or exudates. NECK: No masses, no JVD, no thyroid enlargement, no adenopathy. CHEST: No chest wall deformity. Symmetrical expansion. LUNGS: Equal air entry with no crackles, wheeze, rhonchi or dullness. CVS: Regular rate and rhythm, normal S1 and S2, no gallops, no murmurs, no rubs ABDOMEN: Soft, nontender. No hepatosplenomegaly, normal bowel sounds, no guarding or rigidity. EXTREMITIES: No clubbing, no edema, no cyanosis, 2+ pulses and upper and lower extremities. MUSCULOSKELETAL: Muscle strength and tone normal. SPINE: No scoliosis or deformity SKIN: No rashes CENTRAL NERVOUS SYSTEM: Alert and oriented -3. No focal deficits, tone is normal in all 4 extremities. PSYCHIATRIC: Alert and oriented -3. Appropriate affect. Intact judgment and insight. - Labs CBC & Chem 7: 06/21/19 08:40 06/19/19 05:06 Labs: Abnormal Lab Results - Last 24 Hours (Table) 06/21/19 Range/Units 08:40 RBC 3.31 L (4.30-5.90) m/uL Hgb 10.5 L (13.0-17.5) gm/dL Hct 32.4 L (39.0-53.0) % Assessment and Plan Plan: Assessment: Acute upper GI bleeding, differential diagnoses includes erosive gastritis, esophagitis, gastric ulcer disease, and possible esophageal varices. The patient did undergo EGD this morning 06/19/2019 was found to have a elevated grade D erosive esophagitis with no active bleeding. There is mild gastritis. Moderate hiatal hernia. Acute blood loss anemia secondary to GI bleeding, stable did not require any blood transfusions this admission. Currently hemoglobin of 10.4. History of alcoholism with previous alcoholic seizures. Currently on the [employer] protocol History of generalized anxiety disorder History of bipolar disorder Benign essential hypertension COPD, presently in active and the patient is a current smoker History of gastritis and esophagitis based on previous EGD in 2018. Plan: Patient is doing well, no signs of acute DVTs, no signs of hepatic encephalopathy, vital signs are stable, today's hemoglobin is 10.4, no active bleeding, remains on PPI therapy, doing well, anticipate discharge home today I performed a history & physical examination of the patient and discussed their management with my nurse practitioner, Becky Hudson. I reviewed the nurse practitioner's note and agree with the documented findings and plan of care. Lung sounds are positive for diminished breath sounds. The findings and the imp ression was discussed with the patient. I attest to the documentation by the nurse practitioner. Time with Patient: Less than 30
--- NOTE | 2019-06-21 17:02 | PN ---
PROGRESS NOTE DATE OF DICTATION: 06/21/2019 This patient is a 58-year-old pleasant white male who was admitted to the hospital with acute upper GI bleed. He had an EGD done by Dr. Rowe 3 days ago that showed severe reflux esophagitis. He is on Protonix 40 mg twice daily and doing much better. He is being discharged home today. He denies any abdominal pain. No further episodes of nausea or vomiting. On a regular diet, tolerating well. PHYSICAL EXAMINATION: He appears comfortable. No apparent distress. Vital signs are stable. Blood pressure 133/86, pulse rate 84 per minute and afebrile. HEENT examination unremarkable. Conjunctivae pink. Sclerae anicteric. Oral cavity no lesions. NECK: No JVD or lymph node enlargement. CHEST: Clear to auscultation. HEART: Regular rate and rhythm. ABDOMEN: Soft. Bowel sounds are positive. No organomegaly. EXTREMITIES: No pedal edema. SKIN: No rashes. NEUROLOGIC: Alert and oriented x3. No focal deficits. LABS: CBC was not done today. IMPRESSION: 1. Acute upper gastrointestinal bleed, status post esophagogastroduodenoscopy that showed severe LA grade D reflux esophagitis. Presently on Protonix 40 mg twice daily. Doing well. 2. Heavy alcohol abuse. RECOMMENDATIONS: 1. Continue with Protonix 40 mg twice daily. 2. Anti-reflux measures. 3. Diet modification. 4. He can be discharged home with outpatient followup with Dr. Rowe in 2 weeks. Thank you for this consultation. MMODL / IJN: [id number] /
--- NOTE | 2019-06-21 21:07 | P.DS ---
Providers Date of admission: 06/18/19 11:58 Expected date of discharge: 06/21/19 Attending physician: Byron Mendoza Consults: 06/18/19 11:58 Consult Physician Routine Consulting Provider: Awais Rowe Consult Reason/Comments: GI bleed Do you want consulting provider notified?: Yes Consult Physician Stat Consulting Provider: Yolanda Jackson Consult Reason/Comments: GI bleed, icu patient Do you want consulting provider notified?: Already Contacted Primary care physician: Vitor Abebe [facility] Course: Chief Complaint: Vomiting blood History of presenting complaint: This is 58-year-old patient who follows with Dr. Lomas. Chronic stable medical conditions include anxiety, depression, hypertension, COPD, peripheral neuropathy, chronic alcoholism. Patient had a prior EGD in 2018 that showed gastritis and severe erosive esophagitis. Coward to be all from alcoholism. Patient now presents with about to vomiting blood. Significant amount Initially presents to [facility]. Where he was transferred down here. Patient admitted to the ICU. Tachycardic. A bit anxious. Slight upper abdominal discomfort. GI was consulted. - octreotide drip. EGD-Found to have-mild gastritis, grade D erosive esophagitis, moderate-sized hiatal hernia. Also treated for out called withdrawal syndrome. Today-. Discussed with older adult social work specialist. Patient's ambulating much better. To be discharged home. B12 was added. digital analytics manager involved. Discussion and discharge planning more than 35 minutes Consultation: Dr. Bree Ventura from GI Dr. Funes-drilling field specialist Physical examination: VITAL SIGNS: 98.4, 70, 18, 120/81, 98% on room air GENERAL: , Sitting up in a chair-comfortable. Spider nevi EYES: Pupils equal. Conjunctiva normal. HEENT: External appearance of nose and ears normal, oral cavity grossly normal. NECK: JVD not raised; masses not palpable. HEART: First and second heart sounds are normal; no edema. LUNGS: Respiratory rate increased, decreased breath sound. ABDOMEN: Soft, minimal epigastric tenderness, liver spleen not palpable, no masses palpable. PSYCH: Alert and oriented x3; mood and affect anxious NEUROLOGICAL: No tremors INVESTIGATIONS, reviewed in the clinical context: Hemoglobin 10.5 Previous testing White count 9.4 hemoglobin 12.2 Assessment: -Acute upper GI bleed manifesting as hematemesis, and the patient long-standing alcoholic,-grade D esophagitis and gastritis, POA -Acute blood loss anemia from GI bleed, POA -Anxiety disorder not otherwise specified -Major depression currently in remission -Essential hypertension -COPD in a current smoker -Peripheral neuropathy from chronic alcohol use of -History of alcohol related seizures -Gastritis esophagitis -alcohol withdrawal syndrome with anxiety tachycardia, mild tremor-improved -Lactic acidosis type II. No sepsis Disposition: Home Patient Condition at Discharge: Stable Plan - Discharge Summary New Discharge Prescriptions: New Thiamine [Vitamin B-1] 100 mg PO DAILY #30 tab Cyanocobalamin [Vitamin B-12] 500 mcg PO DAILY #30 tablet Continue lamoTRIgine 150 mg PO DAILY #30 tablet DULoxetine HCL [Cymbalta] 30 mg PO TID Pantoprazole Sodium [Protonix] 40 mg PO BID #60 tablet. clonazePAM [KlonoPIN] 1 mg PO TID Discontinued amLODIPine [Norvasc] 10 mg PO DAILY Discharge Medication List lamoTRIgine 150 mg PO DAILY #30 tablet 11/24/17 [Rx] DULoxetine HCL [Cymbalta] 30 mg PO TID 01/05/18 [History] Pantoprazole Sodium [Protonix] 40 mg PO BID #60 tablet. 01/20/18 [Rx] clonazePAM [KlonoPIN] 1 mg PO TID 06/18/19 [History] Cyanocobalamin [Vitamin B-12] 500 mcg PO DAILY #30 tablet 06/21/19 [Rx] Thiamine [Vitamin B-1] 100 mg PO DAILY #30 tab 06/21/19 [Rx] Follow up Appointment(s)/Referral(s): Vitor Lomas MD [Primary Care Provider] - 06/27/19 10:00 am Awais Rowe MD [STAFF PHYSICIAN] - 07/18/19 3:00 pm Patient Instructions/Handouts: Thiamine (By mouth), Cyanocobalamin (By injection), Alcohol Intoxication (DC) Activity/Diet/Wound Care/Special Instructions: Activity as tolerated Discharge Disposition: HOME SELF-CARE
== END 2019-06-21 15:14 | disposition home or self-care (01) | DRG 381 ==
LOC: EC 11:33 → 2SICU 11:58 → 5NMEDONC 06-19 11:02
PROVIDERS: ADMIT Hospitalist; ATTEND Hospitalist
PROC: 0DJ08ZZ Inspection of Upper Intestinal Tract, Via Natural or Artificial Opening Endoscopic (ICD-10-PCS; principal; 2019-06-19 08:00)
DX: K22.11 Ulcer of esophagus with bleeding (principal); E87.2 Acidosis; D62 Acute posthemorrhagic anemia; F10.239 Alcohol dependence with withdrawal, unspecified; K29.61 Other gastritis with bleeding; F41.1 Generalized anxiety disorder; G62.9 Polyneuropathy, unspecified; I10 Essential (primary) hypertension; F31.9 Bipolar disorder, unspecified; F17.210 Nicotine dependence, cigarettes, uncomplicated; J44.9 Chronic obstructive pulmonary disease, unspecified; K44.9 Diaphragmatic hernia without obstruction or gangrene; K21.0 Gastro-esophageal reflux disease with esophagitis; E78.5 Hyperlipidemia, unspecified; R56.9 Unspecified convulsions; Z79.899 Other long term (current) drug therapy; Z87.19 Personal history of other diseases of the digestive system; Z98.890 Other specified postprocedural states; Z82.49 Family history of ischemic heart disease and other diseases of the circulatory system; Z80.3 Family history of malignant neoplasm of breast
CPT/HCPCS: 36415; 43235; 80048; 80053; 82607; 83605; 84484; 85025; 85027; 85610; 85730; 86850; 86900; 86901; 93005; 96365; 96374; 96375; 96376; 99285

== ENCOUNTER 2020-01-11 03:32 | Emergency (ER) | payer OTHER ==
[2020-01-11 03:41] VITALS: RESP 18
--- NOTE | 2020-01-11 06:53 | ED ---
General Adult HPI - General Chief complaint: Fall Stated complaint: weakness Time Seen by Provider: 01/11/20 03:36 Source: patient, EMS, RN notes reviewed Mode of arrival: EMS Limitations: physical limitation - History of Present Illness Initial comments: patient is 59-year-old man who had a fall earlier and resulted in having low back pain and pain to his bilateral knees where he hit the ground. Patient rates the pain as mild unless he is moving then the pain becomes severe. No weakness or numbness of the extremities. No change in bladder or bowel function anesthesia. -: hour(s) Location: back, left, right, lower extremity Radiation: non-radiation Quality: aching Consistency: constant Improves with: none Worsens with: movement Associated Symptoms: denies other symptoms Treatments Prior to Arrival: none - Related Data Home Medications Medication Instructions Recorded Confirmed DULoxetine HCL [Cymbalta] 30 mg PO TID 01/05/18 06/18/19 clonazePAM [KlonoPIN] 1 mg PO TID 06/18/19 01/11/20 Ferrous Sulfate [Feosol] 325 mg PO DAILY 01/11/20 01/11/20 Gabapentin [Neurontin] 100 mg PO BID 01/11/20 01/11/20 amLODIPine [Norvasc] 10 mg PO DAILY 01/11/20 01/11/20 Previous Rx's Medication Instructions Recorded lamoTRIgine 150 mg PO DAILY #30 tablet 11/24/17 Pantoprazole Sodium [Protonix] 40 mg PO BID #60 tablet. 01/20/18 Allergies Allergy/AdvReac Type Severity Reaction Status Date / Time No Known Allergies Allergy Verified 01/11/20 06:49 Review of Systems ROS Statement: Those systems with pertinent positive or pertinent negative responses have been documented in the HPI. ROS Other: All systems not noted in ROS Statement are negative. Constitutional: Denies: fever, chills, weakness Respiratory: Denies: cough, dyspnea Cardiovascular: Denies: chest pain, edema, syncope Gastrointestinal: Denies: abdominal pain, vomiting, diarrhea Genitourinary: Denies: dysuria, frequency, hematuria, testicular pain Musculoskeletal: Reports: as per HPI, back pain, arthralgia (bilateral knees) Skin: Denies: rash Neurological: Denies: headache, weakness, numbness, paresthesias Hematological/Lymphatic: Denies: easy bleeding Past Medical History Past Medical History: COPD, Hyperlipidemia, Hypertension Additional Past Medical History / Comment(s): Pt recently admitted on 01/05/18 with acute GI bleed, had dark stool and hematemesis-likely upper GI, acute blood loss anemia. Other hx: Alcoholism, alcohol withdrawal with seizure, chronic back pain/DDD, bilateral feet numb/tingling/pain, poor balance, sinusitis, epistaxis History of Any Multi-Drug Resistant Organisms: None Reported Past Surgical History: Back Surgery, Bladder Surgery, Hernia Repair Additional Past Surgical History / Comment(s): Back surgery 2005-L4, dilatation of ureter, L inguinal hernia, colonoscopy-normal Past Anesthesia/Blood Transfusion Reactions: No Reported Reaction Additional Past Anesthesia/Blood Transfusion Reaction / Comment(s): Pt has received blood in past without reaction. Past Psychological History: Anxiety, Bipolar, Depression Past Alcohol Use History: Abuse, Heavy Past Drug Use History: None Reported - Past Family History Father Family Medical History: Coronary Artery Disease (CAD) Additional Family Medical History / Comment(s): Bipolar, heart problems - open heart surgery. Mother Family Medical History: Cancer, Coronary Artery Disease (CAD) Additional Family Medical History / Comment(s): History of breast cancer, open heart surgery. General Exam Limitations: physical limitation General appearance: alert, in no apparent distress Head exam: Present: atraumatic, normocephalic Eye exam: Present: normal appearance. Absent: scleral icterus, conjunctival injection Neck exam: Present: normal inspection, full ROM Respiratory exam: Present: normal lung sounds bilaterally. Absent: respiratory distress, wheezes, rales, rhonchi, stridor, chest wall tenderness Cardiovascular Exam: Present: regular rate, normal rhythm, normal heart sounds. Absent: systolic murmur, diastolic murmur, rubs, gallop GI/Abdominal exam: Present: soft. Absent: distended, tenderness, guarding, rebound, mass Extremities exam: Present: normal inspection, normal capillary refill. Absent: pedal edema, calf tenderness Back exam: Present: normal inspection, paraspinal tenderness, vertebral tenderness, other (there istenderness to palpation low back over the entire lumbar area. No real point tenderness). Absent: CVA tenderness (R), CVA tenderness (L) Neurological exam: Present: alert, oriented X3, CN II-XII intact, reflexes normal. Absent: motor sensory deficit Psychiatric exam: Present: normal affect Skin exam: Present: warm, dry, intact, normal color, other (contusions bilateral anterior knee). Absent: rash Course Vital Signs 01/11/20 01/11/20 01/11/20 03:35 06:17 08:00 Temperature 98.2 F 98.1 F Pulse Rate 104 H 95 94 Respiratory 18 18 18 Rate Blood Pressure 114/86 136/87 138/88 O2 Sat by Pulse 97 97 97 Oximetry Medical Decision Making - Medical Decision Making his patient is 59-year-old man transferred here from [facility] to see about having admission for alcohol rehabilitation after he had a ground-level fall. The patient was refusing to stay for rehab. He states his intention is to go back to drinking anyways. He is able robe up and ambulate. No evidence of neurologic compromise. Patient does request discharge Disposition Clinical Impression: Alcohol use disorder, Lumbar compression fracture Disposition: HOME SELF-CARE Condition: Fair Instructions (If sedation given, give patient instructions): Vertebral Compression Fracture (ED), Abuse of Alcohol (DC) Is patient prescribed a controlled substance at d/c from ED?: No Referrals: Vitor Lomas MD [Primary Care Provider] - 1-2 days Whit Gomes DO [Doctor of Osteopathic Medicine] - 1-2 days
--- NOTE | 2020-01-11 06:59 | XR ---
EXAMINATION TYPE: XR lumbar spine 2 or 3V DATE OF EXAM: 01/11/2020 CLINICAL HISTORY: Fall injury with low back pain. TECHNIQUE: Frontal and lateral images of the lumbar spine are obtained. COMPARISON: Prior lumbar spine x-ray June 16, 2014 . Abdominal KUB x-ray 2018 FINDINGS: There are 5 lumbar type vertebral bodies redemonstrated. Moderate compression type fractur e L3 level new from 2014 shows fairly sclerotic superior endplate but there is linear lucency through the anterior superior portion. Finding new from 2018 abdominal x-ray. Alignment remains satisfactory . Moderate disc space narrowing L5-S1 level redemonstrated. Overlying vascular calcification aorta ag ain seen. IMPRESSION: Moderate compression type fracture deformity at L3 level age somewhat indeterminate but n ew from December 2017. Cannot exclude acute component particularly involving the anterior superior por tion of vertebra. Correlate clinically.
[2020-01-11 08:03] VITALS: BP 138/88; PULSE 94; TEMP 98.1
== END 2020-01-11 08:02 | disposition home or self-care (01) ==
LOC: EC 03:32
DX: S32.038A Other fracture of third lumbar vertebra, initial encounter for closed fracture (principal); S80.02XA Contusion of left knee, initial encounter; S80.01XA Contusion of right knee, initial encounter; F41.9 Anxiety disorder, unspecified; F31.9 Bipolar disorder, unspecified; I10 Essential (primary) hypertension; Z79.899 Other long term (current) drug therapy; W18.30XA Fall on same level, unspecified, initial encounter
CPT/HCPCS: 72100; 99283